=== PATIENT | female | born 1985 | race Caucasian/White ===

== ENCOUNTER 2020-12-23 11:19 | Emergency (ER) | payer SELFPAY ==
--- OUTSIDE RECORDS SUMMARY | 2020-12-23 11:22 | XMS REPORT | Clinical Summary ---
:1985 Author Organization [facility] MD [facility] Address [address] [place] [address] Care Team Providers Name Role Phone MD Mariluz Primary Care Provider MD Mariluz Unavailable BARTOLO Matta Unavailable Patrick Preston PhD Unavailable Allergies No Known Active Allergies Medications Medication Sig Dispensed Refills Start Date End Date Status VIT/IRON Take 1 tablet by 0 Active FUMARATE/FA ( mouth daily. ORAL) Leonid's wort 150 Take 2 capsules by 0 Active mg cap mouth twice daily. UNABLE TO FIND Take 2 capsules by 0 Active mouth twice daily. Med Name:goat weed psyllium seed, with Take 520 mg by 0 Active dextrose, (FIBER mouth daily. ORAL) topiramate (TOPAMAX) Take by mouth 0 Active 25 mg tablet daily. Active Problems Problem Noted Date Numbness of face 07/05/2018 Feeling of lump in throat 07/05/2018 Overview: 01/15 Regulatory Import Vocal cord paralysis 05/13/2015 Hoarse 01/30/2015 Thyroid nodule 12/16/2014 Encounters Date Type Specialty Care Team Description 07/26/2020 Orders Only Infectious Diseases Raciel Okeefe MD S ARS-CoV-2 vaccination after 12/24/2019 Surgical History Surgery Date Site/Laterality Comments THYROID LOBECTOMY Left NC REVISION OF LARYNX, 07/28/2015 Neck/Left Procedure : Thyroplasty; UNSPECIFIED Surgeon: Tong Lisa MD; Location: MAIN O R; Service: [facility] - HEAD & NECK SURGERY Medical devices from this surgery are in t he Implants section. NC LARYNGOSCOPY FLX/RGD 07/28/2015 N/A Procedur e: Flexible TELESCOPIC W/STROBOSCOPY Fiberop tic Laryngoscopy with Stroboscopy; [place] rgeon: Ruddy Norris, PhD; Loc ation: MAIN OR; Service: [facility] - HEAD & NECK ENDOCRINE Medical devices from this surgery are in t he Implants section. Medical History Medical History Date Comments Depression Multinodular goiter Social History Tobacco Use Types Packs/Day Years Used Date Never Smoker Alcohol Use Standard Drinks/Week Comments Yes 1 (1 standard drink = 0.6 oz pure alcoho l) Sex Assigned at Date Recorded Not on file Last Filed Vital Signs Not on file Plan of Treatment Health Maintenance Due Date Last Done Comments COVID-19 Vaccination (1) 1995 Implants Implanted Type Area Pier Hand Device Shelf Model / Identifier Expiration Serial / Date Lot Thyroplasty Implant Female Size 8 ([place]) - [id number] Implant Left: [facility] 12/15/2018 MT-08 / Implanted: Qty: 1 on 07/28/2015 by Tong Lisa MD at [facility] [employer] / [id number] Results Not on fileafter 12/24/2019 Insurance Payer Benefit Plan / Subscriber ID Effective Dates Phone Addre ss Type Group AETNA MANAGED CARE AETNA O [id number] 2007-Present HMO Pham [employer]ver Personal/Family Self 1985 [id number]Home) [facility] [place] [id number] Pham Grover Personal/Family Self 1985 [phone] [id number] (Home) [place] [id number]
--- OUTSIDE RECORDS SUMMARY | 2020-12-23 11:32 | XMS REPORT | Continuity of Care Document ---
:1985 Author Organization [facility] t Address [address] [place] [address] Care Team Providers Name Role Phone NO Primary Care Physician Unavailable HESTLA Attending Clinician Unavailable Felice LOBO, P. Attending Clinician Sary LOBO Attending Clinician REYNOLDS Attending Clinician Unavailable ANA Attending Clinician Unavailable Payers Payer Name Policy Type Policy Number Effective Date Expiration Date S danelle AETNA MANAGED [id number] 2007 MD Yousif CAREAETNA 00:00:00 [id number] Problems Condition Condition Condition Status Onset Resolution Last Treating Co mments Source Name Details Category Date Date Treatment Clinician Date Numbness Numbness Disease Active of face of face 3-21 Anderso 00:00: n 00 Feeling of Feeling of Disease Active Overview : lump in lump in 3-21 Formattin Wes so throat throat 00:00: g of this n 00 note might be different from the original. 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 05-13 Corky rso 00:00: n 00 Hoarse Hoarse Disease Active 2014-04 0-16 Anderso 00:00: n 00 Thyroid Thyroid Disease Active nodule nodule 12-16 Anderso 00:00: n 00 PHYSICAL Condition Active 2014-07-07 M emoria EXAMINATIO 07-02 08:50:00 l N PHYSICAL 00:00: Jorge n EXAMINATIO 00 N Active 07/02/2014 Condition 5 [facility] No known No known Disease Metho di active active st problems problems Hospit a l Allergies, Adverse Reactions, Alerts Allergy Allergy Status Severity Reaction(s) Onset Inactive Treating Comm ents Source Name Type Date Date Clinician Miconazo Propensi Active Hives Method i le ty to 07 st adverse 00:00: Hospita reaction 00 l s to drug No Known DA Active U [facility] No Known DA Active U 2006- [facility] Contrast 0-18 [place] Allergie 00:[facility]: e s 00 [facility] No Known DA Active U 2005-1 [facility] Drug 0-18 [place] All[facility] 00:[facility]: e s 00 [facility] No Known DA Active U 2006-1 [facility] Food 0-18 [place] All[facility]ie 00:[facility]: e s 00 [facility] No Known DA Active U 2006-1 [facility] Other 0-18 [place] All[facility]ie 00:00: e s 00 [facility] Center Family History Family Member Diagnosis Comments Start Date Stop Date Source Natural father No Known Problems Met [facility] Natural mother Fibromyalgia [facility]is t [facility] Natural mother Migraines [facility] Social History Social Habit Start Date Stop Date Quantity Comments Source History SDOH [facility] Alcohol Std Drinks Hospit al History SDAZ [facility] Alcohol Binge Hospital Tobacco use and 2019-08-08 2019-08-08 Never used Taoism exposure 00:00:00 00:00:00 Hospital Alcohol intake 2019-08-08 2019-08-08 Current Taoism 00:00:00 00:00:00 non-drinker of Hospital alcohol (finding) History SDAZ 2018-04-26 2018-04-26 1 [facility] Alcohol Frequency 00:00:00 00:00:00 Hospita l Sex Assigned At [birth year] MD Ortega on 00:00:00 00:00:00 Smoking Status Start Date Stop Date Source Never smoker [facility] al Medications Ordered Filled Start Stop Current Ordering Indication Dosage Frequency Signature Comments Components Source Medication Medication Date Date Medication? Clinician (SIG) Name Name butmarielenabital- Yes 1{tbl} Q6H Take 1 Me thodi acetaminoph 4-[address] en-caff 00:00: mouth Hospita (Esgic) 00 every 6 l 50-325-40 (six) mg per hours as tablet needed for headaches. Ajovy 225 Yes 225mg Inject 225 M ethodi mg/1.5 mL 4-[address] syringe 00:00: directed. Hospi ta 00 l topiramate Yes Take by (TOPAMAX) 3-21 mouth Anderso 25 mg 21:07: daily. n tablet 42 Yes 1{tbl} Take 1 MD VIT/IRON 3-21 tablet by Jordan o FUMARATE/FA 20:08: mouth n ( 37 daily. ORAL) Leonid's Yes 2{capsu Take 2 MD wort 150 mg 3-21 le} capsules Corky rso cap 20:08: by mouth n 37 twice daily. UNABLE TO Yes 2{capsu Take 2 MD FIND 3-21 le} capsules Anderso 20:08: by mouth n 37 twice daily. Med Name:goat weed psyllium Yes 520mg Take 520 MD seed, with 3-21 mg by Anderso dextrose, 20:08: mouth n (FIBER 37 daily. ORAL) Immunizations Ordered Immunization Filled Immunization Date Status Commen ts Source Name Name PFIZER COVID-19 MRNA 2020-08-21 Completed Meth odist VACCINATION 00:00:00 Hospital PFIZER COVID-19 MRNA 2020-07-31 Completed Meth odist VACCINATION 00:00:00 Hospital Vital Signs Vital Name Observation Time Observation Value Comments Source Body Temperature 2019-10-13 00:35:00 98.3 [degF] [facility] Weight 2019-10-12 18:40:00 160 [lb_av] [facility] BMI (Body Mass Index) 2019-10-12 18:40:00 27.5 kg/m2 [facility] Weight 2014-07-02 19:37:53 [facility] Height 2014-07-02 19:37:53 [facility] [place] Respitory Rate 2014-07-02 19:37:53 [facility] [place] Temperature Oral (F) 2014-07-02 19:37:53 98.0 F [facility] Heart Rate 2014-07-02 19:37:53 [facility] [place] Systolic (mm Hg) 2014-07-02 19:37:53 Foreign rial [place] Diastolic (mm Hg) 2014-07-02 19:37:53 Mem orial [place] Procedures Procedure Date / Time Performed Performing Clinician [facility] e Computed tomography of 2019-10-12 00:00:00 JOSE Guo - abdomen and pelvis with Patients Medical contrast Center Plan of Care Planned Activity Planned Date Details Comments Source Future Scheduled Test 1995 COVID-19 Vaccination MD Yousif 00:00:00 (1) [code = COVID-19 Vaccination (1)] Future Scheduled Test Hepatitis C Method [facility] Hospital screening (procedure) [code = 680768772] Future Scheduled Test Screening for [facility] malignant neoplasm of cervix (procedure) [code = 435122063] Future Scheduled Test [facility] [code = INFLUENZA VACCINE] Instructions Abdominal Pain - [facility] - Adult Patients [facility] Instructions Alcohol Abuse [facility] Encounters Start End Encounter Admission Attending Care Care Encounter Source Date/Time Date/Time Type Type Clinicians Facility Department ID 2020-11-25 Outpatient [facility] [id number] [facility] 11:03:38 YVONNE 2020-10-27 2020-10-27 Outpatient SOHAM ROUSSEAU [id number] [facility] 14:30:00 14:30:00 10 l [place] 2020-08-21 2020-08-21 Marcia Fraire 1.2.840.1 [id number] Methodi 08:15:38 08:20:38 Support Moises [address]01.1.[address] PJakob 3.430.2.7 Hospit a .3.174099 l .8 2020-08-21 2020-08-21 Travel 1.2.840.1 1.2.251.695 [id number] Methodi 00:00:00 00:00:[address] 3.430.2.7 0.2.7.3.698 Ho spita .3.304844 084.8 l .8 2020-08-21 2020-08-21 Outpatient FELICE, [facility] [id number] [address] [place] [address] 00:00:00 00:00:00 ANNEMARIESINDY [address] 2020-08-13 2020-08-13 Travel 1.2.840.1 1.2.507.787 [id number] Methodi 00:00:00 00:00:[address] 3.430.2.7 0.2.7.3.698 Ho spita .3.133315 084.8 l .8 2020-07-31 2020-07-31 Clinical 1.2.840.1 [id number] Methodi 08:19:44 08:24:[address] 3.430.2.7 Hospit a .3.879928 l .8 2020-07-31 2020-07-31 Outpatient [facility] [id number] [address] [place] [address] 00:00:00 00:00:[address] 2020-02-20 2020-02-20 Outpatient MHIE MHIE [id number] Memoria 10:30:00 10:30:00 09 liu Toth 2019-12-25 2019-12-25 Outpatient MHIE MHIE [id number] [facility]oria 08:30:00 08:30:00 08 liu Toth 2019-10-14 2019-10-14 Outpatient MHKM MH[facility] [id number] Memoria 06:50:00 06:50:00 liu hatfield 2019-10-12 2019-10-12 Registered [address] [facility] [id number] [facility] [address] 18:46:00 18:46:00 Emergency [place] Patients 83 [facility] - [facility] 2019-08-08 2019-08-08 Outpatient REGINO PEREZ [facility] [id number] [place] 00:00:00 00:00:[address] 2019-03-11 2019-03-11 Outpatient MHIE MHIE [id number] Memoria 12:30:00 12:30:00 07 liu Toth 2018-02-20 2018-02-20 Outpatient MHIE MHIE [id number] Memoria 11:00:00 11:00:00 06 liu Toth 2017-12-15 2017-12-15 Outpatient MHIE MHIE [id number] Memoria 12:30:00 12:30:00 05 liu Toth 2017-11-30 2017-11-30 Outpatient MHIE MHIE [id number] Memoria 11:00:00 11:00:00 04 liu Toth 2017-08-16 2017-08-16 Outpatient MHIE MHIE [id number] Memoria 12:00:00 12:00:00 03 liu Toth 2017-03-13 2017-03-13 Outpatient MHIE MHIE [id number] Memoria 08:00:00 08:00:00 02 liu Toth 2017-01-20 2017-01-20 Outpatient MHIE MHIE [id number] Memoria 08:30:00 08:30:00 01 liu Toth 2016-11-21 2016-11-21 Outpatient MHIE MHIE [id number] Memoria 11:30:00 11:30:00 00 liu Toth 2014-07-07 2014-07-07 Lab Report [facility] [id number] Memoria 00:00:00 00:00:00 harley Toth [id number] liu Medical [facility] Kruse 2014-07-02 2014-07-02 Office [facility] [id number] Memoria 00:00:00 00:00:00 Visit harley Toth [id number] liu Kruse Results Test Description Test Time Test Comments Results Result Sour e Comments CT ABDOMEN/PELVIS 2019-10-12 W 23:44:00 [facility] [address] [place] [address] Patient Name: SHELTON KUMAR MR #: [id number] : 1985 Age/Sex: 34/F Req #: [id number] [facility] Physician: Ordered by: RIKY TAYLOR DO Report #: [id number] Location: ER Room/Bed: Procedure: [id number] CT/CT ABDOMEN/PELVIS W Exam Date: 10/12/19 Exam Time: 2319 REPORT STATUS: Signed EXAMINATION: CT of the abdomen and pelvis with contrast. TECHNIQUE: Spiral CT images of the abdomen and pelvis were performed from the lung bases to the lesser trochanters after the intravenous administration of 100 cc of Isovue 370 and the oral administration of water. Coronal and sagittal reformatted images were obtained. COMPARISON: None. CLINICAL HISTORY:Diffuse abdominal pain. History of alcohol abuse DISCUSSION: ABDOMEN/PELVIS: LOWER THORAX:Mild dependent atelectasis in the left lower lobe. HEPATOBILIARY: Decreased attenuation of the hepatic parenchyma compared to the spleen, consistent with steatosis. The liver is moderately enlarged, measuring approximately 20 cm at the midclavicular line. No focal lesions. No intra or extrahepatic biliary ductal dilation. GALLBLADDER: No radio-opaque stones or sludge. Gallbladder is not fully distended. Mild wall enhancement. No pericholecystic fluid or fat stranding. SPLEEN: No splenomegaly. PANCREAS: No focal masses or ductal dilatation. Normal parenchymal enhancement. No peripancreatic/strandin g/inflammatory changes, free fluid or fluid collections. ADRENALS: No adrenal nodules. KIDNEYS/URETERS: No hydronephrosis, stones, or solid mass lesions. PELVIC ORGANS/BLADDER: Bladder and uterus are unremarkable. Bilateral Essure devices. No adnexal masses. 2.4 cm simple fluid structure in the left ovary, likely representing a dominant follicle. PERITONEUM/RETROPERITON EUM: No free air or fluid. LYMPH NODES: No intra-abdominal, retroperitoneal, pelvic or inguinal lymphadenopathy. VESSELS: The celiac trunk,superior and inferior mesenteric and bilateral renal arteries are patent The portal, superior mesenteric and splenic veins are patent. GI TRACT: No bowel dilation or evidence of obstruction. No pericolonic inflammatory changes. Appendix is well identified and normal in caliber. No wall thickening. Stomach is unremarkable. BONES AND SOFT TISSUE: No aggressive lytic or suspicious sclerotic lesions. Soft tissues are grossly unremarkable. IMPRESSION: 1. No acute abdominopelvic abnormalities. No evidence of pancreatitis. 2. Mild gallbladder wall enhancement, however, the gallbladder is not fully distended. No radiopaque stones, definite wall thickening, pericholecystic fluid or surrounding fat stranding to suggest cholecystitis. 3. Moderate hepatomegaly with diffuse fatty infiltration. Signed by: Dr. Cyrus Boothe M.D. on 10/12/2019 11:50 PM Dictated By: CYRUS BOOTHE MD 49 Transcribed By: ROQUE on 10/12/192349 COPY TO: RIKY TAYLOR DO CHEST SINGLE 2019-10-12 (PORTABLE) 22:16:00 [place] [address] Patient Name: SHELTON KUMAR MR #: [id number] : 1985 Age/Sex: 34/F Req #: [id number] Adm Physician: Ordered by: L[place]ON REYNOLDS DO Report #: [id number] Location: ER Room/Bed: Procedure: [id number] DX/CHEST SINGLE (PORTABLE) Exam Date: 10/12/19 Exam Time: 2144 REPORT STATUS: Signed Examination: Single AP view of the chest. COMPARISON: None. INDICATION: Abdominal pain, history of alcohol abuse IMPRESSION: 1. Lines and Tubes: None 2. Lungs are grossly clear. No consolidation or effusion. 3. Cardiomediastinal silhouette is normal. Pulmonary vasculature is normal. 4. No acute bony abnormalities. Signed by: Dr. Cyrus Boothe M.D. on 10/12/2019 10:16 PM Dictated By: CYRUS BOOTHE MD 15 Transcribed By: ROQUE on 10/12/192215 COPY TO: [place] REYNOLDS DO Serum or plasma protein measurement (mass/volume) 2019-10-12 20:43:00 Test Item Value Reference Range Interpretation Comme nts Total Protein (test code = 2885-2) 7.7 6.5-8.1 [facility] plasma albumin measurement (mass/volume)2019-10-12 20:43:00 Test Item Value Reference Range Interpretation Comments Albumin (test code = 1751-7) 3.9 3.5-5.0 [facility] globulin measurement (mass/volume) 2019-10-12 20:43:00 Test Item Value Reference Range Interpretation Comments Globulin (test code = 38836-2) 3.8 2.3-3.5 [facility] or plasma albumin/globulin mass [id number] 20:43:00 Test Item Value Reference Range Interpretation Comments Albumin/Globulin Ratio (test code = 1.0 0.8-2.0 1759-0) [facility] or plasma alkaline phosphatase measurement (enzymatic activity/volume)2019-10-12 20:43:00 Test Item Value Reference Range Interpretation Comments Alkaline Phosphatase (test code = 130 40-150 6768-6) [facility] or plasma amylase measurement (enzymatic activity/volume)2019-10-12 20:43:00 Test Item Value Reference Range Interpretation Comments Amylase Level (test code = 1798-8) 39 25-125 [facility] plasma lipase measurement (enzymatic activity/volume)2019-10-12 20:43:00 Test Item Value Reference Range Interpretation Comments Lipase (test code = 3040-3) 115 8-78 [facility] plasma ethanol measurement (mass/volume)2019-10-12 20:43:00 Test Item Value Reference Range Interpretation Comments Ethyl Alcohol Level (test code = < 10.0 0.0-10.0 5643-2) [facility] leukocytes automated count (number/volume)2019-10-12 20:43:00 Test Item Value Reference Range Interpretation Comments White Blood Count (test code = 6690-2) 9.08 4.8-10.8 [facility] erythrocytes automated count (number/volume)2019-10-12 20:43:00 Test Item Value Reference Range Interpretation Comments Red Blood Count (test code = 789-8) 3.60 3.6-5.1 [facility] hemoglobin measurement (moles/volume)2019-10-12 20:43:00 Test Item Value Reference Range Interpretation Comments Hemoglobin (test code = 56551-5) 12.2 12.0-16.0 [facility] HospitalAutomated blood hematocrit (volume fraction)2019-10-12 20:43:00 Test Item Value Reference Range Interpretation Comments Hematocrit (test code = 4544-3) 36.7 34.2-44.1 [facility] HospitalAutomated erythrocyte mean corpuscular kkrldu7290-21-11 20:43:00 Test Item Value Reference Range Interpretation Comments Mean Corpuscular Volume (test code = 101.9 81-99 787-2) [facility] HospitalAutom[facility] erythrocyte mean corpuscular hemoglobin (mass per erythrocyte)2019-10-12 20:43:00 Test Item Value Reference Range Interpretation Comments Mean Corpuscular Hemoglobin (test code 33.9 28-32 = 785-6) [facility] HospitalAutom[facility] erythrocyte mean corpuscular hemoglobin concentration measurement (mass/volume)2019-10-12 20:43:00 Test Item Value Reference Range Interpretation Comments Mean Corpuscular Hemoglobin Concent 33.2 31-35 (test code = 786-4) [facility] HospitalRDW LwzGd-Dve7991-83-27 20:43:00 Test Item Value Reference Range Interpretation Comments Red Cell Distribution Width (test code 16.5 11.7-14.4 = 30452-4) [facility] HospitalAutomated blood platelet count (count/volume)2019-10-12 20:43:00 Test Item Value Reference Range Interpretation Comments Platelet Count (test code = 777-3) 269 140-360 [facility] HospitalAutomated blood segmented neutrophil count as percentage of total qfyxipfpcf0366-77-24 20:43:00 Test Item Value Reference Range Interpretation Comments Neutrophils (%) (Auto) (test code = 53.8 38.7-80.0 45665-4) [facility] HospitalAutomated blood lymphocyte count as percentage ot total blsmfjufex5460-62-22 20:43:00 Test Item Value Reference Range Interpretation Comments Lymphocytes (%) (Auto) (test code = 31.4 18.0-39.1 736-9) [facility] HospitalAutomated blood monocyte count as percentage of total ialcvpzlfa6479-95-93 20:43:00 Test Item Value Reference Range Interpretation Comments Monocytes (%) (Auto) (test code = 10.6 4.4-11.3 5905-5) [facility] HospitalAutomated blood eosinophil count as percentage of total athznhspun0563-19-87 20:43:00 Test Item Value Reference Range Interpretation Comments Eosinophils (%) (Auto) (test code = 2.5 0.0-6.0 713-8) [facility] HospitalAutomated blood basophil count as percentage of total pnkktvccvl8295-29-88 20:43:00 Test Item Value Reference Range Interpretation Comments Basophils (%) (Auto) (test code = 1.3 0.0-1.0 706-2) [facility] HospitalFluoroscopic procedure less than one hour [id number] 20:43:00 Test Item Value Reference Range Interpretation Comments IM GRANULOCYTES % (test code = IM 0.4 0.0-1.0 GRANULOCYTES %) [facility] HospitalAutomated blood neutrophil count 2019-10-12 20:43:00 Test Item Value Reference Range Interpretation Comments Neutrophils # (Auto) (test code = 4.9 2.1-6.9 751-8) [facility] HospitalBlood lymphocytes count (number/volume) 2019-10-12 20:43:00 Test Item Value Reference Range Interpretation Comments Lymphocytes # (Auto) (test code = 2.9 1.0-3.2 99567-8) [facility] HospitalBlood monocytes automated count (number/volume)2019-10-12 20:43:00 Test Item Value Reference Range Interpretation Comments Monocytes # (Auto) (test code = 742-7) 1.0 0.2-0.8 [facility] HospitalAutomated blood eosinophil count 2019-10-12 20:43:00 Test Item Value Reference Range Interpretation Comments Eosinophils # (Auto) (test code = 0.2 0.0-0.4 711-2) [facility] HospitalAutomated blood basophil count (count/volume)2019-10-12 20:43:00 Test Item Value Reference Range Interpretation Comments Basophils # (Auto) (test code = 704-7) 0.1 0.0-0.1 [facility] HospitalFluoroscopic procedure less than one hour [id number] 20:43:00 Test Item Value Reference Range Interpretation Comments Absolute Immature Granulocyte (auto 0.04 0-0.1 (test code = Absolute Immature Granulocyte (auto) [facility] HospitalUrine color [id number] 20:43:00 Test Item Value Reference Range Interpretation Comments Urine Color (test code = 5778-6) YELLOW YELLOW [facility] HospitalUrine [id number] 20:43:00 Test Item Value Reference Range Interpretation Comments Urine Clarity (test code = 01620-7) CLEAR CLEAR [facility]land[facility] gravity of Urine by Test strip 2019-10-12 20:43:00 Test Item Value Reference Range Interpretation Comments Urine Specific [place] (test code = 1.025 1.010-1.025 5811-5) [facility] HospitalUrine pH measurement by automated test [id number] 20:43:00 Test Item Value Reference Range Interpretation Comments Urine pH (test code = 98550-9) 6 5-7 [facility] HospitalUrine leukocyte esterase detection by pefkgkcz0809-59-95 20:43:00 Test Item Value Reference Range Interpretation Comments Urine Leukocyte Esterase (test code NEGATIVE NEGATIVE = 5799-2) [facility] HospitalUrine nitrite ebipxktlo6335-82-27 20:43:00 Test Item Value Reference Range Interpretation Comments Urine Nitrite (test code = 45774-8) NEGATIVE NEGATIVE [facility] HospitalUrine protein measurement by test strip (mass/volume)2019-10-12 20:43:00 Test Item Value Reference Range Interpretation Comments Urine Protein (test code = 5804-0) NEGATIVE NEGATIVE [facility] HospitalUrine glucose [id number] 20:43:00 Test Item Value Reference Range Interpretation Comments Urine Glucose (UA) (test code = NEGATIVE NEGATIVE 2349-9) [facility] HospitalUrine ketones detection by automated test [id number] 20:43:00 Test Item Value Reference Range Interpretation Comments Urine Ketones (test code = 34130-8) TRACE NEGATIVE [facility] HospitalUrine opiates screening [id number] 20:43:00 Test Item Value Reference Range Interpretation Comments Urine Opiates Screen (test code = NEGATIVE NEGATIVE 24776-0) ALL TESTS PERFORMED MANUALLY ON Qloo TOX/SEE TEST --- 10/12/192131 ---OPIATES previously reported as: ALL TESTS PERFORMED MANUALLY ON Qloo TOX/SEE TESTSt. Luke[facility] HospitalBarbiturates screen, urine 2019-10-12 20:43:00 Test Item Value Reference Range Interpretation Comments Urine Barbiturates Screen (test code NEGATIVE NEGATIVE = 891978431) [facility] HospitalUrine phencyclidine detection by screening [id number] 20:43:00 Test Item Value Reference Range Interpretation Comments Urine Phencyclidine Screen (test NEGATIVE NEGATIVE code = 81540-5) [facility] HospitalUrine amphetamines detection by screen method > 1000 [id number] 20:43:00 Test Item Value Reference Range Interpretation Comments Urine Amphetamines Screen (test code NEGATIVE NEGATIVE = 13904-1) [facility] HospitalFluoroscopic procedure less than one hour [id number] 20:43:00 Test Item Value Reference Range Interpretation Comments Urine Methamphetamines Screen (test NEGATIVE NEGATIVE code = Urine Methamphetamines Screen) [facility] HospitalUrine benzodiazepines detection by screening [id number] 20:43:00 Test Item Value Reference Range Interpretation Comments Urine Benzodiazepines Screen (test POSITIVE NEGATIVE code = 52701-4) This test provides only a screen. Positive results should be repeated by a confirmatory test.[facility] HospitalUrine cocaine measurement (mass/volume)2019-10-12 20:43:00 Test Item Value Reference Range Interpretation Comments Urine Cocaine Screen (test code = NEGATIVE NEGATIVE 3398-5) [facility] HospitalUrine cannabinoids detection by screening [id number] 20:43:00 Test Item Value Reference Range Interpretation Comments Urine Cannabinoids Screen (test code NEGATIVE NEGATIVE = 09990-9) THESE RESULTS ARE FOR MEDICAL TREATMENT ONLYTHIS REPORT CONTAINS UNCONFIRMED SCREENING RESULTS*POSITIVE RESULTS WILL BE CONFIRMED BY REFERENCE LAB UPON REQUEST CUT-OFFDRUG CLASS CONCENTRATION ng/mLAmphetamines 1000Met hamphetamines 1000Cocaine 300Opiate 300Phencyclidine 25Cannabinoid 50Barbiturates 300Benzodiazepine 300Methadone 300 --- 10/12/193 ---THC previously reported as: THESE RESULTS ARE FOR MEDICAL TREATMENT ONLYTHIS REPORT CONTAINS UNCONFIRMED SCREENING RESULTS*POSITIVE RESULTS WILL BE CONFIRMED BY REFERENCE LAB UPON REQUEST CUT-OFFDRUG CLASS CONCENTRATION ng/mLAmphetamines 1000Methamphetamines 1000Cocaine 300Opiate 300Phencyclidine 25Cannabinoid 50Barbiturates 300Benzodiazepine 300Methadone 300[facility] Center[facility] methadone [id number] 20:43:00 Test Item Value Reference Range Interpretation Comments Urine Methadone Screen (test code = NEGATIVE NEGATIVE 98120-0) THESE RESULTS ARE FOR MEDICAL TREATMENT ONLYTHIS REPORT CONTAINS UNCONFIRMED SCREENING RESULTS*POSITIVE RESULTS WILL BE CONFIRMED BY REFERENCE LAB UPON REQUEST CUT-OFFDRUG CLASS CONCENTRATION ng/mLAmphetamines 1000Met hamphetamines 1000Cocaine Metabolite 300Opiate 300Phencyclidine 25Cannabinoid 50Barbiturates 300Benzodiazepine 300Methadone 300[facility] urobilinogen measurement by test strip (mass/volume)2019-10-12 20:43:00 Test Item Value Reference Range Interpretation Comments Urine Urobilinogen (test code = 0.2 0.2-1 49709-5) [facility] HospitalU[facility] total bilirubin measurement (mass/volume)2019-10-12 20:43:00 Test Item Value Reference Range Interpretation Comments Urine Bilirubin (test code = 1978-6) NEGATIVE NEGATIVE [facility] erythrocytes erxxwhslb3957-57-24 20:43:00 Test Item Value Reference Range Interpretation Comments Urine Blood (test code = 96654-3) NEGATIVE NEGATIVE [facility] HospitalAutomated urine sediment leukocyte count by microscopy (number/high power field)2019-10-12 20:43:00 Test Item Value Reference Range Interpretation Comments Urine WBC (test code = 5821-4) 0-5 0-5 [facility] HospitalErythrocytes detection in urine sediment by light rtxusptuox2909-33-97 20:43:00 Test Item Value Reference Range Interpretation Comments Urine RBC (test code = 73982-8) 0-5 0-5 [facility] HospitalBacteria detection in urine sediment by light nhuduayhgq7853-58-65 20:43:00 Test Item Value Reference Range Interpretation Comments Urine Bacteria (test code = 28495-3) RARE NONE [facility] HospitalEpithelial cells detection in urine sediment by light oghqlcfieq2873-32-89 20:43:00 Test Item Value Reference Range Interpretation Comments Urine Epithelial Cells (test code = FEW NONE 82447-6) [facility] sodium measurement (moles/volume)2019-10-12 20:43:00 Test Item Value Reference Range Interpretation Comments Sodium Level (test code = 2951-2) 135 136-145 [facility] or plasma potassium measurement (moles/volume)2019-10-12 20:43:00 Test Item Value Reference Range Interpretation Comments Potassium Level (test code = 2823-3) 4.1 3.5-5.1 [facility] or plasma chloride measurement (moles/volume)2019-10-12 20:43:00 Test Item Value Reference Range Interpretation Comments Chloride Level (test code = 2075-0) 102 98-107 [facility] or plasma carbon dioxide, total measurement (moles/volume)2019-10-12 20:43:00 Test Item Value Reference Range Interpretation Comments Carbon Dioxide Level (test code = 2027-12) [facility] or plasma anion [id number] 20:43:00 Test Item Value Reference Range Interpretation Comments Anion Gap (test code = 55414-2) 13.1 8-16 [facility] or plasma urea nitrogen measurement (mass/volume)2019-10-12 20:43:00 Test Item Value Reference Range Interpretation Comments Blood Urea Nitrogen (test code = 11-09 3094-0) [facility] plasma creatinine measurement (mass/volume)2019-10-12 20:43:00 Test Item Value Reference Range Interpretation Comments Creatinine (test code = 2160-0) 0.68 0.57-1.11 [facility] or plasma urea nitrogen/creatinine mass [id number] 20:43:00 Test Item Value Reference Range Interpretation Comments BUN/Creatinine Ratio (test code = 10-09 3097-3) [facility] HospitalEstimated glomerular filtration rate (GFR) bcydlfmvlftlp9854-72-08 20:43:00 Test Item Value Reference Range Interpretation Comments Estimat Glomerular Filtration Rate > 60 >60 (test code = 200668563) Ranges were taken from the National Kidney Disease Education Program and the National Kidney Foundation literature.Reference ranges:60 or greater: [place]86- 59 (for 3 consecutive months): Chronic kidneydisease 15 or less: Kidney failure [facility] HospitalGlucose nvqxkaejgdt7552-91-47 20:43:00 Test Item Value Reference Range Interpretation Comments Glucose Level (test code = TPC2581) 97 74-118 [facility] or plasma calcium measurement (mass/volume)2019-10-12 20:43:00 Test Item Value Reference Range Interpretation Comments Calcium Level (test code = 49509-7) 9.8 8.4-10.2 [facility] or plasma total bilirubin measurement (mass/volume)2019-10-12 20:43:00 Test Item Value Reference Range Interpretation Comments Total Bilirubin (test code = 1975-2) 0.6 0.2-1.2 [facility] HospitalFluoroscopic procedure less than one hour yntukjdz4378-54-54 20:43:00 Test Item Value Reference Range Interpretation Comments Aspartate Amino Transf (AST/SGOT) (test 23 5-34 code = Aspartate Amino Transf (AST/SGOT)) [facility] or plasma alanine aminotransferase measurement (enzymatic activity/volume)2019-10-12 20:43:00 Test Item Value Reference Range Interpretation Comments Alanine Aminotransferase (ALT/SGPT) 23 0-55 (test code = 1742-6) [facility] HospitalUrine Nyfxxqa3346-72-96 08:41:36 Test Item Value Reference Range Interpretation Comments ORGANISM (test code = Enterococcus faecium ORGANISM) Ampicillin (test code = S Amp) Ciprofloxacin (test code S = Cipro) Levofloxacin (test code = S Levo) Nitrofurantoin (test code I = Nitro) Benzylpenicillin (test S code = Ruddy) Erythromycin (test code = I Eryth) Gentamicin synergy (test S code = Gent-Syn) Linezolid (test code = S Linez) Streptomycin synergy S (test code = Strep-Syn) Tetracycline (test code = S Tetra) Vancomycin (test code = S Vanc) Final Report (test code = >=100,000 cfu/ml Final Report) Enterococcus faecium C Urine Added by GL_SET_CULT_RFLXDrugs of Abuse Screen Bduzs5697-52-54 16:47:04 Test Item Value Reference Range Interpretation Comments Amphetamine Screen Ur Negative Negative (test code = Amphetamine Screen Ur) Barbiturate Screen Ur Negative Negative (test code = Barbiturate Screen Ur) Benzodiazepines Ur Positive Negative A (test code = Benzodiazepines Ur) Cocaine Screen Ur Negative Negative (test code = Cocaine Screen Ur) Opiate Screen Ur (test Negative Negative code = Opiate Screen Ur) U PCP Scrn (test code Negative N = U PCP Scrn) Cannabinoid Screen Ur Negative Negative This a ssay provides a (test code = preliminary velvet lytical Cannabinoid Screen Ur) test result intended for medical purpose s only. Confirmation wi ll be sent to a Refer ence Lab only upon addit ional physician reque st.The cutoff levels u sed for this assay are as followsAmphetam ine 1000 ng/mlBarbi tuates 300 ng/mlBenzodiaze pine 300 ng.ml Cocaine 300 ng/mlOpia bradley 300 ng/ mlPCP 25 ng/mlTHC 50 ng/ml pH Ur (test code = pH 7.5 5.0-9.0 Ur) Urinalysis Qvajuyidulq3208-18-07 16:41:14 Test Item Value Reference Range Interpretation Comments UA WBC (test code = UA WBC) 11-20 /HPF 0-5 A UA RBC (test code = UA RBC) 0-4 /HPF 0-4 UA Bacteria (test code = UA 1+ /HPF Negative A Bacteria) UA Squam Epithelial (test code = TNTC /LPF N UA Squam Epithelial) UA Mucous (test code = UA Mucous) Moderate None Seen A UA Hyal Cast (test code = UA Hyal REVIEW /LPF N Cast) Urinalysis with Culture, if [id number] 16:41:14 Test Item Value Reference Range Interpretation Comments UA Color (test code = UA Yellow Yellow Color) UA Appear (test code = Cloudy Clear A UA Appear) UA pH (test code = UA 7.5 pH) UA Spec Grav (test code 1.010 SGU 1.005-1.030 = UA Spec Grav) UA Glucose (test code = Negative Negative UA Glucose) UA Bili (test code = UA Negative Negative Bili) UA Ketones (test code = Negative Negative UA Ketones) UA Blood (test code = UA Negative Negative Blood) UA Protein (test code = Trace Negative A UA Protein) UA Urobilinogen (test 1.0 EU/dL >0.2 code = UA Urobilinogen) UA Nitrite (test code = Negative Negative UA Nitrite) UA Leuk Est (test code = Trace Negative A UA Leuk Est) UA Micro Ind? (test code Indicated Not Indicated A Re sult created by = UA Micro Ind?) rule GL_SET_UA_MICRO _IND XR Chest 1 View Kagdule7376-71-13 16:04:41Patient: SHELTON KUMAR Date/Time10/01/2019 15:48 CDTReason for ExamCongestionReportCHEST SINGLE VIEW: 1551 hours.COMPARISON: November 10, 2018.CLINICAL INFORMATION: Congestion.Cardiomediastinal structures are within normal limits. No pleural fluid or pulmonary infiltrates are identified. The bony architecture appears intact, where adequately seen.IMPRESSION:1. No radiographic findings of acute cardiopulmonary disease. No interval change. Final Dictated by: MD Scott Arthur LDictated DT/TM: 10/01/2019 4:04 pmSigned by: MD Scott Arthur LSigned (Electronic Signature): 10/01/2019 4:04 pmBeta HCG Beyqkwkuble6774-80-44 15:40:01 Test Item Value Reference Range Interpretation Comments Beta HCG, Serum Qualitative (test Negative Negative code = Beta HCG, Serum Qualitative) Thyroid Stimulating Ijdnuzh6658-04-51 15:25:09 Test Item Value Reference Range Interpretation Comments TSH (test code = TSH) 5.550 IntlUnit/mL 0.358-3.740 H Alcohol [id number] 15:25:09 Test Item Value Reference Range Interpretation Comments Ethanol Level (test code = Ethanol 189 mg/dL 0-13 H Level) Salicylate [id number] 15:25:09 Test Item Value Reference Range Interpretation Comments Salicylate Level (test code = <1.7 mg/dL 2.8-20.0 L Salicylate Level) Comprehensive Metabolic [id number] 15:25:08 Test Item Value Reference Range Interpretation Comments Sodium Level (test code = 141 mmol/L 136-145 Sodium Level) Potassium Level (test code = 3.4 mmol/L 3.5-5.1 L Potassium Level) Chloride Level (test code = 106 mmol/L 98-107 Chloride Level) CO2 (test code = CO2) 27 mmol/L 21-32 Anion Gap (test code = Anion 8 mmol/L 7-16 Gap) BUN (test code = BUN) 2 mg/dL 7-18 L Creatinine Level (test code = 0.4 mg/dL 0.6-1.0 L Creatinine Level) Glucose Level (test code = 95 mg/dL 74-106 Glucose Level) Calcium Level (test code = 8.3 mg/dL 8.5-10.1 L Calcium Level) Alk Phos (test code = Alk 277 IntlUnit/L 50-136 H Phos) Bilirubin Total (test code = 1.0 mg/dL 0.2-1.0 Bilirubin Total) Albumin Level (test code = 3.1 g/dL 3.4-5.0 L Albumin Level) Protein Total (test code = 7.4 g/dL 6.4-8.2 Protein Total) ALT (test code = ALT) 81 IntlUnit/L 12-78 H AST (test code = AST) 342 IntlUnit/L 15-37 H Creatine [id number] 15:25:08 Test Item Value Reference Range Interpretation Comments CK (test code = CK) 55 IntlUnit/L 26-192 Comprehensive Metabolic Smgpt9052-04-04 15:25:08 Test Item Value Reference Range Interpretation Comments Sodium Level (test code = 141 mmol/L 136-145 Sodium Level) Potassium Level (test code 3.4 mmol/L 3.5-5.1 L = Potassium Level) Chloride Level (test code 106 mmol/L 98-107 = Chloride Level) CO2 (test code = CO2) 27 mmol/L 21-32 Anion Gap (test code = 8 mmol/L 7-16 Anion Gap) BUN (test code = BUN) 2 mg/dL 7-18 L Creatinine Level (test 0.4 mg/dL 0.6-1.0 L code = Creatinine Level) Glucose Level (test code = 95 mg/dL 74-106 Glucose Level) Calcium Level (test code = 8.3 mg/dL 8.5-10.1 L Calcium Level) Alk Phos (test code = Alk 277 IntlUnit/L 50-136 H Phos) Bilirubin Total (test code 1.0 mg/dL 0.2-1.0 = Bilirubin Total) Albumin Level (test code = 3.1 g/dL 3.4-5.0 L Albumin Level) Protein Total (test code = 7.4 g/dL 6.4-8.2 Protein Total) ALT (test code = ALT) 81 IntlUnit/L 12-78 H AST (test code = AST) 342 IntlUnit/L 15-37 H eGFR AA (test code = eGFR >60 mL/min/1.73 m2 N AA) Comprehensive Metabolic [id number] 15:25:08 Test Item Value Reference Range Interpretation Comments Sodium Level (test code = 141 mmol/L 136-145 Sodium Level) Potassium Level (test code 3.4 mmol/L 3.5-5.1 L = Potassium Level) Chloride Level (test code 106 mmol/L 98-107 = Chloride Level) CO2 (test code = CO2) 27 mmol/L 21-32 Anion Gap (test code = 8 mmol/L 7-16 Anion Gap) BUN (test code = BUN) 2 mg/dL 7-18 L Creatinine Level (test 0.4 mg/dL 0.6-1.0 L code = Creatinine Level) Glucose Level (test code = 95 mg/dL 74-106 Glucose Level) Calcium Level (test code = 8.3 mg/dL 8.5-10.1 L Calcium Level) Alk Phos (test code = Alk 277 IntlUnit/L 50-136 H Phos) Bilirubin Total (test code 1.0 mg/dL 0.2-1.0 = Bilirubin Total) Albumin Level (test code = 3.1 g/dL 3.4-5.0 L Albumin Level) Protein Total (test code = 7.4 g/dL 6.4-8.2 Protein Total) ALT (test code = ALT) 81 IntlUnit/L 12-78 H AST (test code = AST) 342 IntlUnit/L 15-37 H eGFR AA (test code = eGFR >60 mL/min/1.73 m2 N AA) eGFR Non-AA (test code = >60 mL/min/1.73 m2 N eGFR Non-AA) Acetaminophen [id number] 15:24:24 Test Item Value Reference Range Interpretation Comments Acetaminophen Level (test code = <3 mcg/mL 10-30 L Acetaminophen Level) Prothrombin Time and [id number] 15:14:52 Test Item Value Reference Range Interpretation Comments Prothrombin Time (test code = 12.0 seconds 9.2-12.0 Prothrombin Time) INR (test code = INR) 1.2 ratio 0.9-1.2 Partial Thromboplastin [id number] 15:14:52 Test Item Value Reference Range Interpretation Comments Partial Thromboplastin 28.5 seconds 24.0-35.0 APTT Heparin Time (test code = Therapeuti c Range: Partial Thromboplastin 47.9- 80.4 seconds Time) Complete Blood Count with [id number] 15:00:51 Test Item Value Reference Range Interpretation Comments WBC (test code = WBC) 3.2 x10 4.8-10.8 L RBC (test code = RBC) 3.36 x10 4.20-5.50 L Hgb (test code = Hgb) 11.2 g/dL 12.0-16.0 L Hct (test code = Hct) 32.9 % 35.0-47.0 L MCV (test code = MCV) 97.9 fL 80.0-95.0 H MCHC (test code = MCHC) 34.0 g/dL 31.0-36.0 RDW (test code = RDW) 21.5 % 11.5-14.5 N MCH (test code = MCH) 33.3 pg 26.0-32.0 H Platelets (test code = 134 x10 140-440 L Platelets) MPV (test code = MPV) 10.7 fL 7.5-11.2 Slide Review (test code Auto N Resu lt created by = Slide Review) GL_SET_SLIDE _REVIEW_A UTO Automated [id number] 15:00:51 Test Item Value Reference Range Interpretation Comments Neutro Auto (test code = Neutro Auto) 55.5 % N Lymph Auto (test code = Lymph Auto) 33.8 % N Merrick Auto (test code = Merrick Auto) 8.0 % N Eos, Auto (test code = Eos, Auto) 0.6 % N Basophil Auto (test code = Basophil 1.8 % N Auto) Neutro Absolute (test code = Neutro 1.8 x10 2.7-7.3 L Absolute) Lymph Absolute (test code = Lymph 1.1 x10 0.8-3.5 Absolute) Merrick Absolute (test code = Merrick 0.3 x10 0.3-0.9 Absolute) Eos Absolute (test code = Eos 0.0 x10 0.0-0.3 Absolute) Baso Absolute (test code = Baso 0.1 x10 0.0-0.1 Absolute) IG [id number] 15:00:51 Test Item Value Reference Range Interpretation Comments IG (test code = IG) 0 % 0-5 IG Abs (test code = IG Abs) 0 x10 N Potassium [id number] 16:52:11 Test Item Value Reference Range Interpretation Comments Potassium Level (test code = 3.4 mmol/L 3.5-5.1 L Potassium Level) Magnesium [id number] 12:45:08 Test Item Value Reference Range Interpretation Comments Magnesium Level (test code = 1.4 mg/dL 1.6-2.6 L Magnesium Level) Phosphorus [id number] 12:45:08 Test Item Value Reference Range Interpretation Comments Phosphorus Level (test code = 2.6 mg/dL 2.5-4.9 Phosphorus Level) [id number] 11:58:07 Test Item Value Reference Range Interpretation Comments RBC Morph (test code = RBC As Indicated Normal A Morph) Anisocyte (test code = 1+ A Anisocyte) Poik (test code = Poik) 1+ A Plt Estimation (test code = Plt Decreased Normal A Estimation) Comprehensive Metabolic [id number] 11:53:15 Test Item Value Reference Range Interpretation Comments Sodium Level (test code = 138 mmol/L 136-145 Sodium Level) Potassium Level (test code = 3.1 mmol/L 3.5-5.1 L Potassium Level) Chloride Level (test code = 100 mmol/L 98-107 Chloride Level) CO2 (test code = CO2) 29 mmol/L 21-32 Anion Gap (test code = Anion 9 mmol/L 7-16 Gap) BUN (test code = BUN) 6 mg/dL 7-18 L Creatinine Level (test code = 0.5 mg/dL 0.6-1.0 L Creatinine Level) Glucose Level (test code = 89 mg/dL 74-106 Glucose Level) Calcium Level (test code = 7.3 mg/dL 8.5-10.1 L Calcium Level) Alk Phos (test code = Alk 154 IntlUnit/L 50-136 H Phos) Bilirubin Total (test code = 3.7 mg/dL 0.2-1.0 H Bilirubin Total) Albumin Level (test code = 3.0 g/dL 3.4-5.0 L Albumin Level) Protein Total (test code = 6.4 g/dL 6.4-8.2 Protein Total) ALT (test code = ALT) 55 IntlUnit/L 12-78 AST (test code = AST) 259 IntlUnit/L 15-37 H Comprehensive Metabolic [id number] 11:53:15 Test Item Value Reference Range Interpretation Comments Sodium Level (test code = 138 mmol/L 136-145 Sodium Level) Potassium Level (test code 3.1 mmol/L 3.5-5.1 L = Potassium Level) Chloride Level (test code 100 mmol/L 98-107 = Chloride Level) CO2 (test code = CO2) 29 mmol/L 21-32 Anion Gap (test code = 9 mmol/L 7-16 Anion Gap) BUN (test code = BUN) 6 mg/dL 7-18 L Creatinine Level (test 0.5 mg/dL 0.6-1.0 L code = Creatinine Level) Glucose Level (test code = 89 mg/dL 74-106 Glucose Level) Calcium Level (test code = 7.3 mg/dL 8.5-10.1 L Calcium Level) Alk Phos (test code = Alk 154 IntlUnit/L 50-136 H Phos) Bilirubin Total (test code 3.7 mg/dL 0.2-1.0 H = Bilirubin Total) Albumin Level (test code = 3.0 g/dL 3.4-5.0 L Albumin Level) Protein Total (test code = 6.4 g/dL 6.4-8.2 Protein Total) ALT (test code = ALT) 55 IntlUnit/L 12-78 AST (test code = AST) 259 IntlUnit/L 15-37 H eGFR AA (test code = eGFR >60 mL/min/1.73 m2 N AA) Comprehensive Metabolic [id number] 11:53:15 Test Item Value Reference Range Interpretation Comments Sodium Level (test code = 138 mmol/L 136-145 Sodium Level) Potassium Level (test code 3.1 mmol/L 3.5-5.1 L = Potassium Level) Chloride Level (test code 100 mmol/L 98-107 = Chloride Level) CO2 (test code = CO2) 29 mmol/L 21-32 Anion Gap (test code = 9 mmol/L 7-16 Anion Gap) BUN (test code = BUN) 6 mg/dL 7-18 L Creatinine Level (test 0.5 mg/dL 0.6-1.0 L code = Creatinine Level) Glucose Level (test code = 89 mg/dL 74-106 Glucose Level) Calcium Level (test code = 7.3 mg/dL 8.5-10.1 L Calcium Level) Alk Phos (test code = Alk 154 IntlUnit/L 50-136 H Phos) Bilirubin Total (test code 3.7 mg/dL 0.2-1.0 H = Bilirubin Total) Albumin Level (test code = 3.0 g/dL 3.4-5.0 L Albumin Level) Protein Total (test code = 6.4 g/dL 6.4-8.2 Protein Total) ALT (test code = ALT) 55 IntlUnit/L 12-78 AST (test code = AST) 259 IntlUnit/L 15-37 H eGFR AA (test code = eGFR >60 mL/min/1.73 m2 N AA) eGFR Non-AA (test code = >60 mL/min/1.73 m2 N eGFR Non-AA) Complete Blood Count with [id number] 11:35:44 Test Item Value Reference Range Interpretation Comments WBC (test code = WBC) 2.7 x10 4.8-10.8 L RBC (test code = RBC) 3.32 x10 4.20-5.50 L Hgb (test code = Hgb) 10.8 g/dL 12.0-16.0 L MCV (test code = MCV) 94.3 fL 80.0-95.0 Hct (test code = Hct) 31.3 % 35.0-47.0 L RDW (test code = RDW) 16.9 % 11.5-14.5 N MCHC (test code = MCHC) 34.5 g/dL 31.0-36.0 MCH (test code = MCH) 32.5 pg 26.0-32.0 H Platelets (test code = 44 x10 140-440 L Platelets) MPV (test code = MPV) 12.0 fL 7.5-11.2 H Slide Review (test code Smear N Resu lt created by = Slide Review) GL_SET_SLIDE _REVIEW_A UTO GL_JVH_XN_R FLX GL_JVH_XN_RFLX Pos Count XN (test code A N = Pos Count XN) Automated [id number] 11:35:44 Test Item Value Reference Range Interpretation Comments Neutro Auto (test code = Neutro Auto) 47.3 % N Lymph Auto (test code = Lymph Auto) 42.1 % N Merrick Auto (test code = Merrick Auto) 8.3 % N Eos, Auto (test code = Eos, Auto) 1.1 % N Basophil Auto (test code = Basophil 0.8 % N Auto) Neutro Absolute (test code = Neutro 1.3 x10 2.7-7.3 L Absolute) Lymph Absolute (test code = Lymph 1.1 x10 0.8-3.5 Absolute) Merrick Absolute (test code = Merrick 0.2 x10 0.3-0.9 L Absolute) Eos Absolute (test code = Eos 0.0 x10 0.0-0.3 Absolute) Baso Absolute (test code = Baso 0.0 x10 0.0-0.1 Absolute) IG [id number] 11:35:44 Test Item Value Reference Range Interpretation Comments IG (test code = IG) 0 % 0-5 IG Abs (test code = IG Abs) 0 x10 N XR Abdomen Series + Chest 1 [id number] 06:20:05Patient: SHELTON KUMAR Date/Time09/18/201919:59 CDTReason for ExamNausea and vomitingReportHISTORY: Nausea and vomiting, abdominal painX-RAY ABDOMEN 2 VIEWS:COMPARISON: NoneSupine and upright views were obtained.The bowel gas pattern is normal. No free air or mass effect is seen.Phleboliths are seen in the pelvis. Essure contraceptive linear opacities are noted in the mid pelvis.The bones are grossly unremarkable.IMPRESSION:No significant abnormality is demonstrated.CHEST SINGLE VIEW:COMPARISON: 11/10/2018Cardiomediastinal structures are within normal limits.No pleural fluid or pulmonary infiltrates are identified.The bony architecture appears intact, where adequately seen.IMPRESSION:No active cardiopulmonary process is identified. Final Dictated by: MD Tolbert Ramon JulioDictated DT/TM: 09/19/2019 6:15 amSigned by: MD Tolbert Ramon JulioSigned (Electronic Signature): 09/19/2019 6:20 amCT Abdomen and Pelvis w/ [id number] 01:07:16Patient: SHELTON KUMAR Date/Time09/19/201900:45 CDTReason for ExamAbdominal painReportOrdering physician: Armando Rayo StithIndication: Nausea and vomiting, left upper quadrant painCOMPARISON: NoneTECHNIQUE: Axial images of the abdomen and pelvis are performed following administration of intravenous contrast material. Images were reformatted in the coronal and sagittal plane. CT scan was performed according to ALARA (as low as reasonably achievable) policy.FINDINGS: The lung bases are clear. There is diffuse fatty infiltration of the liver. The gallbladder, spleen, adrenal glands and pancreas are within normal limits. The kidneys are normal in appearance bilaterally without hydronephrosis. No abdominal aortic aneurysm or dissection is appreciated.There is no free fluid in the pelvis. The CT appearance of the uterus and ovaries is within normal limits. There is no bowel obstruction, widespread diverticulosis or acute diverticulitis. The appendix is identified and within normal limits. Bone windows through the abdomen and pelvis demonstrate no osseous destructive lesion.IMPRESSION:No acute process identified in the abdomen or pelvis.Diffuse fatty infiltration of the liver.RL: [id number]: [id number] signed by Ciera Butler MD, PhD at 09/19/2019 1:12 AM Final Dictated by: Contributor_system, PSCRIBE_CTZDictated DT/TM: 09/19/2019 1:14 amSigned by: MD Loyd, Ciera GSigned (Electronic Signature): 09/19/2019 1:07 amLipase [id number] 23:07:11 Test Item Value Reference Range Interpretation Comments Lipase Level (test code = 132 IntlUnit/L 73-393 Lipase Level) CT Brain/Head w/o [id number] 20:55:04Patient: SHELTON KUMAR Date/Time09/18/201920:24 CDTReason for ExamConfusionReportOrdering Physician: Buck MckeonORY: Headache.COMPARISON: NoneTECHNIQUE: CT of the brain without IV contrast. This study was performed according to ALARA principle for radiation dose reduction.FINDINGS:There is no acute intracranial hemorrhage. There is no shift of normally midline structures. There is no hydrocephalus. Duque-white matter differentiation is preserved. The visualized paranasal sinuses and mastoid air cells are clear Soft tissues are normal. Osseous structures are normal. Paranasal sinuses and mastoid air cells remain well aerated.IMPRESSION:No CT evidence of acute intracranial abnormalities.Please note that MRI is more sensitive in the setting of hyperacute ischemia.RL: 135 Final Dictated by: Contributor_system, PSCRIBE_CTZDictated DT/TM: 09/18/2019 8:58pmSigned by: MD Renato, Joe MihaiSigned (Electronic Signature): 09/18/2019 8:55 pm Magnesium [id number] 20:28:11 Test Item Value Reference Range Interpretation Comments Magnesium Level (test code = 1.0 mg/dL 1.6-2.6 L Magnesium Level) Partial Thromboplastin [id number] 19:39:25 Test Item Value Reference Range Interpretation Comments Partial Thromboplastin 27.3 seconds 24.0-35.0 APTT Heparin Time (test code = Therapeuti c Range: Partial Thromboplastin 47.9- 80.4 seconds Time) Comprehensive Metabolic [id number] 19:38:05 Test Item Value Reference Range Interpretation Comments Sodium Level (test 140 mmol/L 136-145 code = Sodium Level) Potassium Level (test 2.9 mmol/L 3.5-5.1 CTRB/C RUBIN code = Potassium DUNAHOE Level) RN/09/18/2019 19:38:01 CDT/ST Chloride Level (test 93 mmol/L 98-107 L code = Chloride Level) CO2 (test code = CO2) 34 mmol/L 21-32 H Anion Gap (test code 13 mmol/L 7-16 = Anion Gap) BUN (test code = BUN) 8 mg/dL 7-18 Creatinine Level 0.5 mg/dL 0.6-1.0 L (test code = Creatinine Level) Glucose Level (test 91 mg/dL 74-106 code = Glucose Level) Calcium Level (test 8.2 mg/dL 8.5-10.1 L code = Calcium Level) Alk Phos (test code = 176 IntlUnit/L 50-136 H Alk Phos) Bilirubin Total (test 3.1 mg/dL 0.2-1.0 H code = Bilirubin Total) Albumin Level (test 3.7 g/dL 3.4-5.0 code = Albumin Level) Protein Total (test 7.8 g/dL 6.4-8.2 code = Protein Total) ALT (test code = ALT) 66 IntlUnit/L 12-78 AST (test code = AST) 249 IntlUnit/L 15-37 H Comprehensive Metabolic [id number] 19:38:05 Test Item Value Reference Range Interpretation Comments Sodium Level (test 140 mmol/L 136-145 code = Sodium Level) Potassium Level (test 2.9 mmol/L 3.5-5.1 CTRB/C RUBIN code = Potassium DUNAHOE Level) 09/18/2019 19:38:01 CDT/ST Chloride Level (test 93 mmol/L 98-107 L code = Chloride Level) CO2 (test code = CO2) 34 mmol/L 21-32 H Anion Gap (test code 13 mmol/L 7-16 = Anion Gap) BUN (test code = BUN) 8 mg/dL 7-18 Creatinine Level 0.5 mg/dL 0.6-1.0 L (test code = Creatinine Level) Glucose Level (test 91 mg/dL 74-106 code = Glucose Level) Calcium Level (test 8.2 mg/dL 8.5-10.1 L code = Calcium Level) Alk Phos (test code = 176 IntlUnit/L 50-136 H Alk Phos) Bilirubin Total (test 3.1 mg/dL 0.2-1.0 H code = Bilirubin Total) Albumin Level (test 3.7 g/dL 3.4-5.0 code = Albumin Level) Protein Total (test 7.8 g/dL 6.4-8.2 code = Protein Total) ALT (test code = ALT) 66 IntlUnit/L 12-78 AST (test code = AST) 249 IntlUnit/L 15-37 H eGFR AA (test code = >60 mL/min/1.73 N eGFR AA) m2 Comprehensive Metabolic [id number] 19:38:05 Test Item Value Reference Range Interpretation Comments Sodium Level (test 140 mmol/L 136-145 code = Sodium Level) Potassium Level (test 2.9 mmol/L 3.5-5.1 CTRB/C RUBIN code = Potassium DUNAHOE Level) 09/18/2019 19:38:01 CDT/ST Chloride Level (test 93 mmol/L 98-107 L code = Chloride Level) CO2 (test code = CO2) 34 mmol/L 21-32 H Anion Gap (test code 13 mmol/L 7-16 = Anion Gap) BUN (test code = BUN) 8 mg/dL 7-18 Creatinine Level 0.5 mg/dL 0.6-1.0 L (test code = Creatinine Level) Glucose Level (test 91 mg/dL 74-106 code = Glucose Level) Calcium Level (test 8.2 mg/dL 8.5-10.1 L code = Calcium Level) Alk Phos (test code = 176 IntlUnit/L 50-136 H Alk Phos) Bilirubin Total (test 3.1 mg/dL 0.2-1.0 H code = Bilirubin Total) Albumin Level (test 3.7 g/dL 3.4-5.0 code = Albumin Level) Protein Total (test 7.8 g/dL 6.4-8.2 code = Protein Total) ALT (test code = ALT) 66 IntlUnit/L 12-78 AST (test code = AST) 249 IntlUnit/L 15-37 H eGFR AA (test code = >60 mL/min/1.73 N eGFR AA) m2 eGFR Non-AA (test >60 mL/min/1.73 N code = eGFR Non-AA) m2 Creatine [id number] 19:37:15 Test Item Value Reference Range Interpretation Comments CK (test code = CK) 77 IntlUnit/L 26-192 Alcohol [id number] 19:37:15 Test Item Value Reference Range Interpretation Comments Ethanol Level (test code = Ethanol 11 mg/dL 0-13 Level) Acetaminophen [id number] 19:36:25 Test Item Value Reference Range Interpretation Comments Acetaminophen Level (test code = <3 mcg/mL 10-30 L Acetaminophen Level) Salicylate [id number] 19:36:25 Test Item Value Reference Range Interpretation Comments Salicylate Level (test code = <1.7 mg/dL 2.8-20.0 L Salicylate Level) Prothrombin Time and [id number] 19:31:25 Test Item Value Reference Range Interpretation Comments Prothrombin Time (test code = 13.5 seconds 9.2-12.0 H Prothrombin Time) INR (test code = INR) 1.3 ratio 0.9-1.2 H Complete Blood Count with [id number] 19:29:29 Test Item Value Reference Range Interpretation Comments WBC (test code = WBC) 3.5 x10 4.8-10.8 L RBC (test code = RBC) 3.85 x10 4.20-5.50 L Hgb (test code = Hgb) 12.6 g/dL 12.0-16.0 MCV (test code = MCV) 93.2 fL 80.0-95.0 Hct (test code = Hct) 35.9 % 35.0-47.0 MCHC (test code = MCHC) 35.1 g/dL 31.0-36.0 RDW (test code = RDW) 16.9 % 11.5-14.5 N MCH (test code = MCH) 32.7 pg 26.0-32.0 H Platelets (test code = 49 x10 140-440 L Platelets) MPV (test code = MPV) 11.5 fL 7.5-11.2 H Slide Review (test code Auto N Resu lt created by = Slide Review) GL_SET_SLIDE _REVIEW_A UTO GL_JVH_XN_R FLX GL_JVH_XN_RFLX Pos Count XN (test code A N = Pos Count XN) Automated [id number] 19:29:29 Test Item Value Reference Range Interpretation Comments Neutro Auto (test code = Neutro Auto) 56.3 % N Lymph Auto (test code = Lymph Auto) 33.0 % N Merrick Auto (test code = Merrick Auto) 8.9 % N Eos, Auto (test code = Eos, Auto) 0.3 % N Basophil Auto (test code = Basophil 0.9 % N Auto) Neutro Absolute (test code = Neutro 2.0 x10 2.7-7.3 L Absolute) Lymph Absolute (test code = Lymph 1.2 x10 0.8-3.5 Absolute) Merrick Absolute (test code = Merrick 0.3 x10 0.3-0.9 Absolute) Eos Absolute (test code = Eos 0.0 x10 0.0-0.3 Absolute) Baso Absolute (test code = Baso 0.0 x10 0.0-0.1 Absolute) IG [id number] 19:29:29 Test Item Value Reference Range Interpretation Comments IG (test code = IG) 1 % 0-5 IG Abs (test code = IG Abs) 0 x10 N Urinalysis [id number] 19:24:52 Test Item Value Reference Range Interpretation Comments UA WBC (test code = UA WBC) 11-20 /HPF 0-5 A UA RBC (test code = UA RBC) 5-10 /HPF 0-4 A UA Bacteria (test code = UA 4+ /HPF Negative A Bacteria) UA Squam Epithelial (test code = 74-200 /LPF 0-20 A UA Squam Epithelial) UA Hyal Cast (test code = UA Hyal 7-10 /LPF 1-6 A Cast) Urinalysis with Microscopic if [id number] 19:24:52 Test Item Value Reference Range Interpretation Comments UA Color (test code = UA Graham Yellow A Color) UA Appear (test code = Turbid Clear A UA Appear) UA pH (test code = UA 5.5 pH) UA Spec Grav (test code 1.020 SGU 1.005-1.030 = UA Spec Grav) UA Glucose (test code = Negative Negative UA Glucose) UA Ketones (test code = Negative Negative UA Ketones) UA Blood (test code = UA 2+ Negative A Blood) UA Protein (test code = 2+ Negative A UA Protein) UA Bili (test code = UA 2+ Negative A Bili) UA Urobilinogen (test 4.0 EU/dL >0.2 A code = UA Urobilinogen) UA Nitrite (test code = Positive Negative A UA Nitrite) UA Leuk Est (test code = 1+ Negative A UA Leuk Est) UA Micro Ind? (test code Indicated Not Indicated A Re sult created by = UA Micro Ind?) rule GL_SET_UA_MICRO _IND Beta HCG [id number] 19:22:18 Test Item Value Reference Range Interpretation Comments Beta HCG, Serum Qualitative (test Negative Negative code = Beta HCG, Serum Qualitative) Drugs of Abuse Screen [id number] 19:10:48 Test Item Value Reference Range Interpretation Comments Amphetamine Screen Ur Negative Negative (test code = Amphetamine Screen Ur) Barbiturate Screen Ur Negative Negative (test code = Barbiturate Screen Ur) Benzodiazepines Ur Positive Negative A (test code = Benzodiazepines Ur) Cocaine Screen Ur Negative Negative (test code = Cocaine Screen Ur) Opiate Screen Ur (test Negative Negative code = Opiate Screen Ur) U PCP Scrn (test code Negative N = U PCP Scrn) Cannabinoid Screen Ur Negative Negative This a ssay provides a (test code = preliminary velvet lytical Cannabinoid Screen Ur) test result intended for medical purpose s only. Confirmation wi ll be sent to a Refer ence Lab only upon addit ional physician reque st.The cutoff levels u sed for this assay are as followsAmphetam ine 1000 ng/mlBarbi tuates 300 ng/mlBenzodiaze pine 300 ng.ml Cocaine 300 ng/mlOpia bradley 300 ng/ mlPCP 25 ng/mlTHC 50 ng/ml pH Ur (test code = pH 5.5 5.0-9.0 Ur) Blood [id number] 18:02:16No growth at 5 days.Urine [id number] 08:17:26 Test Item Value Reference Range Interpretation Comments ORGANISM (test code = Escherichia coli ORGANISM) Amikacin (test code = S Amik) Ampicillin (test code = S Amp) Ampicillin/Sulbactam S (test code = Amp/Sul) Cefazolin (test code = S Cefaz) Cefepime (test code = S Cefep) Cefoxitin (test code = S Cefox) Ceftazidime (test code = S Ceftaz) Ceftriaxone (test code = S Ceftri) Ciprofloxacin (test code S = Cipro) ESBL Confirmation Test (test code = ESBL) Gentamicin (test code = S Gent) Levofloxacin (test code S = Levo) Meropenem (test code = S Miriam) Nitrofurantoin (test S code = Nitro) Piperacillin/Tazobactam S (test code = Pip/Aaron) Tobramycin (test code = S Tobra) Trimethoprim/Sulfa (test S code = SXT) Final Report (test code >=100,000 cfu/ml = Final Report) Escherichia coli C Urine Added by GL_SET_CULT_RFLXCT Abdomen and Pelvis w/ [id number] 18:26:16Patient: SHELTON KUMAR Date/Time08/05/2019 18:08 CDTReason for ExamAbdominal painReportCT abdomen and pelvis with contrastHISTORY: Right-sidedabdominal pain, nausea and vomitingCOMPARISON: Gallbladder sonogram dated 06/10/2019, CT abdomen and pelvis dated 05/09/2019TECHNIQUE: Helical tomographic imaging obtained through the abdomen and pelvis post intravenous infusion of 100 mL Omnipaque 300. Dose reduction technique performed per ALARA.FINDINGS: Included lung bases are clear. Mild hepatomegaly identified with underlying steatosis. No focal mass. Gallbladder moderately distended with bilobed architecture, unchanged. No significant wall thickening or radiopaque stone. No ductal dilatation. Pancreas, spleen, adrenal glands, and kidneys appear unremarkable. Small hiatal hernia present. No bowel obstruction. Normal-appearing appendix. Submucosal fat deposition redemonstrated in the colon. No significant pericolonic inflammation. Urinary bladder nondistended. Tubal sterilization noted. No adnexal mass. No free air or fluid. No aneurysm or adenopathy. Body wall and osseous structures reveal no acute pathology.IMPRESSION:1. Hepatomegaly/steatosis.2. Moderately distended gallbladder with chronic appearing bilobed architecture. No radiopaque stone or ductal dilatation.3. Chronic appearing colonic submucosal fat deposition. Although nonspecific, finding has been described in cases of underlying chronic inflammatory bowel disease. Final Dictated by: MD Angelito, Caterinactated DT/TM: 08/05/2019 6:18 pmSigned by: MD Angelito, Donavan (Electronic Signature): 08/05/2019 6:26 pmUrinalysis with Culture, if [id number] 17:30:11 Test Item Value Reference Range Interpretation Comments UA Color (test code = UA Graham Yellow A Color) UA Appear (test code = Turbid Clear A UA Appear) UA pH (test code = UA 8.5 A pH) UA Spec Grav (test code 1.021 SGU 1.005-1.030 = UA Spec Grav) UA Glucose (test code = Negative Negative UA Glucose) UA Bili (test code = UA 2+ Negative A Bili) UA Ketones (test code = Trace Negative A UA Ketones) UA Blood (test code = UA Negative Negative Blood) UA Protein (test code = 2+ Negative A UA Protein) UA Urobilinogen (test 2.0 EU/dL >0.2 A code = UA Urobilinogen) UA Nitrite (test code = Positive Negative A UA Nitrite) UA Leuk Est (test code = 3+ Negative A UA Leuk Est) UA Micro Ind? (test code Indicated Not Indicated A Re sult created by = UA Micro Ind?) rule GL_SET_UA_MICRO _IND Urinalysis [id number] 17:30:11 Test Item Value Reference Range Interpretation Comments UA WBC (test code = UA WBC) >100 /HPF 0-5 A UA RBC (test code = UA RBC) 11-20 /HPF 0-4 A UA Bacteria (test code = UA 4+ /HPF Negative A Bacteria) UA Squam Epithelial (test code = TNTC /LPF N UA Squam Epithelial) UA Mucous (test code = UA Mucous) Moderate None Seen A UA Hyal Cast (test code = UA Hyal 1-6 /LPF 1-6 Cast) Drugs of Abuse Screen [id number] 17:30:11 Test Item Value Reference Range Interpretation Comments Amphetamine Screen Ur Negative Negative (test code = Amphetamine Screen Ur) Barbiturate Screen Ur Negative Negative (test code = Barbiturate Screen Ur) Benzodiazepines Ur Negative Negative (test code = Benzodiazepines Ur) Cocaine Screen Ur Negative Negative (test code = Cocaine Screen Ur) Opiate Screen Ur (test Negative Negative code = Opiate Screen Ur) U PCP Scrn (test code Negative N = U PCP Scrn) Cannabinoid Screen Ur Negative Negative This a ssay provides a (test code = preliminary velvet lytical Cannabinoid Screen Ur) test result intended for medical purpose s only. Confirmation wi ll be sent to a Refer ence Lab only upon addit ional physician reque st.The cutoff levels u sed for this assay are as followsAmphetam ine 1000 ng/mlBarbi tuates 300 ng/mlBenzodiaze pine 300 ng.ml Cocaine 300 ng/mlOpia bradley 300 ng/ mlPCP 25 ng/mlTHC 50 ng/ml Comprehensive Metabolic [id number] 17:29:46 Test Item Value Reference Range Interpretation Comments Sodium Level (test 138 mmol/L 136-145 code = Sodium Level) Potassium Level (test 2.9 mmol/L 3.5-5.1 Result s called to code = Potassium and read ba ck by: Level) Momo,RN 08/05/2019 17:29 :38 CDT/mm Chloride Level (test 96 mmol/L 98-107 L code = Chloride Level) CO2 (test code = CO2) 32 mmol/L 21-32 Anion Gap (test code 10 mmol/L 7-16 = Anion Gap) BUN (test code = BUN) 6 mg/dL 7-18 L Creatinine Level 0.5 mg/dL 0.6-1.0 L (test code = Creatinine Level) Glucose Level (test 113 mg/dL 74-106 H code = Glucose Level) Calcium Level (test 8.5 mg/dL 8.5-10.1 code = Calcium Level) Alk Phos (test code = 197 IntlUnit/L 50-136 H Alk Phos) Bilirubin Total (test 3.4 mg/dL 0.2-1.0 H code = Bilirubin Total) Albumin Level (test 3.4 g/dL 3.4-5.0 code = Albumin Level) Protein Total (test 7.3 g/dL 6.4-8.2 code = Protein Total) ALT (test code = ALT) 181 IntlUnit/L 12-78 H AST (test code = AST) 403 IntlUnit/L 15-37 H Comprehensive Metabolic [id number] 17:29:46 Test Item Value Reference Range Interpretation Comments Sodium Level (test 138 mmol/L 136-145 code = Sodium Level) Potassium Level (test 2.9 mmol/L 3.5-5.1 Result s called to code = Potassium and read ba ck by: Level) AVE Barr 08/05/2019 17:29 :38 CDT/mm Chloride Level (test 96 mmol/L 98-107 L code = Chloride Level) CO2 (test code = CO2) 32 mmol/L 21-32 Anion Gap (test code 10 mmol/L 7-16 = Anion Gap) BUN (test code = BUN) 6 mg/dL 7-18 L Creatinine Level 0.5 mg/dL 0.6-1.0 L (test code = Creatinine Level) Glucose Level (test 113 mg/dL 74-106 H code = Glucose Level) Calcium Level (test 8.5 mg/dL 8.5-10.1 code = Calcium Level) Alk Phos (test code = 197 IntlUnit/L 50-136 H Alk Phos) Bilirubin Total (test 3.4 mg/dL 0.2-1.0 H code = Bilirubin Total) Albumin Level (test 3.4 g/dL 3.4-5.0 code = Albumin Level) Protein Total (test 7.3 g/dL 6.4-8.2 code = Protein Total) ALT (test code = ALT) 181 IntlUnit/L 12-78 H AST (test code = AST) 403 IntlUnit/L 15-37 H eGFR AA (test code = >60 mL/min/1.73 N eGFR AA) m2 Comprehensive Metabolic [id number] 17:29:46 Test Item Value Reference Range Interpretation Comments Sodium Level (test 138 mmol/L 136-145 code = Sodium Level) Potassium Level (test 2.9 mmol/L 3.5-5.1 Result s called to code = Potassium and read ba ck by: Level) AVE Barr 08/05/2019 17:29 :38 CDT/mm Chloride Level (test 96 mmol/L 98-107 L code = Chloride Level) CO2 (test code = CO2) 32 mmol/L 21-32 Anion Gap (test code 10 mmol/L 7-16 = Anion Gap) BUN (test code = BUN) 6 mg/dL 7-18 L Creatinine Level 0.5 mg/dL 0.6-1.0 L (test code = Creatinine Level) Glucose Level (test 113 mg/dL 74-106 H code = Glucose Level) Calcium Level (test 8.5 mg/dL 8.5-10.1 code = Calcium Level) Alk Phos (test code = 197 IntlUnit/L 50-136 H Alk Phos) Bilirubin Total (test 3.4 mg/dL 0.2-1.0 H code = Bilirubin Total) Albumin Level (test 3.4 g/dL 3.4-5.0 code = Albumin Level) Protein Total (test 7.3 g/dL 6.4-8.2 code = Protein Total) ALT (test code = ALT) 181 IntlUnit/L 12-78 H AST (test code = AST) 403 IntlUnit/L 15-37 H eGFR AA (test code = >60 mL/min/1.73 N eGFR AA) m2 eGFR Non-AA (test >60 mL/min/1.73 N code = eGFR Non-AA) m2 [id number] 17:17:13 Test Item Value Reference Range Interpretation Comments Amylase Level (test code = 13 IntlUnit/L 25-115 L Amylase Level) Lipase [id number] 17:17:13 Test Item Value Reference Range Interpretation Comments Lipase Level (test code = 139 IntlUnit/L 73-393 Lipase Level) HCG Qualitative [id number] 16:59:08 Test Item Value Reference Range Interpretation Comments hCG Ur (test code = Negative Negative Test res ults should be hCG Ur) confirmed using a serum sample prior to the perfromance of any critical medica l procedure. Lactic Acid, Plasma (Venous)2019-08-05 16:43:11 Test Item Value Reference Range Interpretation Comments Lactic Acid, Plasma (Venous) (test 1.4 mmol/L 0.4-2.0 code = Lactic Acid, Plasma (Venous)) Prothrombin Time and [id number] 16:36:25 Test Item Value Reference Range Interpretation Comments Prothrombin Time (test code = 13.6 seconds 9.2-12.0 H Prothrombin Time) INR (test code = INR) 1.3 ratio 0.9-1.2 H Partial Thromboplastin [id number] 16:36:25 Test Item Value Reference Range Interpretation Comments Partial Thromboplastin 28.5 seconds 24.0-35.0 APTT Heparin Time (test code = Therapeuti c Range: Partial Thromboplastin 47.9- 80.4 seconds Time) Automated [id number] 15:54:08 Test Item Value Reference Range Interpretation Comments Neutro Auto (test code = Neutro Auto) 71.2 % N Lymph Auto (test code = Lymph Auto) 22.0 % N Merrick Auto (test code = Merrick Auto) 6.2 % N Eos, Auto (test code = Eos, Auto) 0.1 % N Basophil Auto (test code = Basophil 0.5 % N Auto) Neutro Absolute (test code = Neutro 3.7 x10 2.7-7.3 Absolute) Lymph Absolute (test code = Lymph 1.1 x10 0.8-3.5 Absolute) Merrick Absolute (test code = Merrick 0.3 x10 0.3-0.9 Absolute) Eos Absolute (test code = Eos 0.0 x10 0.0-0.3 Absolute) Baso Absolute (test code = Baso 0.0 x10 0.0-0.1 Absolute) Complete Blood Count with [id number] 15:54:07 Test Item Value Reference Range Interpretation Comments WBC (test code = WBC) 5.2 x10 4.8-10.8 RBC (test code = RBC) 4.13 x10 4.20-5.50 L Hgb (test code = Hgb) 13.7 g/dL 12.0-16.0 MCV (test code = MCV) 96.6 fL 80.0-95.0 H Hct (test code = Hct) 39.9 % 35.0-47.0 MCHC (test code = MCHC) 34.4 g/dL 31.0-36.0 RDW (test code = RDW) 16.2 % 11.5-14.5 H MCH (test code = MCH) 33.2 pg 26.0-32.0 H Platelets (test code = 121 x10 140-440 L Platelets) MPV (test code = MPV) 9.6 fL 7.5-11.2 Slide Review (test code Auto N Resu lt created by = Slide Review) GL_SET_SLIDE _REVIEW_A NVO ACUTE HEPATITIS [id number] 14:14:00 Test Item Value Reference Range Interpretation Comments AB HEPATITIS A IGM Negative NEGATIVE Specimen was too hemolyzed (test code = for analysis.No tified HAVMAB) Bj Rose at /29/20 20 AG HEPAT B SURF Negative NEGATIVE Test not per formed (test code = HBSAG) HEPATITIS B CORE Negative NEGATIVE Test not pe rformed ANTIBODY,IGM (test code = HBCMAB) AB HEPATITIS C <0.1 NEGATIVE Test not perf ormedPerformed (test code = At: [id number]) [place], [place] [id number] Kyle L MD Ph:[phone] RESEND PER LASHELLECOMPREHENSIVE METABOLIC [id number] 05:09:00 Test Item Value Reference Range Interpretation Comments SODIUM (test code = 139 mmol/L 136-145 N NA) POTASSIUM (test code = 3.7 mmol/L 3.5-5.1 N K) CHLORIDE (test code = 107.0 mmol/L 98-107 N CL) CARBON DIOXIDE (test 25.0 mmol/L 21-32 N code = CO2) ANION GAP (test code = 10.7 10-20 N GAP) GLUCOSE (test code = 113 mg/dL 74-106 H GLU) BLOOD UREA NITROGEN 7 mg/dL 7-18 N (test code = BUN) GLOMERULAR FILTRATION > 60 mL/min >=60 Estima brando GFR by RATE (test code = GFR) using Modified MDRD formula.Chronic kidney disease is defined as ei er kidney damageor GFR <60 mL/min/1.73 m2 for >3 months. CREATININE (test code 0.40 mg/dL 0.55-1.02 L Note change in = CREAT) reference range due to change in reagent. BUN/CREATININE RATIO 17.5 10-20 N (test code = BUN/CREA) TOTAL PROTEIN (test 6.4 gram/dL 6.4-8.2 N code = PROT) ALBUMIN (test code = 2.2 g/dL 3.4-5.0 L ALB) GLOBULIN (test code = 4.2 gram/dL 2.7-4.2 N GLOB) ALBUMIN/GLOBULIN RATIO 0.5 0.75-1.50 L (test code = A/G) CALCIUM (test code = 8.5 mg/dL 8.5-10.1 N CA) BILIRUBIN TOTAL (test 5.40 mg/dL 0.0-1.0 H code = BILT) SGOT/AST (test code = 136 IUnit/L 15-37 H AST) SGPT/ALT (test code = 52 IUnit/L 12-78 N ALT) ALKALINE PHOSPHATASE 144 IUnit/L 45-117 H Note change in TOTAL (test code = reference range due ALKP) to change in reagent. COMPREHENSIVE METABOLIC [id number] 04:52:00 Test Item Value Reference Range Interpretation Comments SODIUM (test code = NA) 139 mmol/L 136-145 N POTASSIUM (test code = K) 3.7 mmol/L 3.5-5.1 N CHLORIDE (test code = CL) 107.0 mmol/L 98-107 N CARBON DIOXIDE (test code = CO2) mmol/L 21-32 ANION GAP (test code = GAP) 10-20 GLUCOSE (test code = GLU) mg/dL 74-106 BLOOD UREA NITROGEN (test code = mg/dL 7-18 BUN) GLOMERULAR FILTRATION RATE (test mL/min >=60 code = GFR) CREATININE (test code = CREAT) mg/dL 0.55-1.02 BUN/CREATININE RATIO (test code 10-20 = BUN/CREA) TOTAL PROTEIN (test code = PROT) gram/dL 6.4-8.2 ALBUMIN (test code = ALB) g/dL 3.4-5.0 GLOBULIN (test code = GLOB) gram/dL 2.7-4.2 ALBUMIN/GLOBULIN RATIO (test 0.75-1.50 code = A/G) CALCIUM (test code = CA) mg/dL 8.5-10.1 BILIRUBIN TOTAL (test code = mg/dL 0.0-1.0 BILT) SGOT/AST (test code = AST) IUnit/L 15-37 SGPT/ALT (test code = ALT) IUnit/L 12-78 ALKALINE PHOSPHATASE TOTAL (test IUnit/L 45-117 code = ALKP) HEPATIC FUNCTION [id number] 11:14:00 Test Item Value Reference Range Interpretation Comments TOTAL PROTEIN (test 6.2 gram/dL 6.4-8.2 L code = PROT) ALBUMIN (test code = 2.1 g/dL 3.4-5.0 L ALB) GLOBULIN (test code = 4.1 gram/dL 2.7-4.2 N GLOB) ALBUMIN/GLOBULIN RATIO 0.5 0.75-1.50 L (test code = A/G) BILIRUBIN TOTAL (test 6.00 mg/dL 0.0-1.0 H code = BILT) BILIRUBIN DIRECT (test 4.90 mg/dL 0.0-0.20 H code = BILD) SGOT/AST (test code = 133 IUnit/L 15-37 H AST) SGPT/ALT (test code = 46 IUnit/L 12-78 N ALT) ALKALINE PHOSPHATASE 149 IUnit/L 45-117 H Note change in TOTAL (test code = reference range due ALKP) to change in reagent. PROTHROMBIN [id number] 10:58:00 Test Item Value Reference Range Interpretation Comments PROTHROMBIN TIME 16.9 seconds 9.0-14.0 H PATIENT (test code = PTP) INTERNATIONAL NORMAL 1.4 0.8-1.2 H The the rapeutic range RATIO (test code = for oral INR) anticoagulant t herapy formost indicat ions is an internati onal normalized rati o (INR)of between 2.0 and 3.0. The recommended therapeutic INR range for various cli nical situations is l isted below: Clinical Situat ion INR range Pulmonary embol ism treatment (2.0-3.0)Venou s thrombosis treatmentVenous thrombosis prophylaxis (hi gh risk surgery)Prevent ion of systemic emboli sm from: A cute myocardial infa rction Valvula r heart disease Atrial fibrilla tion Mechanical pros thetic heart valves (2.5-3.5) IS PATIENT ON ANTICOAGULANTS? NCOMPREHENSIVE METABOLIC [id number] 07:12:00 Test Item Value Reference Range Interpretation Comments SODIUM (test code = 139 mmol/L 136-145 N NA) POTASSIUM (test code = 3.8 mmol/L 3.5-5.1 N K) CHLORIDE (test code = 108.0 mmol/L 98-107 H CL) CARBON DIOXIDE (test 24.0 mmol/L 21-32 N code = CO2) ANION GAP (test code = 10.8 10-20 N GAP) GLUCOSE (test code = 99 mg/dL 74-106 N GLU) BLOOD UREA NITROGEN 5 mg/dL 7-18 L (test code = BUN) GLOMERULAR FILTRATION > 60 mL/min >=60 Estima brando GFR by RATE (test code = GFR) using Modified MDRD formula.Chronic kidney disease is defined as ei er kidney damageor GFR <60 mL/min/1.73 m2 for >3 months. CREATININE (test code 0.30 mg/dL 0.55-1.02 L Note change in = CREAT) reference range due to change in reagent. BUN/CREATININE RATIO 16.7 10-20 N (test code = BUN/CREA) TOTAL PROTEIN (test 6.2 gram/dL 6.4-8.2 L code = PROT) ALBUMIN (test code = 2.1 g/dL 3.4-5.0 L ALB) GLOBULIN (test code = 4.1 gram/dL 2.7-4.2 N GLOB) ALBUMIN/GLOBULIN RATIO 0.5 0.75-1.50 L (test code = A/G) CALCIUM (test code = 8.2 mg/dL 8.5-10.1 L CA) BILIRUBIN TOTAL (test 7.00 mg/dL 0.0-1.0 H code = BILT) SGOT/AST (test code = 137 IUnit/L 15-37 H AST) SGPT/ALT (test code = 41 IUnit/L 12-78 N ALT) ALKALINE PHOSPHATASE 165 IUnit/L 45-117 H Note change in TOTAL (test code = reference range due ALKP) to change in reagent. 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 [facility] COMPREHENSIVE METABOLIC [id number] 05:57:00 Test Item Value Reference Range Interpretation Comments SODIUM (test code = 139 mmol/L 136-145 N NA) POTASSIUM (test code = 3.7 mmol/L 3.5-5.1 N K) CHLORIDE (test code = 106.0 mmol/L 98-107 N CL) CARBON DIOXIDE (test 25.0 mmol/L 21-32 N code = CO2) ANION GAP (test code = 11.7 10-20 N GAP) GLUCOSE (test code = 101 mg/dL 74-106 N GLU) BLOOD UREA NITROGEN 5 mg/dL 7-18 L (test code = BUN) GLOMERULAR FILTRATION > 60 mL/min >=60 Estima brando GFR by RATE (test code = GFR) using Modified MDRD formula.Chronic kidney disease is defined as eith er kidney damageor GFR <60 mL/min/1.73 m2 for >3 months. CREATININE (test code 0.40 mg/dL 0.55-1.02 L Note change in = CREAT) reference range due to change in reagent. BUN/CREATININE RATIO 12.5 10-20 N (test code = BUN/CREA) TOTAL PROTEIN (test 6.1 gram/dL 6.4-8.2 L code = PROT) ALBUMIN (test code = 2.1 g/dL 3.4-5.0 L ALB) GLOBULIN (test code = 4.0 gram/dL 2.7-4.2 N GLOB) ALBUMIN/GLOBULIN RATIO 0.5 0.75-1.50 L (test code = A/G) CALCIUM (test code = 8.0 mg/dL 8.5-10.1 L CA) BILIRUBIN TOTAL (test 8.20 mg/dL 0.0-1.0 H code = BILT) SGOT/AST (test code = 142 IUnit/L 15-37 H AST) SGPT/ALT (test code = 39 IUnit/L 12-78 N ALT) ALKALINE PHOSPHATASE 166 IUnit/L 45-117 H Note change in TOTAL (test code = reference range due ALKP) to change in reagent. 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 [facility] COMPREHENSIVE METABOLIC [id number] 05:48:00 Test Item Value Reference Range Interpretation Comments SODIUM (test code = NA) 139 mmol/L 136-145 N POTASSIUM (test code = K) 3.7 mmol/L 3.5-5.1 N CHLORIDE (test code = CL) 106.0 mmol/L 98-107 N CARBON DIOXIDE (test code = CO2) mmol/L 21-32 ANION GAP (test code = GAP) 10-20 GLUCOSE (test code = GLU) mg/dL 74-106 BLOOD UREA NITROGEN (test code = mg/dL 7-18 BUN) GLOMERULAR FILTRATION RATE (test mL/min >=60 code = GFR) CREATININE (test code = CREAT) mg/dL 0.55-1.02 BUN/CREATININE RATIO (test code 10-20 = BUN/CREA) TOTAL PROTEIN (test code = PROT) gram/dL 6.4-8.2 ALBUMIN (test code = ALB) g/dL 3.4-5.0 GLOBULIN (test code = GLOB) gram/dL 2.7-4.2 ALBUMIN/GLOBULIN RATIO (test 0.75-1.50 code = A/G) CALCIUM (test code = CA) mg/dL 8.5-10.1 BILIRUBIN TOTAL (test code = mg/dL 0.0-1.0 BILT) SGOT/AST (test code = AST) IUnit/L 15-37 SGPT/ALT (test code = ALT) IUnit/L 12-78 ALKALINE PHOSPHATASE TOTAL (test IUnit/L 45-117 code = ALKP) [id number] 20:57:00 Test Item Value Reference Range Interpretation Comments GLUBED (test code = 123 mg/dL 74-106 H Performe d by certified GLUBED) 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 [facility] [id number] 17:31:00 Test Item Value Reference Range Interpretation Comments GLUBED (test code = 104 mg/dL 74-106 N Performe d by certified GLUBED) 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 [facility] [id number] 11:37:00 Test Item Value Reference Range Interpretation Comments GLUBED (test code = 96 mg/dL 74-106 N Performe d by certified GLUBED) 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 [facility] COMPREHENSIVE METABOLIC [id number] 08:23:00 Test Item Value Reference Range Interpretation Comments SODIUM (test code = 139 mmol/L 136-145 N NA) POTASSIUM (test code = 4.1 mmol/L 3.5-5.1 N K) CHLORIDE (test code = 106.0 mmol/L 98-107 N CL) CARBON DIOXIDE (test 23.0 mmol/L 21-32 N code = CO2) ANION GAP (test code = 14.1 10-20 N GAP) GLUCOSE (test code = 93 mg/dL 74-106 N GLU) BLOOD UREA NITROGEN 4 mg/dL 7-18 L (test code = BUN) GLOMERULAR FILTRATION > 60 mL/min >=60 Estima brando GFR by RATE (test code = GFR) using Modified MDRD formula.Chronic kidney disease is defined as eith er kidney damageor GFR <60 mL/min/1.73 m2 for >3 months. CREATININE (test code 0.40 mg/dL 0.55-1.02 L Note change in = CREAT) reference range due to change in reagent. BUN/CREATININE RATIO 10.0 10-20 N (test code = BUN/CREA) TOTAL PROTEIN (test 5.8 gram/dL 6.4-8.2 L code = PROT) ALBUMIN (test code = 2.2 g/dL 3.4-5.0 L ALB) GLOBULIN (test code = 3.6 gram/dL 2.7-4.2 N GLOB) ALBUMIN/GLOBULIN RATIO 0.6 0.75-1.50 L (test code = A/G) CALCIUM (test code = 7.9 mg/dL 8.5-10.1 L CA) BILIRUBIN TOTAL (test 9.70 mg/dL 0.0-1.0 H code = BILT) SGOT/AST (test code = 145 IUnit/L 15-37 H AST) SGPT/ALT (test code = 38 IUnit/L 12-78 N ALT) ALKALINE PHOSPHATASE 166 IUnit/L 45-117 H Note change in TOTAL (test code = reference range due ALKP) to change in reagent. COMPREHENSIVE METABOLIC [id number] 08:08:00 Test Item Value Reference Range Interpretation Comments SODIUM (test code = NA) 139 mmol/L 136-145 N POTASSIUM (test code = K) 4.1 mmol/L 3.5-5.1 N CHLORIDE (test code = CL) 106.0 mmol/L 98-107 N CARBON DIOXIDE (test code = CO2) mmol/L 21-32 ANION GAP (test code = GAP) 10-20 GLUCOSE (test code = GLU) mg/dL 74-106 BLOOD UREA NITROGEN (test code = mg/dL 7-18 BUN) GLOMERULAR FILTRATION RATE (test mL/min >=60 code = GFR) CREATININE (test code = CREAT) mg/dL 0.55-1.02 BUN/CREATININE RATIO (test code 10-20 = BUN/CREA) TOTAL PROTEIN (test code = PROT) gram/dL 6.4-8.2 ALBUMIN (test code = ALB) g/dL 3.4-5.0 GLOBULIN (test code = GLOB) gram/dL 2.7-4.2 ALBUMIN/GLOBULIN RATIO (test 0.75-1.50 code = A/G) CALCIUM (test code = CA) mg/dL 8.5-10.1 BILIRUBIN TOTAL (test code = mg/dL 0.0-1.0 BILT) SGOT/AST (test code = AST) IUnit/L 15-37 SGPT/ALT (test code = ALT) IUnit/L 12-78 ALKALINE PHOSPHATASE TOTAL (test IUnit/L 45-117 code = ALKP) [id number] 06:25:00 Test Item Value Reference Range Interpretation Comments GLUBED (test code = 100 mg/dL 74-106 N Performe d by certified GLUBED) 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 [facility] [id number] 20:37:00 Test Item Value Reference Range Interpretation Comments GLUBED (test code = 143 mg/dL 74-106 H Performe d by certified GLUBED) 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 [facility] [id number] 16:36:00 Test Item Value Reference Range Interpretation Comments GLUBED (test code = 101 mg/dL 74-106 N Performe d by certified GLUBED) 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 [facility] [id number] 11:46:00 Test Item Value Reference Range Interpretation Comments GLUBED (test code = 96 mg/dL 74-106 N Performe d by certified GLUBED) 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 [facility] [id number] 06:07:00 Test Item Value Reference Range Interpretation Comments GLUBED (test code = 82 mg/dL 74-106 N Performe d by certified GLUBED) 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 [facility] BASIC METABOLIC [id number] 03:58:00 Test Item Value Reference Range Interpretation Comments SODIUM (test code = 139 mmol/L 136-145 N NA) POTASSIUM (test code 3.3 mmol/L 3.5-5.1 L = K) CHLORIDE (test code = 105.0 mmol/L 98-107 N CL) CARBON DIOXIDE (test 27.0 mmol/L 21-32 N code = CO2) ANION GAP (test code 10.3 10-20 N = GAP) GLUCOSE (test code = 91 mg/dL 74-106 N GLU) BLOOD UREA NITROGEN 6 mg/dL 7-18 L (test code = BUN) GLOMERULAR FILTRATION > 60 mL/min >=60 Estima brando GFR by RATE (test code = using Jin fied MDRD GFR) formula.Chronic kidney disease is defined as eith er kidney damageor GFR <60 mL/min/1.73 m2 for >3 months. CREATININE (test code 0.50 mg/dL 0.55-1.02 L Note change in = CREAT) reference range due to change in reagent. BUN/CREATININE RATIO 12.0 10-20 N (test code = BUN/CREA) CALCIUM (test code = 8.0 mg/dL 8.5-10.1 L CA) HEPATIC FUNCTION [id number] 03:58:00 Test Item Value Reference Range Interpretation Comments TOTAL PROTEIN (test 5.7 gram/dL 6.4-8.2 L code = PROT) ALBUMIN (test code = 2.1 g/dL 3.4-5.0 L ALB) GLOBULIN (test code = 3.6 gram/dL 2.7-4.2 N GLOB) ALBUMIN/GLOBULIN RATIO 0.6 0.75-1.50 L (test code = A/G) BILIRUBIN TOTAL (test 9.80 mg/dL 0.0-1.0 H code = BILT) BILIRUBIN DIRECT (test 7.91 mg/dL 0.0-0.20 H code = BILD) SGOT/AST (test code = 116 IUnit/L 15-37 H AST) SGPT/ALT (test code = 32 IUnit/L 12-78 N ALT) ALKALINE PHOSPHATASE 176 IUnit/L 45-117 H Note change in TOTAL (test code = reference range due ALKP) to change in reagent. [id number] 03:58:00 Test Item Value Reference Range Interpretation Comments PHOSPHORUS (test code = PHOS) 1.5 mg/dL 2.5-4.9 L [id number] 03:58:00 Test Item Value Reference Range Interpretation Comments MAGNESIUM (test code = MAG) 1.6 mg/dL 1.8-2.4 L BASIC METABOLIC [id number] 03:43:00 Test Item Value Reference Range Interpretation Comments SODIUM (test code = NA) 139 mmol/L 136-145 N POTASSIUM (test code = K) 3.3 mmol/L 3.5-5.1 L CHLORIDE (test code = CL) 105.0 mmol/L 98-107 N CARBON DIOXIDE (test code = CO2) mmol/L 21-32 ANION GAP (test code = GAP) 10-20 GLUCOSE (test code = GLU) mg/dL 74-106 BLOOD UREA NITROGEN (test code = mg/dL 7-18 BUN) GLOMERULAR FILTRATION RATE (test mL/min >=60 code = GFR) CREATININE (test code = CREAT) mg/dL 0.55-1.02 BUN/CREATININE RATIO (test code 20 = BUN/CREA) CALCIUM (test code = CA) mg/dL 8.5-10.1 HEPATIC FUNCTION [id number] 03:43:00 Test Item Value Reference Range Interpretation Comments TOTAL PROTEIN (test code = PROT) gram/dL 6.4-8.2 ALBUMIN (test code = ALB) g/dL 3.4-5.0 GLOBULIN (test code = GLOB) gram/dL 2.7-4.2 ALBUMIN/GLOBULIN RATIO (test code = 0.75-1.50 A/G) BILIRUBIN TOTAL (test code = BILT) mg/dL 0.0-1.0 BILIRUBIN DIRECT (test code = BILD) mg/dL 0.0-0.20 SGOT/AST (test code = AST) IUnit/L 15-37 SGPT/ALT (test code = ALT) IUnit/L 12-78 ALKALINE PHOSPHATASE TOTAL (test IUnit/L 45-117 code = ALKP) [id number] 03:43:00 Test Item Value Reference Range Interpretation Comments PHOSPHORUS (test code = PHOS) mg/dL 2.5-4.9 [id number] 03:43:00 Test Item Value Reference Range Interpretation Comments MAGNESIUM (test code = MAG) mg/dL 1.8-2.4 BASIC METABOLIC [id number] 03:43:00 Test Item Value Reference Range Interpretation Comments SODIUM (test code = NA) 139 mmol/L 136-145 N POTASSIUM (test code = K) 3.3 mmol/L 3.5-5.1 L CHLORIDE (test code = CL) 105.0 mmol/L 98-107 N CARBON DIOXIDE (test code = CO2) mmol/L 21-32 ANION GAP (test code = GAP) 10-20 GLUCOSE (test code = GLU) mg/dL 74-106 BLOOD UREA NITROGEN (test code = mg/dL 7-18 BUN) GLOMERULAR FILTRATION RATE (test mL/min >=60 code = GFR) CREATININE (test code = CREAT) mg/dL 0.55-1.02 BUN/CREATININE RATIO (test code 1020 = BUN/CREA) CALCIUM (test code = CA) mg/dL 8.5-10.1 HEPATIC FUNCTION [id number] 03:43:00 Test Item Value Reference Range Interpretation Comments TOTAL PROTEIN (test code = PROT) gram/dL 6.4-8.2 ALBUMIN (test code = ALB) g/dL 3.4-5.0 GLOBULIN (test code = GLOB) gram/dL 2.7-4.2 ALBUMIN/GLOBULIN RATIO (test code = 0.75-1.50 A/G) BILIRUBIN TOTAL (test code = BILT) mg/dL 0.0-1.0 BILIRUBIN DIRECT (test code = BILD) mg/dL 0.0-0.20 SGOT/AST (test code = AST) IUnit/L 15-37 SGPT/ALT (test code = ALT) IUnit/L 12-78 ALKALINE PHOSPHATASE TOTAL (test IUnit/L 45-117 code = ALKP) [id number] 03:43:00 Test Item Value Reference Range Interpretation Comments PHOSPHORUS (test code = PHOS) mg/dL 2.5-4.9 [id number] 03:43:00 Test Item Value Reference Range Interpretation Comments MAGNESIUM (test code = MAG) mg/dL 1.8-2.4 [id number] 21:03:00 Test Item Value Reference Range Interpretation Comments GLUBED (test code = 99 mg/dL 74-106 N Performe d by certified GLUBED) 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 [facility] [id number] 16:07:00 Test Item Value Reference Range Interpretation Comments GLUBED (test code = 108 mg/dL 74-106 H Performe d by certified GLUBED) 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 [facility] [id number] 12:45:00 Test Item Value Reference Range Interpretation Comments GLUBED (test code = 97 mg/dL 74-106 N Performe d by certified GLUBED) 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 [facility] [id number] 05:25:00 Test Item Value Reference Range Interpretation Comments GLUBED (test code = 96 mg/dL 74-106 N Performe d by certified GLUBED) 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 [facility] BASIC METABOLIC [id number] 02:06:00 Test Item Value Reference Range Interpretation Comments SODIUM (test code = 139 mmol/L 136-145 N NA) POTASSIUM (test code 3.8 mmol/L 3.5-5.1 N = K) CHLORIDE (test code = 105.0 mmol/L 98-107 N CL) CARBON DIOXIDE (test 27.0 mmol/L 21-32 N code = CO2) ANION GAP (test code 10.8 10-20 N = GAP) GLUCOSE (test code = 117 mg/dL 74-106 H GLU) BLOOD UREA NITROGEN 5 mg/dL 7-18 L (test code = BUN) GLOMERULAR FILTRATION > 60 mL/min >=60 Estima brando GFR by RATE (test code = using Jin fied MDRD GFR) formula.Chronic kidney disease is defined as [facility] er kidney damageor GFR <60 mL/min/1.73 m2 for >3 months. CREATININE (test code 0.50 mg/dL 0.55-1.02 L Note change in = CREAT) reference range due to change in reagent. BUN/CREATININE RATIO 10.0 10-20 N (test code = BUN/CREA) CALCIUM (test code = 7.8 mg/dL 8.5-10.1 L CA) HEPATIC FUNCTION [id number] 02:06:00 Test Item Value Reference Range Interpretation Comments TOTAL PROTEIN (test 5.9 gram/dL 6.4-8.2 L code = PROT) ALBUMIN (test code = 2.1 g/dL 3.4-5.0 L ALB) GLOBULIN (test code = 3.8 gram/dL 2.7-4.2 N GLOB) ALBUMIN/GLOBULIN RATIO 0.6 0.75-1.50 L (test code = A/G) BILIRUBIN TOTAL (test 10.70 mg/dL 0.0-1.0 H code = BILT) BILIRUBIN DIRECT (test 8.62 mg/dL 0.0-0.20 H code = BILD) SGOT/AST (test code = 107 IUnit/L 15-37 H AST) SGPT/ALT (test code = 32 IUnit/L 12-78 N ALT) ALKALINE PHOSPHATASE 173 IUnit/L 45-117 H Note change in TOTAL (test code = reference range due ALKP) to change in reagent. CBC W/AUTO [id number] 02:04:00 Test Item Value Reference Range Interpretation Comments WHITE BLOOD CELL (test code = 5.4 K/mm3 4.5-12.5 N WBC) RED BLOOD CELL (test code = 2.82 mill/mm3 3.7-5.2 L RBC) HEMOGLOBIN (test code = HGB) 10.2 gram/dL 11.5-15.5 L HEMATOCRIT (test code = HCT) 31.1 % 36.0-46.0 L MEAN CELL VOLUME (test code = 110.3 fL 80-98 H MCV) MEAN CELL HGB (test code = MCH) 36.2 picogram 27.0-33.0 H MEAN CELL HGB CONCETRATION 32.8 gram/dL 33.0-36.0 L (test code = MCHC) RED CELL DISTRIBUTION WIDTH 19.5 % 11.6-16.2 H (test code = RDW) RED CELL DISTRIBUTION WIDTH SD 79.1 fL 37.0-51.0 H (test code = RDW-SD) PLATELET COUNT (test code = 225 K/mm3 150-450 N PLT) MEAN PLATELET VOLUME (test code 11.2 fL 6.7-11.0 H = MPV) NEUTROPHIL % (test code = NT%) 68.1 % 39.0-69.0 N IMMATURE GRANULOCYTE % (test 1.3 % 0.0-5.0 N code = IG%) LYMPHOCYTE % (test code = LY%) 20.4 % 25.0-55.0 L MONOCYTE % (test code = MO%) 9.6 % 0.0-10.0 N EOSINOPHIL % (test code = EO%) 0.4 % 0.0-5.0 N BASOPHIL % (test code = BA%) 0.2 % 0.0-1.0 N NUCLEATED RBC % (test code = 0.6 % 0-0 H NRBC%) NEUTROPHIL # (test code = NT#) 3.71 K/mm3 1.8-7.7 N IMMATURE GRANULOCYTE # (test 0.07 x10 3/uL 0-0.03 H code = IG#) LYMPHOCYTE # (test code = LY#) 1.11 K/mm3 1.0-5.0 N MONOCYTE # (test code = MO#) 0.52 K/mm3 0-0.8 N EOSINOPHIL # (test code = EO#) 0.02 K/mm3 0.0-0.5 N BASOPHIL # (test code = BA#) 0.01 K/mm3 0.0-0.2 N NUCLEATED RBC # (test code = 0.03 K/mm3 0.0-0.1 N NRBC#) BASIC METABOLIC [id number] 01:55:00 Test Item Value Reference Range Interpretation Comments SODIUM (test code = NA) 139 mmol/L 136-145 N POTASSIUM (test code = K) 3.8 mmol/L 3.5-5.1 N CHLORIDE (test code = CL) 105.0 mmol/L 98-107 N CARBON DIOXIDE (test code = CO2) mmol/L 21-32 ANION GAP (test code = GAP) 10-20 GLUCOSE (test code = GLU) mg/dL 74-106 BLOOD UREA NITROGEN (test code = mg/dL 7-18 BUN) GLOMERULAR FILTRATION RATE (test mL/min >=60 code = GFR) CREATININE (test code = CREAT) mg/dL 0.55-1.02 BUN/CREATININE RATIO (test code 10-20 = BUN/CREA) CALCIUM (test code = CA) mg/dL 8.5-10.1 HEPATIC FUNCTION [id number] 01:55:00 Test Item Value Reference Range Interpretation Comments TOTAL PROTEIN (test code = PROT) gram/dL 6.4-8.2 ALBUMIN (test code = ALB) g/dL 3.4-5.0 GLOBULIN (test code = GLOB) gram/dL 2.7-4.2 ALBUMIN/GLOBULIN RATIO (test code = 0.75-1.50 A/G) BILIRUBIN TOTAL (test code = BILT) mg/dL 0.0-1.0 BILIRUBIN DIRECT (test code = BILD) mg/dL 0.0-0.20 SGOT/AST (test code = AST) IUnit/L 15-37 SGPT/ALT (test code = ALT) IUnit/L 12-78 ALKALINE PHOSPHATASE TOTAL (test IUnit/L 45-117 code = ALKP) [id number] 20:58:00 Test Item Value Reference Range Interpretation Comments GLUBED (test code = 111 mg/dL 74-106 H Performe d by certified GLUBED) 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 [facility] [id number] 18:08:00 Test Item Value Reference Range Interpretation Comments GLUBED (test code = 96 mg/dL 74-106 N Performe d by certified GLUBED) 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 [facility] [id number] 18:08:00 Test Item Value Reference Range Interpretation Comments GLUBED (test code = 81 mg/dL 74-106 N Performe d by certified GLUBED) 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 [facility] SMEAR PERIPHERAL [id number] 08:05:00 Test Item Value Reference Range Interpretation Comments SMEAR PERIPHERAL BLOOD PATH REV PATH REVIEW Revie wed by (test code = BLDSM) Vanessa Darian 06/17/2019Macro cytic anemia with inc reased anisocytosis, t arget cells,rare nucl eated red blood cells . Mild throbocytopenia . [id number] 06:23:00 Test Item Value Reference Range Interpretation Comments GLUBED (test code = 92 mg/dL 74-106 N Performe d by certified GLUBED) 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 [facility] HEPATIC FUNCTION [id number] 03:03:00 Test Item Value Reference Range Interpretation Comments TOTAL PROTEIN (test 6.0 gram/dL 6.4-8.2 L code = PROT) ALBUMIN (test code = 2.3 g/dL 3.4-5.0 L ALB) GLOBULIN (test code = 3.7 gram/dL 2.7-4.2 N GLOB) ALBUMIN/GLOBULIN RATIO 0.6 0.75-1.50 L (test code = A/G) BILIRUBIN TOTAL (test 10.50 mg/dL 0.0-1.0 H code = BILT) BILIRUBIN DIRECT (test 8.42 mg/dL 0.0-0.20 H code = BILD) SGOT/AST (test code = 99 IUnit/L 15-37 H AST) SGPT/ALT (test code = 32 IUnit/L 12-78 N ALT) ALKALINE PHOSPHATASE 160 IUnit/L 45-117 H Note change in TOTAL (test code = reference range due ALKP) to change in reagent. [id number] 03:03:00 Test Item Value Reference Range Interpretation Comments PHOSPHORUS (test code = PHOS) 1.7 mg/dL 2.5-4.9 L [id number] 17:41:00 Test Item Value Reference Range Interpretation Comments GLUBED (test code = 89 mg/dL 74-106 N Performe d by certified GLUBED) 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 [facility] [id number] 17:40:00 Test Item Value Reference Range Interpretation Comments GLUBED (test code = 80 mg/dL 74-106 N Performe d by certified GLUBED) 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 [facility] [id number] 15:09:00 Test Item Value Reference Range Interpretation Comments HAPTOGLOBIN (test code = 53 mg/dL 33-278 Per formed At: HAPT) [facility] [address] [id number] ra Óscar LOBO Ph:[phone] ANTINUCLEAR ANTIBODIES [id number] 14:08:00 Test Item Value Reference Range Interpretation Comments VELVET SCREEN (test code Negative Negative Perfor med At: [facility] = ANASCR) [address] [id number] Kyle L MD Ph:[phone] AB [id number] 14:08:00 Test Item Value Reference Range Interpretation Comments AB MITOCHONDRIAL (test <20.0 Units 0.0-20.0 code = MITOCHAB) Negative 0.0 - 20.0 Equivocal 20.1 - 24.9 Positive >24.9Mitochondr ial (M2) Antibodies are found in 90-96% ofpatients with primary biliary cirrhosis.Perfo rmed At: [facility] [address] [id number] Cantrell MD Ph:[phone] [id number] 06:14:00 Test Item Value Reference Range Interpretation Comments GLUBED (test code = 91 mg/dL 74-106 N Performe d by certified GLUBED) 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 [facility] BASIC METABOLIC [id number] 02:31:00 Test Item Value Reference Range Interpretation Comments SODIUM (test code = 139 mmol/L 136-145 N NA) POTASSIUM (test code 3.8 mmol/L 3.5-5.1 N = K) CHLORIDE (test code = 104.0 mmol/L 98-107 N CL) CARBON DIOXIDE (test 27.0 mmol/L 21-32 N code = CO2) ANION GAP (test code 11.8 10-20 N = GAP) GLUCOSE (test code = 132 mg/dL 74-106 H GLU) BLOOD UREA NITROGEN 2 mg/dL 7-18 L (test code = BUN) GLOMERULAR FILTRATION > 60 mL/min >=60 Estima brando GFR by RATE (test code = using Jin fied MDRD GFR) formula.Chronic kidney disease is defined as eith er kidney damageor GFR <60 mL/min/1.73 m2 for >3 months. CREATININE (test code 0.50 mg/dL 0.55-1.02 L Note change in = CREAT) reference range due to change in reagent. BUN/CREATININE RATIO 4.1 10-20 L (test code = BUN/CREA) CALCIUM (test code = 8.4 mg/dL 8.5-10.1 L CA) HEPATIC FUNCTION [id number] 02:31:00 Test Item Value Reference Range Interpretation Comments TOTAL PROTEIN (test 6.1 gram/dL 6.4-8.2 L code = PROT) ALBUMIN (test code = 2.5 g/dL 3.4-5.0 L ALB) GLOBULIN (test code = 3.6 gram/dL 2.7-4.2 N GLOB) ALBUMIN/GLOBULIN RATIO 0.7 0.75-1.50 L (test code = A/G) BILIRUBIN TOTAL (test 11.80 mg/dL 0.0-1.0 H code = BILT) BILIRUBIN DIRECT (test 9.25 mg/dL 0.0-0.20 H code = BILD) SGOT/AST (test code = 100 IUnit/L 15-37 H AST) SGPT/ALT (test code = 36 IUnit/L 12-78 N ALT) ALKALINE PHOSPHATASE 169 IUnit/L 45-117 H Note change in TOTAL (test code = reference range due ALKP) to change in reagent. [id number] 02:31:00 Test Item Value Reference Range Interpretation Comments PHOSPHORUS (test code = PHOS) 1.5 mg/dL 2.5-4.9 L BASIC METABOLIC [id number] 02:20:00 Test Item Value Reference Range Interpretation Comments SODIUM (test code = NA) 139 mmol/L 136-145 N POTASSIUM (test code = K) 3.8 mmol/L 3.5-5.1 N CHLORIDE (test code = CL) 104.0 mmol/L 98-107 N CARBON DIOXIDE (test code = CO2) mmol/L 21-32 ANION GAP (test code = GAP) 10-20 GLUCOSE (test code = GLU) mg/dL 74-106 BLOOD UREA NITROGEN (test code = mg/dL 7-18 BUN) GLOMERULAR FILTRATION RATE (test mL/min >=60 code = GFR) CREATININE (test code = CREAT) mg/dL 0.55-1.02 BUN/CREATININE RATIO (test code 10-20 = BUN/CREA) CALCIUM (test code = CA) mg/dL 8.5-10.1 HEPATIC FUNCTION [id number] 02:20:00 Test Item Value Reference Range Interpretation Comments TOTAL PROTEIN (test code = PROT) gram/dL 6.4-8.2 ALBUMIN (test code = ALB) g/dL 3.4-5.0 GLOBULIN (test code = GLOB) gram/dL 2.7-4.2 ALBUMIN/GLOBULIN RATIO (test code = 0.75-1.50 A/G) BILIRUBIN TOTAL (test code = BILT) mg/dL 0.0-1.0 BILIRUBIN DIRECT (test code = BILD) mg/dL 0.0-0.20 SGOT/AST (test code = AST) IUnit/L 15-37 SGPT/ALT (test code = ALT) IUnit/L 12-78 ALKALINE PHOSPHATASE TOTAL (test IUnit/L 45-117 code = ALKP) [id number] 02:20:00 Test Item Value Reference Range Interpretation Comments PHOSPHORUS (test code = PHOS) mg/dL 2.5-4.9 CBC W/AUTO [id number] 02:11:00 Test Item Value Reference Range Interpretation Comments WHITE BLOOD CELL (test code = 3.5 K/mm3 4.5-12.5 L WBC) RED BLOOD CELL (test code = 2.88 mill/mm3 3.7-5.2 L RBC) HEMOGLOBIN (test code = HGB) 10.2 gram/dL 11.5-15.5 L HEMATOCRIT (test code = HCT) 31.8 % 36.0-46.0 L MEAN CELL VOLUME (test code = 110.4 fL 80-98 H MCV) MEAN CELL HGB (test code = MCH) 35.4 picogram 27.0-33.0 H MEAN CELL HGB CONCETRATION 32.1 gram/dL 33.0-36.0 L (test code = MCHC) RED CELL DISTRIBUTION WIDTH 19.8 % 11.6-16.2 H (test code = RDW) RED CELL DISTRIBUTION WIDTH SD 79.2 fL 37.0-51.0 H (test code = RDW-SD) PLATELET COUNT (test code = 166 K/mm3 150-450 N PLT) MEAN PLATELET VOLUME (test code 11.0 fL 6.7-11.0 N = MPV) NEUTROPHIL % (test code = NT%) 64.7 % 39.0-69.0 N IMMATURE GRANULOCYTE % (test 1.4 % 0.0-5.0 N code = IG%) LYMPHOCYTE % (test code = LY%) 21.5 % 25.0-55.0 L MONOCYTE % (test code = MO%) 12.1 % 0.0-10.0 H EOSINOPHIL % (test code = EO%) 0.0 % 0.0-5.0 N BASOPHIL % (test code = BA%) 0.3 % 0.0-1.0 N NUCLEATED RBC % (test code = 0.8 % 0-0 H NRBC%) NEUTROPHIL # (test code = NT#) 2.29 K/mm3 1.8-7.7 N IMMATURE GRANULOCYTE # (test 0.05 x10 3/uL 0-0.03 H code = IG#) LYMPHOCYTE # (test code = LY#) 0.76 K/mm3 1.0-5.0 L MONOCYTE # (test code = MO#) 0.43 K/mm3 0-0.8 N EOSINOPHIL # (test code = EO#) 0.00 K/mm3 0.0-0.5 N BASOPHIL # (test code = BA#) 0.01 K/mm3 0.0-0.2 N NUCLEATED RBC # (test code = 0.03 K/mm3 0.0-0.1 N NRBC#) MANUAL DIFF REQUIRED (test code NO = MDIFF) [id number] 21:40:00 Test Item Value Reference Range Interpretation Comments GLUBED (test code = 118 mg/dL 74-106 H Performe d by certified GLUBED) 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7-5.2 L = RBC) HEMOGLOBIN (test code = 8.8 gram/dL 11.5-15.5 L HGB) HEMATOCRIT (test code = 28.0 % 36.0-46.0 L HCT) MEAN CELL VOLUME (test 111.6 fL 80-98 H code = MCV) MEAN CELL HGB (test code 35.1 picogram 27.0-33.0 H = MCH) MEAN CELL HGB 31.4 gram/dL 33.0-36.0 L CONCETRATION (test code = MCHC) RED CELL DISTRIBUTION 20.8 % 11.6-16.2 H WIDTH (test code = RDW) RED CELL DISTRIBUTION 84.1 fL 37.0-51.0 H WIDTH SD (test code = RDW-SD) PLATELET COUNT (test code 146 K/mm3 150-450 L = PLT) MEAN PLATELET VOLUME 11.1 fL 6.7-11.0 H (test code = MPV) NEUTROPHIL % (test code = 60.8 % 39.0-69.0 N NT%) IMMATURE GRANULOCYTE % 1.1 % 0.0-5.0 N (test code = IG%) LYMPHOCYTE % (test code = 21.2 % 25.0-55.0 L LY%) MONOCYTE % (test code = 16.4 % 0.0-10.0 H MO%) EOSINOPHIL % (test code = 0.0 % 0.0-5.0 N EO%) BASOPHIL % (test code = 0.5 % 0.0-1.0 N BA%) NUCLEATED RBC % (test 0.0 % 0-0 N code = NRBC%) NEUTROPHIL # (test code = 2.66 K/mm3 1.8-7.7 N NT#) IMMATURE GRANULOCYTE # 0.05 x10 3/uL 0-0.03 H (test code = IG#) LYMPHOCYTE # (test code = 0.93 K/mm3 1.0-5.0 L LY#) MONOCYTE # (test code = 0.72 K/mm3 0-0.8 N MO#) EOSINOPHIL # (test code = 0.00 K/mm3 0.0-0.5 N EO#) BASOPHIL # (test code = 0.02 K/mm3 0.0-0.2 N BA#) NUCLEATED RBC # (test 0.00 K/mm3 0.0-0.1 N code = NRBC#) MANUAL DIFF REQUIRED NO, ONLY SCAN NEEDED (test code = MDIFF) DIFFERENTIAL [id number] 06:32:00 Test Item Value Reference Range Interpretation Comments STAIN ACCEPTABILITY (test STAIN ACCEPTABLE code = STN ACCEPTABLE) POLYCHROMASIA (test code = 2+ POLC) HYPOCHROMIA (test code = 1+ HYPO) POIKILOCYTOSIS (test code 2+ = POIK) ANISOCYTOSIS (test code = 3+ ANISO) MACROCYTOSIS (test code = 2+ MACR) TARGET CELLS (test code = 1+ TGT) TEAR DROP CELLS (test code 1+ = TEAR) MORPHOLOGY COMMENT (test TEST NOT PERFORMED code = MOC) PLATELET ESTIMATE (test SLIGHTLY DECREASED code = PLTEST) PLATELET MORPHOLOGY (test NORMAL code = PLTMORPH) HEPATIC FUNCTION [id number] 06:21:00 Test Item Value Reference Range Interpretation Comments TOTAL PROTEIN (test 5.5 gram/dL 6.4-8.2 L code = PROT) ALBUMIN (test code = 2.4 g/dL 3.4-5.0 L ALB) GLOBULIN (test code = 3.1 gram/dL 2.7-4.2 N GLOB) ALBUMIN/GLOBULIN RATIO 0.8 0.75-1.50 N (test code = A/G) BILIRUBIN TOTAL (test 11.90 mg/dL 0.0-1.0 H code = BILT) BILIRUBIN DIRECT (test 9.47 mg/dL 0.0-0.20 H code = BILD) SGOT/AST (test code = 100 IUnit/L 15-37 H AST) SGPT/ALT (test code = 39 IUnit/L 12-78 N ALT) ALKALINE PHOSPHATASE 167 IUnit/L 45-117 H Note change in TOTAL (test code = reference range due ALKP) to change in reagent. [id number] 06:20:00 Test Item Value Reference Range Interpretation Comments PHOSPHORUS (test code = PHOS) 1.6 mg/dL 2.5-4.9 L BASIC METABOLIC [id number] 06:10:00 Test Item Value Reference Range Interpretation Comments SODIUM (test code = 137 mmol/L 136-145 N NA) POTASSIUM (test code 3.7 mmol/L 3.5-5.1 N = K) CHLORIDE (test code = 105.0 mmol/L 98-107 N CL) CARBON DIOXIDE (test 26.0 mmol/L 21-32 N code = CO2) ANION GAP (test code 9.7 10-20 L = GAP) GLUCOSE (test code = 91 mg/dL 74-106 N GLU) BLOOD UREA NITROGEN 2 mg/dL 7-18 L (test code = BUN) GLOMERULAR FILTRATION > 60 mL/min >=60 Estima brando GFR by RATE (test code = using Jin fied MDRD GFR) formula.Chronic kidney disease is defined as [facility] kidney damageor GFR <60 mL/min/1.73 m2 for >3 months. CREATININE (test code 0.40 mg/dL 0.55-1.02 L Note change in = CREAT) reference range due to change in reagent. BUN/CREATININE RATIO 4.7 10-20 L (test code = BUN/CREA) CALCIUM (test code = 7.9 mg/dL 8.5-10.1 L CA) [id number] 06:04:00 Test Item Value Reference Range Interpretation Comments GLUBED (test code = 79 mg/dL 74-106 N Performe d by certified GLUBED) 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 [facility] CBC W/AUTO [id number] 05:42:00 Test Item Value Reference Range Interpretation Comments WHITE BLOOD CELL (test 4.4 K/mm3 4.5-12.5 L code = WBC) RED BLOOD CELL (test code 2.51 mill/mm3 3.7-5.2 L = RBC) HEMOGLOBIN (test code = 8.8 gram/dL 11.5-15.5 L HGB) HEMATOCRIT (test code = 28.0 % 36.0-46.0 L HCT) MEAN CELL VOLUME (test 111.6 fL 80-98 H code = MCV) MEAN CELL HGB (test code 35.1 picogram 27.0-33.0 H = MCH) MEAN CELL HGB 31.4 gram/dL 33.0-36.0 L CONCETRATION (test code = MCHC) RED CELL DISTRIBUTION 20.8 % 11.6-16.2 H WIDTH (test code = RDW) RED CELL DISTRIBUTION 84.1 fL 37.0-51.0 H WIDTH SD (test code = RDW-SD) PLATELET COUNT (test code 146 K/mm3 150-450 L = PLT) MEAN PLATELET VOLUME 11.1 fL 6.7-11.0 H (test code = MPV) NEUTROPHIL % (test code = 60.8 % 39.0-69.0 N NT%) IMMATURE GRANULOCYTE % 1.1 % 0.0-5.0 N (test code = IG%) LYMPHOCYTE % (test code = 21.2 % 25.0-55.0 L LY%) MONOCYTE % (test code = 16.4 % 0.0-10.0 H MO%) EOSINOPHIL % (test code = 0.0 % 0.0-5.0 N EO%) BASOPHIL % (test code = 0.5 % 0.0-1.0 N BA%) NUCLEATED RBC % (test 0.0 % 0-0 N code = NRBC%) NEUTROPHIL # (test code = 2.66 K/mm3 1.8-7.7 N NT#) IMMATURE GRANULOCYTE # 0.05 x10 3/uL 0-0.03 H (test code = IG#) LYMPHOCYTE # (test code = 0.93 K/mm3 1.0-5.0 L LY#) MONOCYTE # (test code = 0.72 K/mm3 0-0.8 N MO#) EOSINOPHIL # (test code = 0.00 K/mm3 0.0-0.5 N EO#) BASOPHIL # (test code = 0.02 K/mm3 0.0-0.2 N BA#) NUCLEATED RBC # (test 0.00 K/mm3 0.0-0.1 N code = NRBC#) MANUAL DIFF REQUIRED NO, ONLY SCAN NEEDED (test code = MDIFF) DIFFERENTIAL [id number] 05:42:00 Test Item Value Reference Range Interpretation Comments STAIN ACCEPTABILITY (test code = STN ACCEPTABLE) CABOT RINGS (test code = CAB) MORPHOLOGY COMMENT (test code = MOC) PLATELET ESTIMATE (test code = PLTEST) PLATELET MORPHOLOGY (test code = PLTMORPH) CBC W/AUTO [id number] 05:42:00 Test Item Value Reference Range Interpretation Comments WHITE BLOOD CELL (test 4.4 K/mm3 4.5-12.5 L code = WBC) RED BLOOD CELL (test code 2.51 mill/mm3 3.7-5.2 L = RBC) HEMOGLOBIN (test code = 8.8 gram/dL 11.5-15.5 L HGB) HEMATOCRIT (test code = 28.0 % 36.0-46.0 L HCT) MEAN CELL VOLUME (test 111.6 fL 80-98 H code = MCV) MEAN CELL HGB (test code 35.1 picogram 27.0-33.0 H = MCH) MEAN CELL HGB 31.4 gram/dL 33.0-36.0 L CONCETRATION (test code = MCHC) RED CELL DISTRIBUTION 20.8 % 11.6-16.2 H WIDTH (test code = RDW) RED CELL DISTRIBUTION 84.1 fL 37.0-51.0 H WIDTH SD (test code = RDW-SD) PLATELET COUNT (test code 146 K/mm3 150-450 L = PLT) MEAN PLATELET VOLUME 11.1 fL 6.7-11.0 H (test code = MPV) NEUTROPHIL % (test code = 60.8 % 39.0-69.0 N NT%) IMMATURE GRANULOCYTE % 1.1 % 0.0-5.0 N (test code = IG%) LYMPHOCYTE % (test code = 21.2 % 25.0-55.0 L LY%) MONOCYTE % (test code = 16.4 % 0.0-10.0 H MO%) EOSINOPHIL % (test code = 0.0 % 0.0-5.0 N EO%) BASOPHIL % (test code = 0.5 % 0.0-1.0 N BA%) NUCLEATED RBC % (test 0.0 % 0-0 N code = NRBC%) NEUTROPHIL # (test code = 2.66 K/mm3 1.8-7.7 N NT#) IMMATURE GRANULOCYTE # 0.05 x10 3/uL 0-0.03 H (test code = IG#) LYMPHOCYTE # (test code = 0.93 K/mm3 1.0-5.0 L LY#) MONOCYTE # (test code = 0.72 K/mm3 0-0.8 N MO#) EOSINOPHIL # (test code = 0.00 K/mm3 0.0-0.5 N EO#) BASOPHIL # (test code = 0.02 K/mm3 0.0-0.2 N BA#) NUCLEATED RBC # (test 0.00 K/mm3 0.0-0.1 N code = NRBC#) MANUAL DIFF REQUIRED NO, ONLY SCAN NEEDED (test code = MDIFF) DIFFERENTIAL [id number] 05:42:00 Test Item Value Reference Range Interpretation Comments STAIN ACCEPTABILITY (test code = STN ACCEPTABLE) MORPHOLOGY COMMENT (test code = MOC) PLATELET ESTIMATE (test code = PLTEST) PLATELET MORPHOLOGY (test code = PLTMORPH) CBC W/AUTO [id number] 05:41:00 Test Item Value Reference Range Interpretation Comments WHITE BLOOD CELL (test 4.4 K/mm3 4.5-12.5 L code = WBC) RED BLOOD CELL (test code 2.51 mill/mm3 3.7-5.2 L = RBC) HEMOGLOBIN (test code = 8.8 gram/dL 11.5-15.5 L HGB) HEMATOCRIT (test code = 28.0 % 36.0-46.0 L HCT) MEAN CELL VOLUME (test 111.6 fL 80-98 H code = MCV) MEAN CELL HGB (test code 35.1 picogram 27.0-33.0 H = MCH) MEAN CELL HGB 31.4 gram/dL 33.0-36.0 L CONCETRATION (test code = MCHC) RED CELL DISTRIBUTION 20.8 % 11.6-16.2 H WIDTH (test code = RDW) RED CELL DISTRIBUTION 84.1 fL 37.0-51.0 H WIDTH SD (test code = RDW-SD) PLATELET COUNT (test code 146 K/mm3 150-450 L = PLT) MEAN PLATELET VOLUME 11.1 fL 6.7-11.0 H (test code = MPV) NEUTROPHIL % (test code = 60.8 % 39.0-69.0 N NT%) IMMATURE GRANULOCYTE % 1.1 % 0.0-5.0 N (test code = IG%) LYMPHOCYTE % (test code = 21.2 % 25.0-55.0 L LY%) MONOCYTE % (test code = 16.4 % 0.0-10.0 H MO%) EOSINOPHIL % (test code = 0.0 % 0.0-5.0 N EO%) BASOPHIL % (test code = 0.5 % 0.0-1.0 N BA%) NUCLEATED RBC % (test 0.0 % 0-0 N code = NRBC%) NEUTROPHIL # (test code = 2.66 K/mm3 1.8-7.7 N NT#) IMMATURE GRANULOCYTE # 0.05 x10 3/uL 0-0.03 H (test code = IG#) LYMPHOCYTE # (test code = 0.93 K/mm3 1.0-5.0 L LY#) MONOCYTE # (test code = 0.72 K/mm3 0-0.8 N MO#) EOSINOPHIL # (test code = 0.00 K/mm3 0.0-0.5 N EO#) BASOPHIL # (test code = 0.02 K/mm3 0.0-0.2 N BA#) NUCLEATED RBC # (test 0.00 K/mm3 0.0-0.1 N code = NRBC#) MANUAL DIFF REQUIRED NO, ONLY SCAN NEEDED (test code = MDIFF) DIFFERENTIAL [id number] 05:41:00 Test Item Value Reference Range Interpretation Comments STAIN ACCEPTABILITY (test code = STN ACCEPTABLE) CABOT RINGS (test code = CAB) MORPHOLOGY COMMENT (test code = MOC) PLATELET ESTIMATE (test code = PLTEST) PLATELET MORPHOLOGY (test code = PLTMORPH) CBC W/AUTO [id number] 05:41:00 Test Item Value Reference Range Interpretation Comments WHITE BLOOD CELL (test 4.4 K/mm3 4.5-12.5 L code = WBC) RED BLOOD CELL (test code 2.51 mill/mm3 3.7-5.2 L = RBC) HEMOGLOBIN (test code = 8.8 gram/dL 11.5-15.5 L HGB) HEMATOCRIT (test code = 28.0 % 36.0-46.0 L HCT) MEAN CELL VOLUME (test 111.6 fL 80-98 H code = MCV) MEAN CELL HGB (test code 35.1 picogram 27.0-33.0 H = MCH) MEAN CELL HGB 31.4 gram/dL 33.0-36.0 L CONCETRATION (test code = MCHC) RED CELL DISTRIBUTION 20.8 % 11.6-16.2 H WIDTH (test code = RDW) RED CELL DISTRIBUTION 84.1 fL 37.0-51.0 H WIDTH SD (test code = RDW-SD) PLATELET COUNT (test code 146 K/mm3 150-450 L = PLT) MEAN PLATELET VOLUME 11.1 fL 6.7-11.0 H (test code = MPV) NEUTROPHIL % (test code = 60.8 % 39.0-69.0 N NT%) IMMATURE GRANULOCYTE % 1.1 % 0.0-5.0 N (test code = IG%) LYMPHOCYTE % (test code = 21.2 % 25.0-55.0 L LY%) MONOCYTE % (test code = 16.4 % 0.0-10.0 H MO%) EOSINOPHIL % (test code = 0.0 % 0.0-5.0 N EO%) BASOPHIL % (test code = 0.5 % 0.0-1.0 N BA%) NUCLEATED RBC % (test 0.0 % 0-0 N code = NRBC%) NEUTROPHIL # (test code = 2.66 K/mm3 1.8-7.7 N NT#) IMMATURE GRANULOCYTE # 0.05 x10 3/uL 0-0.03 H (test code = IG#) LYMPHOCYTE # (test code = 0.93 K/mm3 1.0-5.0 L LY#) MONOCYTE # (test code = 0.72 K/mm3 0-0.8 N MO#) EOSINOPHIL # (test code = 0.00 K/mm3 0.0-0.5 N EO#) BASOPHIL # (test code = 0.02 K/mm3 0.0-0.2 N BA#) NUCLEATED RBC # (test 0.00 K/mm3 0.0-0.1 N code = NRBC#) MANUAL DIFF REQUIRED NO, ONLY SCAN NEEDED (test code = MDIFF) DIFFERENTIAL [id number] 05:41:00 Test Item Value Reference Range Interpretation Comments STAIN ACCEPTABILITY (test code = STN ACCEPTABLE) CABOT RINGS (test code = CAB) MORPHOLOGY COMMENT (test code = MOC) PLATELET ESTIMATE (test code = PLTEST) PLATELET MORPHOLOGY (test code = PLTMORPH) - US ABDOMEN [id number] 22:52:00 [facility] 1985 Age/S: 33 / F Abner Rosas Unit #: [id number] Loc: [place] [address] Phys: Ginger Aguila MD Acct: [id number] Dis Date: Status: ADM IN PHONE #: [phone] Exam Date: 06/15/20192227 FAX #: [phone] Reason: abdominal pain, distension EXAMS: CPT CODE: [id number] US ABDOMEN LTD [address] CLINICAL HISTORY: abdominal pain, distension TECHNIQUE: Static grayscale images from limited sonographic survey of the abdomen for detection of ascites. COMPARISON: None IMPRESSION: No sonographic evidence of intraperitoneal free fluid. LOCATION: [facility] at 2252 Reported and signed by: Jasmine Lama D.O. CC: Ginger Aguila MD Technologist: ELI LEVI Trnscb Date/Time: 06/15/2019 (457) [email or web address] Orig Print D/T: S: 06/15/2019 (4626) Probe: PAGE 1 Signed [id number] 21:02:00 Test Item Value Reference Range Interpretation Comments GLUBED (test code = 100 mg/dL 74-106 N Performe d by certified GLUBED) 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 [facility] PROTHROMBIN [id number] 18:07:00 Test Item Value Reference Range Interpretation Comments PROTHROMBIN TIME 27.9 seconds 9.0-14.0 H PATIENT (test code = PTP) INTERNATIONAL NORMAL 2.4 0.8-1.2 H The the rapeutic range RATIO (test code = for oral INR) anticoagulant t herapy formost indicat ions is an internati onal normalized rati o (INR)of between 2.0 and 3.0. The recommended therapeutic INR range for various cli nical situations is l isted below: Clinical Situat ion INR range Pulmonary embol ism treatment (2.0-3.0)Venou s thrombosis treatmentVenous thrombosis prophylaxis (hi gh risk surgery)Prevent ion of systemic emboli sm from: A cute myocardial infa rction Valvula r heart disease Atrial fibrilla tion Mechanical pros thetic heart valves (2.5-3.5) THROMBOPLASTIN TIME [id number] 18:07:00 Test Item Value Reference Range Interpretation Comments THROMBOPLASTIN TIME PARTIAL 41.1 seconds 25.0-36.5 H (test code = PTT) [id number] 18:07:00 Test Item Value Reference Range Interpretation Comments FIBRINOGEN (test code = FIB) 160 mg/dL 200-400 L FIBRIN SPLIT [id number] 18:07:00 Test Item Value Reference Range Interpretation Comments FIBRIN SPLIT PRODUCT <5 ug/mL <5 Perfor med At: BN (test code = FSP) [facility] [address] [place], [place] [id number] kiki Cantrell MD Ph:[phone] [id number] 18:07:00 Test Item Value Reference Range Interpretation Comments D-DIMER (test 1469.00 0-500 HH Results called to [id number] code = DDIMER) ng/mLFEU by V.LAB.LT 0 06/12/19 1752Critical re sults verified and re ad back by Nurse? [facility] Cut-off value for D-Dim er is 500 ng/mL FEU. Comm ent: The [employer] D-Dim er assay is intended for use asan aid in the diag nosis of venous thromboe mbolism (VTE)[deep vein thrombosis (DVT ) or pulmonary embol ism (PE)].The measu rement of D-Dimer should not be used as an aid inthe diagnosis of VT E, in patient with: -Therapeutic do se anticoagulant t herapy for >24 hours -Fib rinolytic therapy within previous 7 days -Trauma o r surgery within previous 4 weeks -Disseminated malignancies - Aortic aneurysm -Seps is, severe infections, pne umonia, severe skin i nfections -Liver cirrhosi s - ANTITHROMBIN III (ATIII)2019-06-15 18:07:00 Test Item Value Reference Range Interpretation Comments ANTITHROMBIN III (ATIII) 35 % 75-135 L V erified by repeat (test code = AT3) analysis Performed At: [facility] [id number] ra Óscar LOBO Ph:[phone] Blood [id number] 18:01:37No growth at 5 days.Blood [id number] 18:01:37No growth at 5 days.[id number] 17:52:00 Test Item Value Reference Range Interpretation Comments GLUBED (test code = 87 mg/dL 74-106 N Performe d by certified GLUBED) 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 [facility] [id number] 12:50:00 Test Item Value Reference Range Interpretation Comments GLUBED (test code = 76 mg/dL 74-106 N Performe d by certified GLUBED) 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 [facility] ANTINUCLEAR ANTIBODIES [id number] 10:09:00 Test Item Value Reference Range Interpretation Comments VELVET SCREEN (test code Negative Negative Perfor med At: [facility] = ANASCR) [address] [place], [place] [id number] Vitor Hatfield MD Ph:[phone] AB [id number] 10:09:00 Test Item Value Reference Range Interpretation Comments AB MITOCHONDRIAL (test code = MITOCHAB) EIA <1.0 PROTHROMBIN [id number] 08:10:00 Test Item Value Reference Range Interpretation Comments PROTHROMBIN TIME 27.9 seconds 9.0-14.0 H PATIENT (test code = PTP) INTERNATIONAL NORMAL 2.4 0.8-1.2 H The the rapeutic range RATIO (test code = for oral INR) anticoagulant t herapy formost indicat ions is an internati onal normalized rati o (INR)of between 2.0 and 3.0. The recommended therapeutic INR range for various cli nical situations is l isted below: Clinical Situat ion INR range Pulmonary embol ism treatment (2.0-3.0)Venou s thrombosis treatmentVenous thrombosis prophylaxis (hi gh risk surgery)Prevent ion of systemic emboli sm from: A cute myocardial infa rction Valvula r heart disease Atrial fibrilla tion Mechanical pros thetic heart valves (2.5-3.5) THROMBOPLASTIN TIME [id number] 08:10:00 Test Item Value Reference Range Interpretation Comments THROMBOPLASTIN TIME PARTIAL 41.1 seconds 25.0-36.5 H (test code = PTT) [id number] 08:10:00 Test Item Value Reference Range Interpretation Comments FIBRINOGEN (test code = FIB) 160 mg/dL 200-400 L FIBRIN SPLIT [id number] 08:10:00 Test Item Value Reference Range Interpretation Comments FIBRIN SPLIT PRODUCT (test code = mcg/mL <5 FSP) [id number] 08:10:00 Test Item Value Reference Range Interpretation Comments D-DIMER (test 1469.00 0-500 HH Results called to [id number] code = DDIMER) ng/mLFEU by V.LAB.LT 0 06/12/19 1752Critical re sults verified and re ad back by Nurse? [facility] Cut-off value for D-Dim er is 500 ng/mL FEU. Comm ent: The [employer] D-Dim er assay is intended for use asan aid in the diag nosis of venous thromboe mbolism (VTE)[deep vein thrombosis (DVT ) or pulmonary embol ism (PE)].The measu rement of D-Dimer should not be used as an aid inthe diagnosis of VT E, in patient with: -Therapeutic do se anticoagulant t herapy for >24 hours -Fib rinolytic therapy within previous 7 days -Trauma o r surgery within previous 4 weeks -Disseminated malignancies - Aortic aneurysm -Seps is, severe infections, pne umonia, severe skin i nfections -Liver cirrhosi s - ANTITHROMBIN III (ATIII)2019-06-15 08:10:00 Test Item Value Reference Range Interpretation Comments ANTITHROMBIN III (ATIII) 35 % 75-135 L V erified by repeat (test code = AT3) analysis Performed At: [facility] [id number] ra Óscar LOBO Ph:[phone] [id number] 06:03:00 Test Item Value Reference Range Interpretation Comments GLUBED (test code = 78 mg/dL 74-106 N Performe d by certified GLUBED) 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 [facility] CBC W/AUTO [id number] 03:38:00 Test Item Value Reference Range Interpretation Comments WHITE BLOOD CELL (test 6.4 K/mm3 4.5-12.5 N code = WBC) RED BLOOD CELL (test code 2.50 mill/mm3 3.7-5.2 L = RBC) HEMOGLOBIN (test code = 8.9 gram/dL 11.5-15.5 L HGB) HEMATOCRIT (test code = 27.2 % 36.0-46.0 L HCT) MEAN CELL VOLUME (test 108.8 fL 80-98 H code = MCV) MEAN CELL HGB (test code 35.6 picogram 27.0-33.0 H = MCH) MEAN CELL HGB 32.7 gram/dL 33.0-36.0 L CONCETRATION (test code = MCHC) RED CELL DISTRIBUTION 20.9 % 11.6-16.2 H WIDTH (test code = RDW) RED CELL DISTRIBUTION 78.3 fL 37.0-51.0 H WIDTH SD (test code = RDW-SD) PLATELET COUNT (test code 147 K/mm3 150-450 L = PLT) MEAN PLATELET VOLUME 10.7 fL 6.7-11.0 N (test code = MPV) NEUTROPHIL % (test code = 59.4 % 39.0-69.0 N NT%) IMMATURE GRANULOCYTE % 0.9 % 0.0-5.0 N (test code = IG%) LYMPHOCYTE % (test code = 25.4 % 25.0-55.0 N LY%) MONOCYTE % (test code = 12.9 % 0.0-10.0 H MO%) EOSINOPHIL % (test code = 1.1 % 0.0-5.0 N EO%) BASOPHIL % (test code = 0.3 % 0.0-1.0 N BA%) NUCLEATED RBC % (test 1.1 % 0-0 H code = NRBC%) NEUTROPHIL # (test code = 3.81 K/mm3 1.8-7.7 N NT#) IMMATURE GRANULOCYTE # 0.06 x10 3/uL 0-0.03 H (test code = IG#) LYMPHOCYTE # (test code = 1.63 K/mm3 1.0-5.0 N LY#) MONOCYTE # (test code = 0.83 K/mm3 0-0.8 H MO#) EOSINOPHIL # (test code = 0.07 K/mm3 0.0-0.5 N EO#) BASOPHIL # (test code = 0.02 K/mm3 0.0-0.2 N BA#) NUCLEATED RBC # (test 0.07 K/mm3 0.0-0.1 N code = NRBC#) MANUAL DIFF REQUIRED NO, ONLY SCAN NEEDED (test code = MDIFF) DIFFERENTIAL [id number] 03:38:00 Test Item Value Reference Range Interpretation Comments STAIN ACCEPTABILITY (test STAIN ACCEPTABLE code = STN ACCEPTABLE) POLYCHROMASIA (test code = 2+ POLC) ANISOCYTOSIS (test code = 3+ ANISO) MACROCYTOSIS (test code = 3+ MACR) TARGET CELLS (test code = 2+ TGT) PLATELET ESTIMATE (test code ADEQUATE = PLTEST) PLATELET MORPHOLOGY (test NORMAL code = PLTMORPH) BASIC METABOLIC [id number] 03:36:00 Test Item Value Reference Range Interpretation Comments SODIUM (test code = 141 mmol/L 136-145 N NA) POTASSIUM (test code 3.8 mmol/L 3.5-5.1 N = K) CHLORIDE (test code = 108.0 mmol/L 98-107 H CL) CARBON DIOXIDE (test 27.0 mmol/L 21-32 N code = CO2) ANION GAP (test code 9.8 10-20 L = GAP) GLUCOSE (test code = 87 mg/dL 74-106 N GLU) BLOOD UREA NITROGEN 2 mg/dL 7-18 L (test code = BUN) GLOMERULAR FILTRATION > 60 mL/min >=60 Estima brando GFR by RATE (test code = using Ijn fied MDRD GFR) formula.Chronic kidney disease is defined as eith er kidney damageor GFR <60 mL/min/1.73 m2 for >3 months. CREATININE (test code 0.60 mg/dL 0.55-1.02 N Note change in = CREAT) reference range due to change in reagent. BUN/CREATININE RATIO 3.6 10-20 L (test code = BUN/CREA) CALCIUM (test code = 7.4 mg/dL 8.5-10.1 L CA) HEPATIC FUNCTION [id number] 03:36:00 Test Item Value Reference Range Interpretation Comments TOTAL PROTEIN (test 5.3 gram/dL 6.4-8.2 L code = PROT) ALBUMIN (test code = 1.7 g/dL 3.4-5.0 L ALB) GLOBULIN (test code = 3.6 gram/dL 2.7-4.2 N GLOB) ALBUMIN/GLOBULIN RATIO 0.5 0.75-1.50 L (test code = A/G) BILIRUBIN TOTAL (test 11.40 mg/dL 0.0-1.0 H code = BILT) BILIRUBIN DIRECT (test 8.89 mg/dL 0.0-0.20 H code = BILD) SGOT/AST (test code = 114 IUnit/L 15-37 H AST) SGPT/ALT (test code = 48 IUnit/L 12-78 N ALT) ALKALINE PHOSPHATASE 176 IUnit/L 45-117 H Note change in TOTAL (test code = reference range due ALKP) to change in reagent. [id number] 03:36:00 Test Item Value Reference Range Interpretation Comments PHOSPHORUS (test code = PHOS) 1.0 mg/dL 2.5-4.9 L [id number] 03:36:00 Test Item Value Reference Range Interpretation Comments MAGNESIUM (test code = MAG) 2.0 mg/dL 1.8-2.4 N BASIC METABOLIC [id number] 03:25:00 Test Item Value Reference Range Interpretation Comments SODIUM (test code = NA) 141 mmol/L 136-145 N POTASSIUM (test code = K) 3.8 mmol/L 3.5-5.1 N CHLORIDE (test code = CL) 108.0 mmol/L 98-107 H CARBON DIOXIDE (test code = CO2) mmol/L 21-32 ANION GAP (test code = GAP) 10-20 GLUCOSE (test code = GLU) mg/dL 74-106 BLOOD UREA NITROGEN (test code = mg/dL 7-18 BUN) GLOMERULAR FILTRATION RATE (test mL/min >=60 code = GFR) CREATININE (test code = CREAT) mg/dL 0.55-1.02 BUN/CREATININE RATIO (test code 10-20 = BUN/CREA) CALCIUM (test code = CA) mg/dL 8.5-10.1 HEPATIC FUNCTION [id number] 03:25:00 Test Item Value Reference Range Interpretation Comments TOTAL PROTEIN (test code = PROT) gram/dL 6.4-8.2 ALBUMIN (test code = ALB) g/dL 3.4-5.0 GLOBULIN (test code = GLOB) gram/dL 2.7-4.2 ALBUMIN/GLOBULIN RATIO (test code = 0.75-1.50 A/G) BILIRUBIN TOTAL (test code = BILT) mg/dL 0.0-1.0 BILIRUBIN DIRECT (test code = BILD) mg/dL 0.0-0.20 SGOT/AST (test code = AST) IUnit/L 15-37 SGPT/ALT (test code = ALT) IUnit/L 12-78 ALKALINE PHOSPHATASE TOTAL (test IUnit/L 45-117 code = ALKP) [id number] 03:25:00 Test Item Value Reference Range Interpretation Comments PHOSPHORUS (test code = PHOS) mg/dL 2.5-4.9 [id number] 03:25:00 Test Item Value Reference Range Interpretation Comments MAGNESIUM (test code = MAG) mg/dL 1.8-2.4 CBC W/AUTO [id number] 02:57:00 Test Item Value Reference Range Interpretation Comments WHITE BLOOD CELL (test 6.4 K/mm3 4.5-12.5 N code = WBC) RED BLOOD CELL (test code 2.50 mill/mm3 3.7-5.2 L = RBC) HEMOGLOBIN (test code = 8.9 gram/dL 11.5-15.5 L HGB) HEMATOCRIT (test code = 27.2 % 36.0-46.0 L HCT) MEAN CELL VOLUME (test 108.8 fL 80-98 H code = MCV) MEAN CELL HGB (test code 35.6 picogram 27.0-33.0 H = MCH) MEAN CELL HGB 32.7 gram/dL 33.0-36.0 L CONCETRATION (test code = MCHC) RED CELL DISTRIBUTION 20.9 % 11.6-16.2 H WIDTH (test code = RDW) RED CELL DISTRIBUTION 78.3 fL 37.0-51.0 H WIDTH SD (test code = RDW-SD) PLATELET COUNT (test code 147 K/mm3 150-450 L = PLT) MEAN PLATELET VOLUME 10.7 fL 6.7-11.0 N (test code = MPV) NEUTROPHIL % (test code = 59.4 % 39.0-69.0 N NT%) IMMATURE GRANULOCYTE % 0.9 % 0.0-5.0 N (test code = IG%) LYMPHOCYTE % (test code = 25.4 % 25.0-55.0 N LY%) MONOCYTE % (test code = 12.9 % 0.0-10.0 H MO%) EOSINOPHIL % (test code = 1.1 % 0.0-5.0 N EO%) BASOPHIL % (test code = 0.3 % 0.0-1.0 N BA%) NUCLEATED RBC % (test 1.1 % 0-0 H code = NRBC%) NEUTROPHIL # (test code = 3.81 K/mm3 1.8-7.7 N NT#) IMMATURE GRANULOCYTE # 0.06 x10 3/uL 0-0.03 H (test code = IG#) LYMPHOCYTE # (test code = 1.63 K/mm3 1.0-5.0 N LY#) MONOCYTE # (test code = 0.83 K/mm3 0-0.8 H MO#) EOSINOPHIL # (test code = 0.07 K/mm3 0.0-0.5 N EO#) BASOPHIL # (test code = 0.02 K/mm3 0.0-0.2 N BA#) NUCLEATED RBC # (test 0.07 K/mm3 0.0-0.1 N code = NRBC#) MANUAL DIFF REQUIRED NO, ONLY SCAN NEEDED (test code = MDIFF) DIFFERENTIAL [id number] 02:57:00 Test Item Value Reference Range Interpretation Comments STAIN ACCEPTABILITY (test code = STN ACCEPTABLE) CABOT RINGS (test code = CAB) MORPHOLOGY COMMENT (test code = MOC) PLATELET ESTIMATE (test code = PLTEST) PLATELET MORPHOLOGY (test code = PLTMORPH) CBC W/AUTO [id number] 02:57:00 Test Item Value Reference Range Interpretation Comments WHITE BLOOD CELL (test 6.4 K/mm3 4.5-12.5 N code = WBC) RED BLOOD CELL (test code 2.50 mill/mm3 3.7-5.2 L = RBC) HEMOGLOBIN (test code = 8.9 gram/dL 11.5-15.5 L HGB) HEMATOCRIT (test code = 27.2 % 36.0-46.0 L HCT) MEAN CELL VOLUME (test 108.8 fL 80-98 H code = MCV) MEAN CELL HGB (test code 35.6 picogram 27.0-33.0 H = MCH) MEAN CELL HGB 32.7 gram/dL 33.0-36.0 L CONCETRATION (test code = MCHC) RED CELL DISTRIBUTION 20.9 % 11.6-16.2 H WIDTH (test code = RDW) RED CELL DISTRIBUTION 78.3 fL 37.0-51.0 H WIDTH SD (test code = RDW-SD) PLATELET COUNT (test code 147 K/mm3 150-450 L = PLT) MEAN PLATELET VOLUME 10.7 fL 6.7-11.0 N (test code = MPV) NEUTROPHIL % (test code = 59.4 % 39.0-69.0 N NT%) IMMATURE GRANULOCYTE % 0.9 % 0.0-5.0 N (test code = IG%) LYMPHOCYTE % (test code = 25.4 % 25.0-55.0 N LY%) MONOCYTE % (test code = 12.9 % 0.0-10.0 H MO%) EOSINOPHIL % (test code = 1.1 % 0.0-5.0 N EO%) BASOPHIL % (test code = 0.3 % 0.0-1.0 N BA%) NUCLEATED RBC % (test 1.1 % 0-0 H code = NRBC%) NEUTROPHIL # (test code = 3.81 K/mm3 1.8-7.7 N NT#) IMMATURE GRANULOCYTE # 0.06 x10 3/uL 0-0.03 H (test code = IG#) LYMPHOCYTE # (test code = 1.63 K/mm3 1.0-5.0 N LY#) MONOCYTE # (test code = 0.83 K/mm3 0-0.8 H MO#) EOSINOPHIL # (test code = 0.07 K/mm3 0.0-0.5 N EO#) BASOPHIL # (test code = 0.02 K/mm3 0.0-0.2 N BA#) NUCLEATED RBC # (test 0.07 K/mm3 0.0-0.1 N code = NRBC#) MANUAL DIFF REQUIRED NO, ONLY SCAN NEEDED (test code = MDIFF) DIFFERENTIAL [id number] 02:57:00 Test Item Value Reference Range Interpretation Comments STAIN ACCEPTABILITY (test code = STN ACCEPTABLE) CABOT RINGS (test code = CAB) MORPHOLOGY COMMENT (test code = MOC) PLATELET ESTIMATE (test code = PLTEST) PLATELET MORPHOLOGY (test code = PLTMORPH) CBC W/AUTO [id number] 02:57:00 Test Item Value Reference Range Interpretation Comments WHITE BLOOD CELL (test 6.4 K/mm3 4.5-12.5 N code = WBC) RED BLOOD CELL (test code 2.50 mill/mm3 3.7-5.2 L = RBC) HEMOGLOBIN (test code = 8.9 gram/dL 11.5-15.5 L HGB) HEMATOCRIT (test code = 27.2 % 36.0-46.0 L HCT) MEAN CELL VOLUME (test 108.8 fL 80-98 H code = MCV) MEAN CELL HGB (test code 35.6 picogram 27.0-33.0 H = MCH) MEAN CELL HGB 32.7 gram/dL 33.0-36.0 L CONCETRATION (test code = MCHC) RED CELL DISTRIBUTION 20.9 % 11.6-16.2 H WIDTH (test code = RDW) RED CELL DISTRIBUTION 78.3 fL 37.0-51.0 H WIDTH SD (test code = RDW-SD) PLATELET COUNT (test code 147 K/mm3 150-450 L = PLT) MEAN PLATELET VOLUME 10.7 fL 6.7-11.0 N (test code = MPV) NEUTROPHIL % (test code = 59.4 % 39.0-69.0 N NT%) IMMATURE GRANULOCYTE % 0.9 % 0.0-5.0 N (test code = IG%) LYMPHOCYTE % (test code = 25.4 % 25.0-55.0 N LY%) MONOCYTE % (test code = 12.9 % 0.0-10.0 H MO%) EOSINOPHIL % (test code = 1.1 % 0.0-5.0 N EO%) BASOPHIL % (test code = 0.3 % 0.0-1.0 N BA%) NUCLEATED RBC % (test 1.1 % 0-0 H code = NRBC%) NEUTROPHIL # (test code = 3.81 K/mm3 1.8-7.7 N NT#) IMMATURE GRANULOCYTE # 0.06 x10 3/uL 0-0.03 H (test code = IG#) LYMPHOCYTE # (test code = 1.63 K/mm3 1.0-5.0 N LY#) MONOCYTE # (test code = 0.83 K/mm3 0-0.8 H MO#) EOSINOPHIL # (test code = 0.07 K/mm3 0.0-0.5 N EO#) BASOPHIL # (test code = 0.02 K/mm3 0.0-0.2 N BA#) NUCLEATED RBC # (test 0.07 K/mm3 0.0-0.1 N code = NRBC#) MANUAL DIFF REQUIRED NO, ONLY SCAN NEEDED (test code = MDIFF) DIFFERENTIAL [id number] 02:57:00 Test Item Value Reference Range Interpretation Comments STAIN ACCEPTABILITY (test code = STN ACCEPTABLE) MORPHOLOGY COMMENT (test code = MOC) PLATELET ESTIMATE (test code = PLTEST) PLATELET MORPHOLOGY (test code = PLTMORPH) CBC W/AUTO [id number] 02:57:00 Test Item Value Reference Range Interpretation Comments WHITE BLOOD CELL (test 6.4 K/mm3 4.5-12.5 N code = WBC) RED BLOOD CELL (test code 2.50 mill/mm3 3.7-5.2 L = RBC) HEMOGLOBIN (test code = 8.9 gram/dL 11.5-15.5 L HGB) HEMATOCRIT (test code = 27.2 % 36.0-46.0 L HCT) MEAN CELL VOLUME (test 108.8 fL 80-98 H code = MCV) MEAN CELL HGB (test code 35.6 picogram 27.0-33.0 H = MCH) MEAN CELL HGB 32.7 gram/dL 33.0-36.0 L CONCETRATION (test code = MCHC) RED CELL DISTRIBUTION 20.9 % 11.6-16.2 H WIDTH (test code = RDW) RED CELL DISTRIBUTION 78.3 fL 37.0-51.0 H WIDTH SD (test code = RDW-SD) PLATELET COUNT (test code 147 K/mm3 150-450 L = PLT) MEAN PLATELET VOLUME 10.7 fL 6.7-11.0 N (test code = MPV) NEUTROPHIL % (test code = 59.4 % 39.0-69.0 N NT%) IMMATURE GRANULOCYTE % 0.9 % 0.0-5.0 N (test code = IG%) LYMPHOCYTE % (test code = 25.4 % 25.0-55.0 N LY%) MONOCYTE % (test code = 12.9 % 0.0-10.0 H MO%) EOSINOPHIL % (test code = 1.1 % 0.0-5.0 N EO%) BASOPHIL % (test code = 0.3 % 0.0-1.0 N BA%) NUCLEATED RBC % (test 1.1 % 0-0 H code = NRBC%) NEUTROPHIL # (test code = 3.81 K/mm3 1.8-7.7 N NT#) IMMATURE GRANULOCYTE # 0.06 x10 3/uL 0-0.03 H (test code = IG#) LYMPHOCYTE # (test code = 1.63 K/mm3 1.0-5.0 N LY#) MONOCYTE # (test code = 0.83 K/mm3 0-0.8 H MO#) EOSINOPHIL # (test code = 0.07 K/mm3 0.0-0.5 N EO#) BASOPHIL # (test code = 0.02 K/mm3 0.0-0.2 N BA#) NUCLEATED RBC # (test 0.07 K/mm3 0.0-0.1 N code = NRBC#) MANUAL DIFF REQUIRED NO, ONLY SCAN NEEDED (test code = MDIFF) DIFFERENTIAL [id number] 02:57:00 Test Item Value Reference Range Interpretation Comments STAIN ACCEPTABILITY (test code = STN ACCEPTABLE) CABOT RINGS (test code = CAB) MORPHOLOGY COMMENT (test code = MOC) PLATELET ESTIMATE (test code = PLTEST) PLATELET MORPHOLOGY (test code = PLTMORPH) [id number] 21:33:00 Test Item Value Reference Range Interpretation Comments GLUBED (test code = 104 mg/dL 74-106 N Performe d by certified GLUBED) 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 [facility] [id number] 17:16:00 Test Item Value Reference Range Interpretation Comments GLUBED (test code = 124 mg/dL 74-106 H Performe d by certified GLUBED) 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 [facility] [id number] 11:55:00 Test Item Value Reference Range Interpretation Comments GLUBED (test code = 95 mg/dL 74-106 N Performe d by certified GLUBED) 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 [facility] LACTIC [id number] 10:56:00 Test Item Value Reference Range Interpretation Comments LACTIC ACID (test 2.2 mmol/L 0.4-1.9 HH Results ca lled to code = LACT) SHELTON [id number] 1by V.LAB.OA 1056Critical re sults verified and re ad back by Nurse? Y LACTIC [id number] 06:48:00 Test Item Value Reference Range Interpretation Comments LACTIC ACID (test 2.7 mmol/L 0.4-1.9 HH Results ca lled to code = LACT) [id number] by NATANAEL BEJARANO 06/14/19 0648Cr itical results verifie d and read back by Rachel rse? Y [id number] 06:30:00 Test Item Value Reference Range Interpretation Comments GLUBED (test code = 107 mg/dL 74-106 H Performe d by certified GLUBED) 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 [facility] [id number] 05:13:00 Test Item Value Reference Range Interpretation Comments PHOSPHORUS (test code = PHOS) 1.0 mg/dL 2.5-4.9 L [id number] 05:13:00 Test Item Value Reference Range Interpretation Comments MAGNESIUM (test code = MAG) 1.5 mg/dL 1.8-2.4 L [id number] 05:07:00 Test Item Value Reference Range Interpretation Comments PHOSPHORUS (test code = PHOS) mg/dL 2.5-4.9 [id number] 05:07:00 Test Item Value Reference Range Interpretation Comments MAGNESIUM (test code = MAG) 1.5 mg/dL 1.8-2.4 L LACTIC [id number] 04:32:00 Test Item Value Reference Range Interpretation Comments LACTIC ACID (test 3.5 mmol/L 0.4-1.9 HH Results ca lled to code = LACT) [id number] by NATANAEL MacarioKN2 06/14/19 0432Cr itical results verifie d and read back by Nu rse? Y BASIC METABOLIC [id number] 03:36:00 Test Item Value Reference Range Interpretation Comments SODIUM (test code = 140 mmol/L 136-145 N NA) POTASSIUM (test code 3.0 mmol/L 3.5-5.1 L = K) CHLORIDE (test code = 106.0 mmol/L 98-107 N CL) CARBON DIOXIDE (test 23.0 mmol/L 21-32 N code = CO2) ANION GAP (test code 14.0 10-20 N = GAP) GLUCOSE (test code = 88 mg/dL 74-106 N GLU) BLOOD UREA NITROGEN < 1 mg/dL 7-18 L (test code = BUN) GLOMERULAR FILTRATION > 60 mL/min >=60 Estima brando GFR by RATE (test code = using Jin fied MDRD GFR) formula.Chronic kidney disease is defined as eith er kidney damageor GFR <60 mL/min/1.73 m2 for >3 months. CREATININE (test code 0.50 mg/dL 0.55-1.02 L Note change in = CREAT) reference range due to change in reagent. BUN/CREATININE RATIO 2.0 10-20 L (test code = BUN/CREA) CALCIUM (test code = 6.8 mg/dL 8.5-10.1 L CA) HEPATIC FUNCTION [id number] 03:36:00 Test Item Value Reference Range Interpretation Comments TOTAL PROTEIN (test 5.2 gram/dL 6.4-8.2 L code = PROT) ALBUMIN (test code = 1.9 g/dL 3.4-5.0 L ALB) GLOBULIN (test code = 3.3 gram/dL 2.7-4.2 N GLOB) ALBUMIN/GLOBULIN RATIO 0.6 0.75-1.50 L (test code = A/G) BILIRUBIN TOTAL (test 13.00 mg/dL 0.0-1.0 H code = BILT) BILIRUBIN DIRECT (test 10.34 mg/dL 0.0-0.20 H code = BILD) SGOT/AST (test code = 129 IUnit/L 15-37 H AST) SGPT/ALT (test code = 57 IUnit/L 12-78 N ALT) ALKALINE PHOSPHATASE 181 IUnit/L 45-117 H Note change in TOTAL (test code = reference range due ALKP) to change in reagent. [id number] 03:36:00 Test Item Value Reference Range Interpretation Comments MAGNESIUM (test code = MAG) 1.4 mg/dL 1.8-2.4 L CALCIUM [id number] 03:36:00 Test Item Value Reference Range Interpretation Comments CALCIUM IONIZED (test code = IZZY) 1.00 mmol/L 1.12-1.32 L LACTIC [id number] 03:22:00 Test Item Value Reference Range Interpretation Comments LACTIC ACID (test 4.3 mmol/L 0.4-1.9 HH Results ca lled to code = LACT) [id number] by NATANAEL MacarioJP1 06/14/19 0322Cr itical results verifie d and read back by Rachel schaefer? YES BASIC METABOLIC [id number] 02:58:00 Test Item Value Reference Range Interpretation Comments SODIUM (test code = 140 mmol/L 136-145 N NA) POTASSIUM (test code 3.0 mmol/L 3.5-5.1 L = K) CHLORIDE (test code = 106.0 mmol/L 98-107 N CL) CARBON DIOXIDE (test 23.0 mmol/L 21-32 N code = CO2) ANION GAP (test code 14.0 10-20 N = GAP) GLUCOSE (test code = 88 mg/dL 74-106 N GLU) BLOOD UREA NITROGEN < 1 mg/dL 7-18 L (test code = BUN) GLOMERULAR FILTRATION > 60 mL/min >=60 Estima brando GFR by RATE (test code = using Jin fied MDRD GFR) formula.Chronic kidney disease is defined as eith er kidney damageor GFR <60 mL/min/1.73 m2 for >3 months. CREATININE (test code 0.50 mg/dL 0.55-1.02 L Note change in = CREAT) reference range due to change in reagent. BUN/CREATININE RATIO 2.0 10-20 L (test code = BUN/CREA) CALCIUM (test code = 6.8 mg/dL 8.5-10.1 L CA) HEPATIC FUNCTION [id number] 02:58:00 Test Item Value Reference Range Interpretation Comments TOTAL PROTEIN (test 5.2 gram/dL 6.4-8.2 L code = PROT) ALBUMIN (test code = 1.9 g/dL 3.4-5.0 L ALB) GLOBULIN (test code = 3.3 gram/dL 2.7-4.2 N GLOB) ALBUMIN/GLOBULIN RATIO 0.6 0.75-1.50 L (test code = A/G) BILIRUBIN TOTAL (test 13.00 mg/dL 0.0-1.0 H code = BILT) BILIRUBIN DIRECT (test 10.34 mg/dL 0.0-0.20 H code = BILD) SGOT/AST (test code = 129 IUnit/L 15-37 H AST) SGPT/ALT (test code = 57 IUnit/L 12-78 N ALT) ALKALINE PHOSPHATASE 181 IUnit/L 45-117 H Note change in TOTAL (test code = reference range due ALKP) to change in reagent. [id number] 02:58:00 Test Item Value Reference Range Interpretation Comments MAGNESIUM (test code = MAG) 1.4 mg/dL 1.8-2.4 L CALCIUM [id number] 02:58:00 Test Item Value Reference Range Interpretation Comments CALCIUM IONIZED (test code = IZZY) mmol/L 1.12-1.32 CBC W/AUTO [id number] 02:07:00 Test Item Value Reference Range Interpretation Comments WHITE BLOOD CELL (test code = 4.3 K/mm3 4.5-12.5 L WBC) RED BLOOD CELL (test code = 2.46 mill/mm3 3.7-5.2 L RBC) HEMOGLOBIN (test code = HGB) 8.7 gram/dL 11.5-15.5 L HEMATOCRIT (test code = HCT) 26.4 % 36.0-46.0 L MEAN CELL VOLUME (test code = 107.3 fL 80-98 H MCV) MEAN CELL HGB (test code = MCH) 35.4 picogram 27.0-33.0 H MEAN CELL HGB CONCETRATION 33.0 gram/dL 33.0-36.0 N (test code = MCHC) RED CELL DISTRIBUTION WIDTH 19.6 % 11.6-16.2 H (test code = RDW) RED CELL DISTRIBUTION WIDTH SD 72.5 fL 37.0-51.0 H (test code = RDW-SD) PLATELET COUNT (test code = 122 K/mm3 150-450 L PLT) MEAN PLATELET VOLUME (test code 10.7 fL 6.7-11.0 N = MPV) NEUTROPHIL % (test code = NT%) 55.6 % 39.0-69.0 N IMMATURE GRANULOCYTE % (test 1.4 % 0.0-5.0 N code = IG%) LYMPHOCYTE % (test code = LY%) 21.3 % 25.0-55.0 L MONOCYTE % (test code = MO%) 17.8 % 0.0-10.0 H EOSINOPHIL % (test code = EO%) 2.3 % 0.0-5.0 N BASOPHIL % (test code = BA%) 1.6 % 0.0-1.0 H NUCLEATED RBC % (test code = 1.9 % 0-0 H NRBC%) NEUTROPHIL # (test code = NT#) 2.37 K/mm3 1.8-7.7 N IMMATURE GRANULOCYTE # (test 0.06 x10 3/uL 0-0.03 H code = IG#) LYMPHOCYTE # (test code = LY#) 0.91 K/mm3 1.0-5.0 L MONOCYTE # (test code = MO#) 0.76 K/mm3 0-0.8 N EOSINOPHIL # (test code = EO#) 0.10 K/mm3 0.0-0.5 N BASOPHIL # (test code = BA#) 0.07 K/mm3 0.0-0.2 N NUCLEATED RBC # (test code = 0.08 K/mm3 0.0-0.1 N NRBC#) COMPREHENSIVE METABOLIC [id number] 01:09:00 Test Item Value Reference Range Interpretation Comments SODIUM (test code = 140 mmol/L 136-145 N NA) POTASSIUM (test code = 3.1 mmol/L 3.5-5.1 L K) CHLORIDE (test code = 105.0 mmol/L 98-107 N CL) CARBON DIOXIDE (test 23.0 mmol/L 21-32 N code = CO2) ANION GAP (test code = 15.1 10-20 N GAP) GLUCOSE (test code = 89 mg/dL 74-106 N GLU) BLOOD UREA NITROGEN 2 mg/dL 7-18 L (test code = BUN) GLOMERULAR FILTRATION > 60 mL/min >=60 Estima brando GFR by RATE (test code = GFR) using Modified MDRD formula.Chronic kidney disease is defined as [facility] er kidney damageor GFR <60 mL/min/1.73 m2 for >3 months. CREATININE (test code 0.60 mg/dL 0.55-1.02 N Note change in = CREAT) reference range due to change in reagent. BUN/CREATININE RATIO 3.3 10-20 L (test code = BUN/CREA) TOTAL PROTEIN (test 5.8 gram/dL 6.4-8.2 L code = PROT) ALBUMIN (test code = 2.2 g/dL 3.4-5.0 L ALB) GLOBULIN (test code = 3.6 gram/dL 2.7-4.2 N GLOB) ALBUMIN/GLOBULIN RATIO 0.6 0.75-1.50 L (test code = A/G) CALCIUM (test code = 7.1 mg/dL 8.5-10.1 L CA) BILIRUBIN TOTAL (test 15.00 mg/dL 0.0-1.0 H code = BILT) SGOT/AST (test code = 149 IUnit/L 15-37 H AST) SGPT/ALT (test code = 64 IUnit/L 12-78 N ALT) ALKALINE PHOSPHATASE 206 IUnit/L 45-117 H Note change in TOTAL (test code = reference range due ALKP) to change in reagent. COMPREHENSIVE METABOLIC [id number] 01:03:00 Test Item Value Reference Range Interpretation Comments SODIUM (test code = NA) 140 mmol/L 136-145 N POTASSIUM (test code = K) 3.1 mmol/L 3.5-5.1 L CHLORIDE (test code = CL) 105.0 mmol/L 98-107 N CARBON DIOXIDE (test code = CO2) mmol/L 21-32 ANION GAP (test code = GAP) 10-20 GLUCOSE (test code = GLU) mg/dL 74-106 BLOOD UREA NITROGEN (test code = mg/dL 7-18 BUN) GLOMERULAR FILTRATION RATE (test mL/min >=60 code = GFR) CREATININE (test code = CREAT) mg/dL 0.55-1.02 BUN/CREATININE RATIO (test code 10-20 = BUN/CREA) TOTAL PROTEIN (test code = PROT) gram/dL 6.4-8.2 ALBUMIN (test code = ALB) g/dL 3.4-5.0 GLOBULIN (test code = GLOB) gram/dL 2.7-4.2 ALBUMIN/GLOBULIN RATIO (test 0.75-1.50 code = A/G) CALCIUM (test code = CA) mg/dL 8.5-10.1 BILIRUBIN TOTAL (test code = mg/dL 0.0-1.0 BILT) SGOT/AST (test code = AST) IUnit/L 15-37 SGPT/ALT (test code = ALT) IUnit/L 12-78 ALKALINE PHOSPHATASE TOTAL (test IUnit/L 45-117 code = ALKP) ARTERIAL BLOOD [id number] 22:46:00 Test Item Value Reference Range Interpretation Comments ARTERIAL BLOOD GAS PH 7.51 7.35-7.45 H (test code = PHA) ARTERIAL BLOOD GAS PCO2 28.7 mm Hg 35-45 L (test code = PCO2A) ARTERIAL BLOOD GAS PO2 92.8 mmHg 80-100 N (test code = PO2A) BICARBONATE TOTAL HCO3 22.5 mmol/L 23.0-27.0 L (test code = HCO3) BASE EXCESS (test code = 0.2 mmol/L -3.0-5.0 N BASSAM) ABG O2 SATURATION (test 96.8 % 90.0-98.0 N code = SATA) ABG TYPE (test code = Arterial TYPEA) FIO2 (test code = FIO2A) 32.0 ABG SITE (test code = Rt RADIAL SITEA) ARTERY MODIFIED ALLENS (test Yes CHECK PERFORMED code = MODALL) SODIUM (test code = 135.6 mEq/L 135-148 N NA/ABG) POTASSIUM (test code = 3.1 mEq/L 3.5-4.5 L K/ABG) CHLORIDE (test code = 104 mEq/L 98-106 N CL/ABG) GLUCOSE (test code = 99 mg/dL 74-99 N GLU/ABG) HEMATOCRIT (test code = 30 % 35-47 L HCT/ABG) IONIZED CALCIUM (test 0.95 mmol/L 1.1-1.37 L code = CAIABG) TOTAL HGB (test code = 10.2 gram/dL 11.5-15.5 L THB) HGB O2 SAT (test code = 95.8 % 94.00-98.00 N HBOSAT) CARBOXYHEMOGLOBIN (test 0.3 %totalHg 0.5-1.5 LL Resu lts called code = HOHGBT) to and read back by Ethan 22:45 - 06/13/2019; by GENARO METHEMOGLOBIN (test code 0.7 % 0.0-1.50 N = METHGB) O2 CONTENT (test code = 13.9 % vol 18.0-22.0 L O2CT) LACTIC [id number] 22:17:00 Test Item Value Reference Range Interpretation Comments LACTIC ACID (test 5.1 mmol/L 0.4-1.9 HH Results ca lled to code = LACT) [id number] by NATANAEL MacarioQD 06/13/19 2215Cr itical results verifie d and read back by Rachel schaefer? YES PROTHROMBIN [id number] 21:56:00 Test Item Value Reference Range Interpretation Comments PROTHROMBIN TIME 30.7 seconds 9.0-14.0 H PATIENT (test code = PTP) INTERNATIONAL NORMAL 2.6 0.8-1.2 H The the rapeutic range RATIO (test code = for oral INR) anticoagulant t herapy formost indicat ions is an internati onal normalized rati o (INR)of between 2.0 and 3.0. The recommended therapeutic INR range for various cli nical situations is l isted below: Clinical Situat ion INR range Pulmonary embol ism treatment (2.0-3.0)Venou s thrombosis treatmentVenous thrombosis prophylaxis (hi gh risk surgery)Prevent ion of systemic emboli sm from: A cute myocardial infa rction Valvula r heart disease Atrial fibrilla tion Mechanical pros thetic heart valves (2.5-3.5) IS PATIENT ON ANTICOAGULANTS? NTHROMBOPLASTIN TIME [id number] 21:56:00 Test Item Value Reference Range Interpretation Comments THROMBOPLASTIN TIME PARTIAL 40.9 seconds 25.0-36.5 H (test code = PTT) IS PATIENT ON ANTICOAGULANTS? [id number] 21:56:00 Test Item Value Reference Range Interpretation Comments FIBRINOGEN (test code = FIB) 170 mg/dL 200-400 L IS PATIENT ON ANTICOAGULANTS? [id number] 20:24:00 Test Item Value Reference Range Interpretation Comments GLUBED (test code = 84 mg/dL 74-106 N Performe d by certified GLUBED) 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 [facility] LACTIC [id number] 19:42:00 Test Item Value Reference Range Interpretation Comments LACTIC ACID (test 4.3 mmol/L 0.4-1.9 HH Results ca lled to code = LACT) [id number] by NATANAEL MacarioLT 06/13/19 1942Cr itical results verifie d and read back by Nu rse? Y [id number] 19:28:00 Test Item Value Reference Range Interpretation Comments LIPASE (test code = LIP) 285 U/L 73.0-393.0 N [id number] 19:28:00 Test Item Value Reference Range Interpretation Comments AMMONIA (test code = AMM) 30 umol/L 11-32 N [id number] 18:30:00 Test Item Value Reference Range Interpretation Comments GLUBED (test code = 91 mg/dL 74-106 N Performe d by certified GLUBED) 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 [facility] - CT HEAD/BRAIN W/O [id number] 18:04:00 Name: SHELTON KUMAR [facility] : 1985 Age/S: 33 / F [address] [facility] Unit #: [id number] Loc: [place] [address] Phys: Ginger Aguila MD Acct: [id number] Dis Date: Status: ADM IN PHONE #: [phone] Exam Date: 06/13/2019 175 FAX #: [phone] Reason: AMS EXAMS: CPTCODE: [id number] CT HEAD/BRAIN W/O CONT 57734 HISTORY: AMS TECHNIQUE: Noncontrast 2.[address] of the head. Examination acquired within 24 hours of arrival. Automated exposure control for dose reduction. COMPARISON: None FINDINGS: No lacerations or contusions of the scalp or facial soft tissues. Calvarium and skull base are intact. No acute hemorrhage. No intracranial mass, mass effect, or midline shift. No effacement of the sulci or tafoya-white matter interface. No cortical atrophy. No signs of white matter small-vessel disease.No hydrocephalus.. No extra-axial fluid collection. Visualized paranasal sinuses are clear. Mastoid air cells and middle ear cavities are clear. Orbital contents are unremarkable. IMPRESSION: Negative CT head. Location: [facility] at 1804 Reported and signed by: Jamal Epstein MD CC: Ginger Aguila MD Technologist:Graham Angelo RT(R) CTDI: DLP: Trnscb Date/Time: 06/13/2019 (1803) [id number] Orig Print D/T: S: 06/13/2019 (180) PAGE 1 Signed ReportLACTIC [id number] 15:51:00 Test Item Value Reference Range Interpretation Comments LACTIC ACID (test 4.7 mmol/L 0.4-1.9 HH Results ca lled to code = LACT) [id number] by NATANAEL MacarioQD 06/13/19 1551Cr itical results verifie d and read back by Rachel rse? YES CBC W/AUTO [id number] 10:52:00 Test Item Value Reference Range Interpretation Comments WHITE BLOOD CELL (test 5.3 K/mm3 4.5-12.5 N code = WBC) RED BLOOD CELL (test 2.54 mill/mm3 3.7-5.2 L code = RBC) HEMOGLOBIN (test code 9.2 gram/dL 11.5-15.5 L = HGB) HEMATOCRIT (test code 26.9 % 36.0-46.0 L = HCT) MEAN CELL VOLUME (test 105.9 fL 80-98 H code = MCV) MEAN CELL HGB (test 36.2 picogram 27.0-33.0 H code = MCH) MEAN CELL HGB 34.2 gram/dL 33.0-36.0 N CONCETRATION (test code = MCHC) RED CELL DISTRIBUTION 18.8 % 11.6-16.2 H WIDTH (test code = RDW) RED CELL DISTRIBUTION 70.8 fL 37.0-51.0 H WIDTH SD (test code = RDW-SD) PLATELET COUNT (test 119 K/mm3 150-450 L RESULT VERIFIED BY code = PLT) REPEAT ANALYSIS MEAN PLATELET VOLUME 11.4 fL 6.7-11.0 H (test code = MPV) NEUTROPHIL % (test 57.3 % 39.0-69.0 N code = NT%) IMMATURE GRANULOCYTE % 1.5 % 0.0-5.0 N (test code = IG%) LYMPHOCYTE % (test 27.3 % 25.0-55.0 N code = LY%) MONOCYTE % (test code 10.5 % 0.0-10.0 H = MO%) EOSINOPHIL % (test 2.3 % 0.0-5.0 N code = EO%) BASOPHIL % (test code 1.1 % 0.0-1.0 H = BA%) NUCLEATED RBC % (test 2.8 % 0-0 H RESULT VERIFIED BY code = NRBC%) REPEAT ANALYSI S NEUTROPHIL # (test 3.04 K/mm3 1.8-7.7 N code = NT#) IMMATURE GRANULOCYTE # 0.08 x10 3/uL 0-0.03 H (test code = IG#) LYMPHOCYTE # (test 1.45 K/mm3 1.0-5.0 N code = LY#) MONOCYTE # (test code 0.56 K/mm3 0-0.8 N = MO#) EOSINOPHIL # (test 0.12 K/mm3 0.0-0.5 N code = EO#) BASOPHIL # (test code 0.06 K/mm3 0.0-0.2 N = BA#) NUCLEATED RBC # (test 0.15 K/mm3 0.0-0.1 H code = NRBC#) BASIC METABOLIC [id number] 09:23:00 Test Item Value Reference Range Interpretation Comments SODIUM (test code = 137 mmol/L 136-145 N NA) POTASSIUM (test code 3.9 mmol/L 3.5-5.1 N = K) CHLORIDE (test code = 103.0 mmol/L 98-107 N CL) CARBON DIOXIDE (test 20.0 mmol/L 21-32 L code = CO2) ANION GAP (test code 17.9 10-20 N = GAP) GLUCOSE (test code = 76 mg/dL 74-106 N GLU) BLOOD UREA NITROGEN 3 mg/dL 7-18 L (test code = BUN) GLOMERULAR FILTRATION > 60 mL/min >=60 Estima brando GFR by RATE (test code = using Jin fied MDRD GFR) formula.Chronic kidney disease is defined as eith er kidney damageor GFR <60 mL/min/1.73 m2 for >3 months. CREATININE (test code 0.60 mg/dL 0.55-1.02 N Note change in = CREAT) reference range due to change in reagent. BUN/CREATININE RATIO 5.0 10-20 L (test code = BUN/CREA) CALCIUM (test code = 7.1 mg/dL 8.5-10.1 L CA) BASIC METABOLIC [id number] 09:14:00 Test Item Value Reference Range Interpretation Comments SODIUM (test code = NA) 137 mmol/L 136-145 N POTASSIUM (test code = K) 3.9 mmol/L 3.5-5.1 N CHLORIDE (test code = CL) 103.0 mmol/L 98-107 N CARBON DIOXIDE (test code = CO2) mmol/L 21-32 ANION GAP (test code = GAP) 10-20 GLUCOSE (test code = GLU) mg/dL 74-106 BLOOD UREA NITROGEN (test code = mg/dL 7-18 BUN) GLOMERULAR FILTRATION RATE (test mL/min >=60 code = GFR) CREATININE (test code = CREAT) mg/dL 0.55-1.02 BUN/CREATININE RATIO (test code 10-20 = BUN/CREA) CALCIUM (test code = CA) mg/dL 8.5-10.1 [id number] 07:30:00 Test Item Value Reference Range Interpretation Comments PHOSPHORUS (test code = PHOS) 0.6 mg/dL 2.5-4.9 L [id number] 07:30:00 Test Item Value Reference Range Interpretation Comments MAGNESIUM (test code = MAG) 1.9 mg/dL 1.8-2.4 N HEPATIC FUNCTION [id number] 04:37:00 Test Item Value Reference Range Interpretation Comments TOTAL PROTEIN (test 5.9 gram/dL 6.4-8.2 L code = PROT) ALBUMIN (test code = 1.5 g/dL 3.4-5.0 L ALB) GLOBULIN (test code = 4.4 gram/dL 2.7-4.2 H GLOB) ALBUMIN/GLOBULIN RATIO 0.3 0.75-1.50 L (test code = A/G) BILIRUBIN TOTAL (test 13.90 mg/dL 0.0-1.0 H code = BILT) BILIRUBIN DIRECT (test 10.56 mg/dL 0.0-0.20 H code = BILD) SGOT/AST (test code = 225 IUnit/L 15-37 H AST) SGPT/ALT (test code = 82 IUnit/L 12-78 H ALT) ALKALINE PHOSPHATASE 260 IUnit/L 45-117 H Note change in TOTAL (test code = reference range due ALKP) to change in reagent. CALCIUM [id number] 04:37:00 Test Item Value Reference Range Interpretation Comments CALCIUM IONIZED (test code = IZZY) 0.98 mmol/L 1.12-1.32 L HEPATIC FUNCTION [id number] 03:26:00 Test Item Value Reference Range Interpretation Comments TOTAL PROTEIN (test 5.9 gram/dL 6.4-8.2 L code = PROT) ALBUMIN (test code = 1.5 g/dL 3.4-5.0 L ALB) GLOBULIN (test code = 4.4 gram/dL 2.7-4.2 H GLOB) ALBUMIN/GLOBULIN RATIO 0.3 0.75-1.50 L (test code = A/G) BILIRUBIN TOTAL (test 13.90 mg/dL 0.0-1.0 H code = BILT) BILIRUBIN DIRECT (test 10.56 mg/dL 0.0-0.20 H code = BILD) SGOT/AST (test code = 225 IUnit/L 15-37 H AST) SGPT/ALT (test code = 82 IUnit/L 12-78 H ALT) ALKALINE PHOSPHATASE 260 IUnit/L 45-117 H Note change in TOTAL (test code = reference range due ALKP) to change in reagent. CALCIUM [id number] 03:26:00 Test Item Value Reference Range Interpretation Comments CALCIUM IONIZED (test code = IZZY) mmol/L 1.12-1.32 - CTA CHEST FOR [id number] 00:14:00 Name: SHELTON KUMAR [facility] : 1985 Age/S: 33 / F [address] [facility] Unit #: [id number] Loc: [place] [address] Phys: Ginger Aguila MD Acct: [id number] Dis Date: Status: ADM IN PHONE #: [phone] Exam Date: 06/12/2019 2350 FAX #: [phone] Reason: elevated D-dimer EXAMS: CPT CODE: [id number] [place] [id number] HISTORY: Chest pain, evaluate for pulmonary embolus. Location: C3 COMPARISON: None TECHNIQUE: Axial tomograms through the chest were obtained after intravenous contrast utilizing pulmonary CTA protocol. Multiplanar maximum intensity projection reformatted images are provided. One or more of the following dose reduction techniques were used: Automated exposure control, adjustment of the mA and/or kV according to patient size, and/or utilization of iterative reconstruction technique. FINDINGS: The pulmonary arteries are well opacified with no evidence of pulmonary embolus. There is no evidence of aortic aneurysm or dissection. No significant mediastinal mass or adenopathy. Bilateral pleural effusions are present with adjacent atelectasis and mildconsolidation. Hiatal hernia is demonstrated. In the upper abdomen there is diffuse fatty infiltration of partially visualized enlarged liver. There is nonspecific stranding demonstrated in the left upper quadrant. IMPRESSION: 1. No evidence of pulmonary embolus. 2. No evidence of aortic aneurysm or dissection. 3. Bilateral pleural effusions with adjacent atelectasis. 4. Diffuse fatty infiltrated enlarged liver. 5. Nonspecific stranding demonstrated left upper quadrant. This is incompletely visualized. Findings correlate with inflammation seen on prior MRCP and likely represents sequelae of cholecystitis with possible pancreatitis. at 0014 Reported and signed by: Donny Morin MD PAGE 1 Signed Report (CONTINUED) Name: SHELTON KUMAR [facility] : 1985 Age/S: 33 / F [address] Unit #: [id number] Loc: [place] [address] Phys: Ginger Aguila MD Acct: [id number] Dis Date: Status: ADM IN PHONE #: [phone] Exam Date: 06/12/2019 2354 FAX #: [phone] Reason: elevated D-dimer EXAMS: CPT CODE: [id number] [id number] <Continued> CC: Ginger Aguila MD Technologist:RT KASIA CTDI: DLP: Trnscb Date/Time: 06/13/2019 (001) t.SDR.RXC2 Orig Print D/T: S: 06/13/2019 (001) PAGE 2 Signed ReportPROTHROMBIN [id number] 17:52:00 Test Item Value Reference Range Interpretation Comments PROTHROMBIN TIME 27.9 seconds 9.0-14.0 H PATIENT (test code = PTP) INTERNATIONAL NORMAL 2.4 0.8-1.2 H The the rapeutic range RATIO (test code = for oral INR) anticoagulant t herapy formost indicat ions is an internati onal normalized rati o (INR)of between 2.0 and 3.0. The recommended therapeutic INR range for various cli nical situations is l isted below: Clinical Situat ion INR range Pulmonary embol ism treatment (2.0-3.0)Venou s thrombosis treatmentVenous thrombosis prophylaxis (hi gh risk surgery)Prevent ion of systemic emboli sm from: A cute myocardial infa rction Valvula r heart disease Atrial fibrilla tion Mechanical pros thetic heart valves (2.5-3.5) THROMBOPLASTIN TIME [id number] 17:52:00 Test Item Value Reference Range Interpretation Comments THROMBOPLASTIN TIME PARTIAL 41.1 seconds 25.0-36.5 H (test code = PTT) [id number] 17:52:00 Test Item Value Reference Range Interpretation Comments FIBRINOGEN (test code = FIB) 160 mg/dL 200-400 L FIBRIN SPLIT [id number] 17:52:00 Test Item Value Reference Range Interpretation Comments FIBRIN SPLIT PRODUCT (test code = mcg/mL <5 FSP) [id number] 17:52:00 Test Item Value Reference Range Interpretation Comments D-DIMER (test 1469.00 0-500 HH Results called to [id number] code = DDIMER) ng/mLFEU by V.LAB.LT 0 06/12/19 1752Critical re sults verified and re ad back by Nurse? [facility] l Cut-off value for D-Dim er is 500 ng/mL FEU. Comm ent: The [employer] D-Dim er assay is intended for use asan aid in the diag nosis of venous thromboe mbolism (VTE)[deep vein thrombosis (DVT ) or pulmonary embol ism (PE)].The measu rement of D-Dimer should not be used as an aid inthe diagnosis of VT E, in patient with: -Therapeutic do se anticoagulant t herapy for >24 hours -Fib rinolytic therapy within previous 7 days -Trauma o r surgery within previous 4 weeks -Disseminated malignancies - Aortic aneurysm -Seps is, severe infections, pne umonia, severe skin i nfections -Liver cirrhosi s - ANTITHROMBIN III (ATIII)2019-06-12 17:52:00 Test Item Value Reference Range Interpretation Comments ANTITHROMBIN III (ATIII) (test code = % 75-135 AT3) - MRI ABDOMEN W/O [id number] 15:19:00 FAX: Ginger Aguila [phone] [place]: [address] St: ADM Name: SHELTON KUMAR [facility] : 1985 Age/S: 33/F [address] [facility] Unit#: [id number] Loc: V.5 [place] [address] Phys: Ginger Aguila MD Acct: [id number] Dis Date: Status: ADM IN PHONE #: [phone] Exam Date: 06/12/20191509 FAX #: [phone] Reason: possible cholecystitis vs alcohol hepatitis EXAMS: CPT CODE: [id number] MRI ABDOMEN W/O CONT [id number] HISTORY: possible cholecystitis vs alcohol hepatitis TECHNIQUE: Magnetic resonance cholangiopancreatography (MRCP) -- Coronal thin slab MIP andradial thick slab MIP images through the biliary tree; supplemental axial T2 haste through theupper abdomen. COMPARISON: None FINDINGS: The gallbladder is markedly enlarged with pericholecystic fluid and intraluminal sludge. The intra and extrahe patic biliary tree are normal in caliber without filling defects. The liver and spleen and kidneys and pancreas appear to be morphologically within normal limits. IMPRESSION: Findings are highly suspicious for acute cholecystitis. Location: [facility] at 1519 Reported and signed by: Jamal Epstein MD CC: Ginger Aguila MD Technologist: Alvin Hurst)(MR) Trnscrd Date/Time/By: 06/12/2019 (151) : By: [email or web address] Orig Print D/T: S: 06/12/2019 (1522) PAGE 1 Signed [id number] 06:58:00 Test Item Value Reference Range Interpretation Comments PHOSPHORUS (test code = PHOS) 0.9 mg/dL 2.5-4.9 L [id number] 06:58:00 Test Item Value Reference Range Interpretation Comments MAGNESIUM (test code = MAG) 1.0 mg/dL 1.8-2.4 L CALCIUM [id number] 06:58:00 Test Item Value Reference Range Interpretation Comments CALCIUM IONIZED (test code = IZZY) 0.92 mmol/L 1.12-1.32 L [id number] 06:23:00 Test Item Value Reference Range Interpretation Comments PHOSPHORUS (test code = PHOS) 0.9 mg/dL 2.5-4.9 L [id number] 06:23:00 Test Item Value Reference Range Interpretation Comments MAGNESIUM (test code = MAG) 1.0 mg/dL 1.8-2.4 L CALCIUM [id number] 06:23:00 Test Item Value Reference Range Interpretation Comments CALCIUM IONIZED (test code = IZZY) mmol/L 1.12-1.32 [id number] 06:14:00 Test Item Value Reference Range Interpretation Comments PHOSPHORUS (test code = PHOS) mg/dL 2.5-4.9 [id number] 06:14:00 Test Item Value Reference Range Interpretation Comments MAGNESIUM (test code = MAG) 1.0 mg/dL 1.8-2.4 L CALCIUM [id number] 06:14:00 Test Item Value Reference Range Interpretation Comments CALCIUM IONIZED (test code = IZZY) mmol/L 1.12-1.32 LACTIC [id number] 06:05:00 Test Item Value Reference Range Interpretation Comments LACTIC ACID (test 2.1 mmol/L 0.4-1.9 HH Results ca lled to code = LACT) [id number] by NATANAEL MacarioKN2 06/12/19 0605Cr itical results verifie d and read back by Nu rse? Y BASIC METABOLIC [id number] 04:48:00 Test Item Value Reference Range Interpretation Comments SODIUM (test code = 139 mmol/L 136-145 N NA) POTASSIUM (test code 2.7 mmol/L 3.5-5.1 LL Results called to = K) [id number] by NATANAEL MacarioAG1 06/12/19 0345Critical re sults verified and re ad back by Nurse? Y CHLORIDE (test code = 105.0 mmol/L 98-107 N CL) CARBON DIOXIDE (test 24.0 mmol/L 21-32 N code = CO2) ANION GAP (test code 12.7 10-20 N = GAP) GLUCOSE (test code = 61 mg/dL 74-106 L GLU) BLOOD UREA NITROGEN 3 mg/dL 7-18 L (test code = BUN) GLOMERULAR FILTRATION > 60 mL/min >=60 Estima brando GFR by RATE (test code = using Jin fied MDRD GFR) formula.Chronic kidney disease is defined as eith er kidney damageor GFR <60 mL/min/1.73 m2 for >3 months. CREATININE (test code 0.40 mg/dL 0.55-1.02 L Note change in = CREAT) reference range due to change in reagent. BUN/CREATININE RATIO 7.5 10-20 L (test code = BUN/CREA) CALCIUM (test code = 6.4 mg/dL 8.5-10.1 L Results called to CA) [id number] by NATANAEL MacarioAG1 06/12/19 0348Critical re sults verified and re ad back by Nurse? Y HEPATIC FUNCTION [id number] 04:48:00 Test Item Value Reference Range Interpretation Comments TOTAL PROTEIN (test 5.2 gram/dL 6.4-8.2 L code = PROT) ALBUMIN (test code = 1.4 g/dL 3.4-5.0 L ALB) GLOBULIN (test code = 3.8 gram/dL 2.7-4.2 N GLOB) ALBUMIN/GLOBULIN RATIO 0.4 0.75-1.50 L (test code = A/G) BILIRUBIN TOTAL (test 12.40 mg/dL 0.0-1.0 H code = BILT) BILIRUBIN DIRECT (test 9.60 mg/dL 0.0-0.20 H code = BILD) SGOT/AST (test code = 292 IUnit/L 15-37 H AST) SGPT/ALT (test code = 74 IUnit/L 12-78 N ALT) ALKALINE PHOSPHATASE 250 IUnit/L 45-117 H Note change in TOTAL (test code = reference range due ALKP) to change in reagent. [id number] 04:48:00 Test Item Value Reference Range Interpretation Comments PHOSPHORUS (test code = PHOS) 1.1 mg/dL 2.5-4.9 L CREATINE KINASE (CK)2019-06-12 04:48:00 Test Item Value Reference Range Interpretation Comments CREATINE KINASE (CK) (test code = 52 IUnit/L 26-208 N CK) [id number] 04:48:00 Test Item Value Reference Range Interpretation Comments MAGNESIUM (test code = 1.0 mg/dL 1.8-2.4 L Resu lts called to by MAG) VZIGGY.KN2 06/12 0447Critical re sults verified and re ad back by Nurse? Previ ously reported result : mg/dLEdited by: KarenLAB.KN2 on 06/12/19:0448 CALCIUM [id number] 04:48:00 Test Item Value Reference Range Interpretation Comments CALCIUM IONIZED (test code = IZZY) 0.94 mmol/L 1.12-1.32 L BASIC METABOLIC [id number] 04:47:00 Test Item Value Reference Range Interpretation Comments SODIUM (test code = 139 mmol/L 136-145 N NA) POTASSIUM (test code 2.7 mmol/L 3.5-5.1 LL Results called to = K) [id number] by NATANAEL MacarioAG1 06/12/19 0345Critical re sults verified and re ad back by Nurse? Y CHLORIDE (test code = 105.0 mmol/L 98-107 N CL) CARBON DIOXIDE (test 24.0 mmol/L 21-32 N code = CO2) ANION GAP (test code 12.7 10-20 N = GAP) GLUCOSE (test code = 61 mg/dL 74-106 L GLU) BLOOD UREA NITROGEN 3 mg/dL 7-18 L (test code = BUN) GLOMERULAR FILTRATION > 60 mL/min >=60 Estima brando GFR by RATE (test code = using Jin fied MDRD GFR) formula.Chronic kidney disease is defined as [facility] er kidney damageor GFR <60 mL/min/1.73 m2 for >3 months. CREATININE (test code 0.40 mg/dL 0.55-1.02 L Note change in = CREAT) reference range due to change in reagent. BUN/CREATININE RATIO 7.5 10-20 L (test code = BUN/CREA) CALCIUM (test code = 6.4 mg/dL 8.5-10.1 L Results called to CA) [id number] by NATANAEL MacarioAG1 06/12/19 0348Critical re sults verified and re ad back by Nurse? Y HEPATIC FUNCTION [id number] 04:47:00 Test Item Value Reference Range Interpretation Comments TOTAL PROTEIN (test 5.2 gram/dL 6.4-8.2 L code = PROT) ALBUMIN (test code = 1.4 g/dL 3.4-5.0 L ALB) GLOBULIN (test code = 3.8 gram/dL 2.7-4.2 N GLOB) ALBUMIN/GLOBULIN RATIO 0.4 0.75-1.50 L (test code = A/G) BILIRUBIN TOTAL (test 12.40 mg/dL 0.0-1.0 H code = BILT) BILIRUBIN DIRECT (test 9.60 mg/dL 0.0-0.20 H code = BILD) SGOT/AST (test code = 292 IUnit/L 15-37 H AST) SGPT/ALT (test code = 74 IUnit/L 12-78 N ALT) ALKALINE PHOSPHATASE 250 IUnit/L 45-117 H Note change in TOTAL (test code = reference range due ALKP) to change in reagent. [id number] 04:47:00 Test Item Value Reference Range Interpretation Comments PHOSPHORUS (test code = PHOS) 1.1 mg/dL 2.5-4.9 L CREATINE KINASE (CK)2019-06-12 04:47:00 Test Item Value Reference Range Interpretation Comments CREATINE KINASE (CK) (test code = 52 IUnit/L 26-208 N CK) [id number] 04:47:00 Test Item Value Reference Range Interpretation Comments MAGNESIUM (test code = mg/dL 1.8-2.4 Resu lts called to by ) EDDKN2 06/12 0447Critical re sults verified and re ad back by Nurse? CALCIUM [id number] 04:47:00 Test Item Value Reference Range Interpretation Comments CALCIUM IONIZED (test code = IZZY) 0.94 mmol/L 1.12-1.32 L BASIC METABOLIC [id number] 03:56:00 Test Item Value Reference Range Interpretation Comments SODIUM (test code = 139 mmol/L 136-145 N NA) POTASSIUM (test code 2.7 mmol/L 3.5-5.1 LL Results called to = K) [id number] by [facility] 06/12/19 0345Critical re sults verified and re ad back by Nurse? Y CHLORIDE (test code = 105.0 mmol/L 98-107 N CL) CARBON DIOXIDE (test 24.0 mmol/L 21-32 N code = CO2) ANION GAP (test code 12.7 10-20 N = GAP) GLUCOSE (test code = 61 mg/dL 74-106 L GLU) BLOOD UREA NITROGEN 3 mg/dL 7-18 L (test code = BUN) GLOMERULAR FILTRATION > 60 mL/min >=60 Estima brando GFR by RATE (test code = using Jin fied MDRD GFR) formula.Chronic kidney disease is defined as eith er kidney damageor GFR <60 mL/min/1.73 m2 for >3 months. CREATININE (test code 0.40 mg/dL 0.55-1.02 L Note change in = CREAT) reference range due to change in reagent. BUN/CREATININE RATIO 7.5 10-20 L (test code = BUN/CREA) CALCIUM (test code = 6.4 mg/dL 8.5-10.1 L Results called to CA) [id number] by [facility]EL [facility]ST[facility] 06/12/19 0348Critical re sults verified and re ad back by Nurse? Y HEPATIC FUNCTION [id number] 03:56:00 Test Item Value Reference Range Interpretation Comments TOTAL PROTEIN (test 5.2 gram/dL 6.4-8.2 L code = PROT) ALBUMIN (test code = 1.4 g/dL 3.4-5.0 L ALB) GLOBULIN (test code = 3.8 gram/dL 2.7-4.2 N GLOB) ALBUMIN/GLOBULIN RATIO 0.4 0.75-1.50 L (test code = A/G) BILIRUBIN TOTAL (test 12.40 mg/dL 0.0-1.0 H code = BILT) BILIRUBIN DIRECT (test 9.60 mg/dL 0.0-0.20 H code = BILD) SGOT/AST (test code = 292 IUnit/L 15-37 H AST) SGPT/ALT (test code = 74 IUnit/L 12-78 N ALT) ALKALINE PHOSPHATASE 250 IUnit/L 45-117 H Note change in TOTAL (test code = reference range due ALKP) to change in reagent. [id number] 03:56:00 Test Item Value Reference Range Interpretation Comments PHOSPHORUS (test code = PHOS) 1.1 mg/dL 2.5-4.9 L CREATINE KINASE (CK)2019-06-12 03:56:00 Test Item Value Reference Range Interpretation Comments CREATINE KINASE (CK) (test code = 52 IUnit/L 26-208 N CK) [id number] 03:56:00 Test Item Value Reference Range Interpretation Comments MAGNESIUM (test code = MAG) mg/dL 1.8-2.4 CALCIUM [id number] 03:56:00 Test Item Value Reference Range Interpretation Comments CALCIUM IONIZED (test code = IZZY) 0.94 mmol/L 1.12-1.32 L CBC W/AUTO [id number] 03:53:00 Test Item Value Reference Range Interpretation Comments WHITE BLOOD CELL (test 5.9 K/mm3 4.5-12.5 N code = WBC) RED BLOOD CELL (test code 2.46 mill/mm3 3.7-5.2 L = RBC) HEMOGLOBIN (test code = 8.8 gram/dL 11.5-15.5 L HGB) HEMATOCRIT (test code = 25.3 % 36.0-46.0 L HCT) MEAN CELL VOLUME (test 102.8 fL 80-98 H code = MCV) MEAN CELL HGB (test code 35.8 picogram 27.0-33.0 H = MCH) MEAN CELL HGB 34.8 gram/dL 33.0-36.0 N CONCETRATION (test code = MCHC) RED CELL DISTRIBUTION 17.7 % 11.6-16.2 H WIDTH (test code = RDW) RED CELL DISTRIBUTION 65.3 fL 37.0-51.0 H WIDTH SD (test code = RDW-SD) PLATELET COUNT (test code 91 K/mm3 150-450 L = PLT) MEAN PLATELET VOLUME 11.7 fL 6.7-11.0 H (test code = MPV) NEUTROPHIL % (test code = 53.1 % 39.0-69.0 N NT%) IMMATURE GRANULOCYTE % 0.9 % 0.0-5.0 N (test code = IG%) LYMPHOCYTE % (test code = 35.5 % 25.0-55.0 N LY%) MONOCYTE % (test code = 7.1 % 0.0-10.0 N MO%) EOSINOPHIL % (test code = 2.2 % 0.0-5.0 N EO%) BASOPHIL % (test code = 1.2 % 0.0-1.0 H BA%) NUCLEATED RBC % (test 1.5 % 0-0 H code = NRBC%) NEUTROPHIL # (test code = 3.12 K/mm3 1.8-7.7 N NT#) IMMATURE GRANULOCYTE # 0.05 x10 3/uL 0-0.03 H (test code = IG#) LYMPHOCYTE # (test code = 2.09 K/mm3 1.0-5.0 N LY#) MONOCYTE # (test code = 0.42 K/mm3 0-0.8 N MO#) EOSINOPHIL # (test code = 0.13 K/mm3 0.0-0.5 N EO#) BASOPHIL # (test code = 0.07 K/mm3 0.0-0.2 N BA#) NUCLEATED RBC # (test 0.09 K/mm3 0.0-0.1 N code = NRBC#) MANUAL DIFF REQUIRED NO, ONLY SCAN NEEDED (test code = MDIFF) DIFFERENTIAL [id number] 03:53:00 Test Item Value Reference Range Interpretation Comments STAIN ACCEPTABILITY (test STAIN ACCEPTABLE code = STN ACCEPTABLE) POLYCHROMASIA (test code = 2+ POLC) POIKILOCYTOSIS (test code 2+ = POIK) ANISOCYTOSIS (test code = 2+ ANISO) MACROCYTOSIS (test code = 2+ MACR) TARGET CELLS (test code = 2+ TGT) TEAR DROP CELLS (test code 1+ = TEAR) MORPHOLOGY COMMENT (test TEST NOT PERFORMED code = MOC) PLATELET ESTIMATE (test DECREASED code = PLTEST) PLATELET MORPHOLOGY (test NORMAL code = PLTMORPH) BASIC METABOLIC [id number] 03:49:00 Test Item Value Reference Range Interpretation Comments SODIUM (test code = 139 mmol/L 136-145 N NA) POTASSIUM (test code 2.7 mmol/L 3.5-5.1 LL Results called to = K) [id number] by NATANAEL MacarioAG1 06/12/19 0345Critical re sults verified and re ad back by Nurse? Y CHLORIDE (test code = 105.0 mmol/L 98-107 N CL) CARBON DIOXIDE (test 24.0 mmol/L 21-32 N code = CO2) ANION GAP (test code 12.7 10-20 N = GAP) GLUCOSE (test code = 61 mg/dL 74-106 L GLU) BLOOD UREA NITROGEN 3 mg/dL 7-18 L (test code = BUN) GLOMERULAR FILTRATION > 60 mL/min >=60 Estima brando GFR by RATE (test code = using Jin fied MDRD GFR) formula.Chronic kidney disease is defined as eith er kidney damageor GFR <60 mL/min/1.73 m2 for >3 months. CREATININE (test code 0.40 mg/dL 0.55-1.02 L Note change in = CREAT) reference range due to change in reagent. BUN/CREATININE RATIO 7.5 10-20 L (test code = BUN/CREA) CALCIUM (test code = 6.4 mg/dL 8.5-10.1 L Results called to CA) [id number] by NATANAEL MacarioAG1 06/12/19 0348Critical re sults verified and re ad back by Nurse? Y HEPATIC FUNCTION [id number] 03:49:00 Test Item Value Reference Range Interpretation Comments TOTAL PROTEIN (test 5.2 gram/dL 6.4-8.2 L code = PROT) ALBUMIN (test code = 1.4 g/dL 3.4-5.0 L ALB) GLOBULIN (test code = 3.8 gram/dL 2.7-4.2 N GLOB) ALBUMIN/GLOBULIN RATIO 0.4 0.75-1.50 L (test code = A/G) BILIRUBIN TOTAL (test 12.40 mg/dL 0.0-1.0 H code = BILT) BILIRUBIN DIRECT (test 9.60 mg/dL 0.0-0.20 H code = BILD) SGOT/AST (test code = 292 IUnit/L 15-37 H AST) SGPT/ALT (test code = 74 IUnit/L 12-78 N ALT) ALKALINE PHOSPHATASE 250 IUnit/L 45-117 H Note change in TOTAL (test code = reference range due ALKP) to change in reagent. [id number] 03:49:00 Test Item Value Reference Range Interpretation Comments PHOSPHORUS (test code = PHOS) mg/dL 2.5-4.9 CREATINE KINASE (CK)2019-06-12 03:49:00 Test Item Value Reference Range Interpretation Comments CREATINE KINASE (CK) (test code = 52 IUnit/L 26-208 N CK) [id number] 03:49:00 Test Item Value Reference Range Interpretation Comments MAGNESIUM (test code = MAG) mg/dL 1.8-2.4 CALCIUM [id number] 03:49:00 Test Item Value Reference Range Interpretation Comments CALCIUM IONIZED (test code = IZZY) 0.94 mmol/L 1.12-1.32 L LACTIC [id number] 03:45:00 Test Item Value Reference Range Interpretation Comments LACTIC ACID (test 2.2 mmol/L 0.4-1.9 HH Results ca lled to code = LACT) [id number] by NATANAEL MacarioAG1 06/12/19 0345Cr itical results verifie d and read back by Nu rse? Y BASIC METABOLIC [id number] 03:34:00 Test Item Value Reference Range Interpretation Comments SODIUM (test code = NA) mmol/L 136-145 POTASSIUM (test code = K) mmol/L 3.5-5.1 CHLORIDE (test code = CL) mmol/L 98-107 CARBON DIOXIDE (test code = CO2) mmol/L 21-32 ANION GAP (test code = GAP) 10-20 GLUCOSE (test code = GLU) mg/dL 74-106 BLOOD UREA NITROGEN (test code = BUN) mg/dL 7-18 GLOMERULAR FILTRATION RATE (test code mL/min >=60 = GFR) CREATININE (test code = CREAT) mg/dL 0.55-1.02 BUN/CREATININE RATIO (test code = 10-20 BUN/CREA) CALCIUM (test code = CA) mg/dL 8.5-10.1 HEPATIC FUNCTION [id number] 03:34:00 Test Item Value Reference Range Interpretation Comments TOTAL PROTEIN (test code = PROT) gram/dL 6.4-8.2 ALBUMIN (test code = ALB) g/dL 3.4-5.0 GLOBULIN (test code = GLOB) gram/dL 2.7-4.2 ALBUMIN/GLOBULIN RATIO (test code = 0.75-1.50 A/G) BILIRUBIN TOTAL (test code = BILT) mg/dL 0.0-1.0 BILIRUBIN DIRECT (test code = BILD) mg/dL 0.0-0.20 SGOT/AST (test code = AST) IUnit/L 15-37 SGPT/ALT (test code = ALT) IUnit/L 12-78 ALKALINE PHOSPHATASE TOTAL (test IUnit/L 45-117 code = ALKP) [id number] 03:34:00 Test Item Value Reference Range Interpretation Comments PHOSPHORUS (test code = PHOS) mg/dL 2.5-4.9 CREATINE KINASE (CK)2019-06-12 03:34:00 Test Item Value Reference Range Interpretation Comments CREATINE KINASE (CK) (test code = IUnit/L 26-208 CK) [id number] 03:34:00 Test Item Value Reference Range Interpretation Comments MAGNESIUM (test code = MAG) mg/dL 1.8-2.4 CALCIUM [id number] 03:34:00 Test Item Value Reference Range Interpretation Comments CALCIUM IONIZED (test code = IZZY) 0.94 mmol/L 1.12-1.32 L CBC W/AUTO [id number] 03:12:00 Test Item Value Reference Range Interpretation Comments WHITE BLOOD CELL (test 5.9 K/mm3 4.5-12.5 N code = WBC) RED BLOOD CELL (test code 2.46 mill/mm3 3.7-5.2 L = RBC) HEMOGLOBIN (test code = 8.8 gram/dL 11.5-15.5 L HGB) HEMATOCRIT (test code = 25.3 % 36.0-46.0 L HCT) MEAN CELL VOLUME (test 102.8 fL 80-98 H code = MCV) MEAN CELL HGB (test code 35.8 picogram 27.0-33.0 H = MCH) MEAN CELL HGB 34.8 gram/dL 33.0-36.0 N CONCETRATION (test code = MCHC) RED CELL DISTRIBUTION 17.7 % 11.6-16.2 H WIDTH (test code = RDW) RED CELL DISTRIBUTION 65.3 fL 37.0-51.0 H WIDTH SD (test code = RDW-SD) PLATELET COUNT (test code 91 K/mm3 150-450 L = PLT) MEAN PLATELET VOLUME 11.7 fL 6.7-11.0 H (test code = MPV) NEUTROPHIL % (test code = 53.1 % 39.0-69.0 N NT%) IMMATURE GRANULOCYTE % 0.9 % 0.0-5.0 N (test code = IG%) LYMPHOCYTE % (test code = 35.5 % 25.0-55.0 N LY%) MONOCYTE % (test code = 7.1 % 0.0-10.0 N MO%) EOSINOPHIL % (test code = 2.2 % 0.0-5.0 N EO%) BASOPHIL % (test code = 1.2 % 0.0-1.0 H BA%) NUCLEATED RBC % (test 1.5 % 0-0 H code = NRBC%) NEUTROPHIL # (test code = 3.12 K/mm3 1.8-7.7 N NT#) IMMATURE GRANULOCYTE # 0.05 x10 3/uL 0-0.03 H (test code = IG#) LYMPHOCYTE # (test code = 2.09 K/mm3 1.0-5.0 N LY#) MONOCYTE # (test code = 0.42 K/mm3 0-0.8 N MO#) EOSINOPHIL # (test code = 0.13 K/mm3 0.0-0.5 N EO#) BASOPHIL # (test code = 0.07 K/mm3 0.0-0.2 N BA#) NUCLEATED RBC # (test 0.09 K/mm3 0.0-0.1 N code = NRBC#) MANUAL DIFF REQUIRED NO, ONLY SCAN NEEDED (test code = MDIFF) DIFFERENTIAL [id number] 03:12:00 Test Item Value Reference Range Interpretation Comments STAIN ACCEPTABILITY (test code = STN ACCEPTABLE) CABOT RINGS (test code = CAB) MORPHOLOGY COMMENT (test code = MOC) PLATELET ESTIMATE (test code = PLTEST) PLATELET MORPHOLOGY (test code = PLTMORPH) CBC W/AUTO [id number] 03:12:00 Test Item Value Reference Range Interpretation Comments WHITE BLOOD CELL (test 5.9 K/mm3 4.5-12.5 N code = WBC) RED BLOOD CELL (test code 2.46 mill/mm3 3.7-5.2 L = RBC) HEMOGLOBIN (test code = 8.8 gram/dL 11.5-15.5 L HGB) HEMATOCRIT (test code = 25.3 % 36.0-46.0 L HCT) MEAN CELL VOLUME (test 102.8 fL 80-98 H code = MCV) MEAN CELL HGB (test code 35.8 picogram 27.0-33.0 H = MCH) MEAN CELL HGB 34.8 gram/dL 33.0-36.0 N CONCETRATION (test code = MCHC) RED CELL DISTRIBUTION 17.7 % 11.6-16.2 H WIDTH (test code = RDW) RED CELL DISTRIBUTION 65.3 fL 37.0-51.0 H WIDTH SD (test code = RDW-SD) PLATELET COUNT (test code 91 K/mm3 150-450 L = PLT) MEAN PLATELET VOLUME 11.7 fL 6.7-11.0 H (test code = MPV) NEUTROPHIL % (test code = 53.1 % 39.0-69.0 N NT%) IMMATURE GRANULOCYTE % 0.9 % 0.0-5.0 N (test code = IG%) LYMPHOCYTE % (test code = 35.5 % 25.0-55.0 N LY%) MONOCYTE % (test code = 7.1 % 0.0-10.0 N MO%) EOSINOPHIL % (test code = 2.2 % 0.0-5.0 N EO%) BASOPHIL % (test code = 1.2 % 0.0-1.0 H BA%) NUCLEATED RBC % (test 1.5 % 0-0 H code = NRBC%) NEUTROPHIL # (test code = 3.12 K/mm3 1.8-7.7 N NT#) IMMATURE GRANULOCYTE # 0.05 x10 3/uL 0-0.03 H (test code = IG#) LYMPHOCYTE # (test code = 2.09 K/mm3 1.0-5.0 N LY#) MONOCYTE # (test code = 0.42 K/mm3 0-0.8 N MO#) EOSINOPHIL # (test code = 0.13 K/mm3 0.0-0.5 N EO#) BASOPHIL # (test code = 0.07 K/mm3 0.0-0.2 N BA#) NUCLEATED RBC # (test 0.09 K/mm3 0.0-0.1 N code = NRBC#) MANUAL DIFF REQUIRED NO, ONLY SCAN NEEDED (test code = MDIFF) DIFFERENTIAL [id number] 03:12:00 Test Item Value Reference Range Interpretation Comments STAIN ACCEPTABILITY (test code = STN ACCEPTABLE) CABOT RINGS (test code = CAB) MORPHOLOGY COMMENT (test code = MOC) PLATELET ESTIMATE (test code = PLTEST) PLATELET MORPHOLOGY (test code = PLTMORPH) CBC W/AUTO [id number] 03:12:00 Test Item Value Reference Range Interpretation Comments WHITE BLOOD CELL (test 5.9 K/mm3 4.5-12.5 N code = WBC) RED BLOOD CELL (test code 2.46 mill/mm3 3.7-5.2 L = RBC) HEMOGLOBIN (test code = 8.8 gram/dL 11.5-15.5 L HGB) HEMATOCRIT (test code = 25.3 % 36.0-46.0 L HCT) MEAN CELL VOLUME (test 102.8 fL 80-98 H code = MCV) MEAN CELL HGB (test code 35.8 picogram 27.0-33.0 H = MCH) MEAN CELL HGB 34.8 gram/dL 33.0-36.0 N CONCETRATION (test code = MCHC) RED CELL DISTRIBUTION 17.7 % 11.6-16.2 H WIDTH (test code = RDW) RED CELL DISTRIBUTION 65.3 fL 37.0-51.0 H WIDTH SD (test code = RDW-SD) PLATELET COUNT (test code 91 K/mm3 150-450 L = PLT) MEAN PLATELET VOLUME 11.7 fL 6.7-11.0 H (test code = MPV) NEUTROPHIL % (test code = 53.1 % 39.0-69.0 N NT%) IMMATURE GRANULOCYTE % 0.9 % 0.0-5.0 N (test code = IG%) LYMPHOCYTE % (test code = 35.5 % 25.0-55.0 N LY%) MONOCYTE % (test code = 7.1 % 0.0-10.0 N MO%) EOSINOPHIL % (test code = 2.2 % 0.0-5.0 N EO%) BASOPHIL % (test code = 1.2 % 0.0-1.0 H BA%) NUCLEATED RBC % (test 1.5 % 0-0 H code = NRBC%) NEUTROPHIL # (test code = 3.12 K/mm3 1.8-7.7 N NT#) IMMATURE GRANULOCYTE # 0.05 x10 3/uL 0-0.03 H (test code = IG#) LYMPHOCYTE # (test code = 2.09 K/mm3 1.0-5.0 N LY#) MONOCYTE # (test code = 0.42 K/mm3 0-0.8 N MO#) EOSINOPHIL # (test code = 0.13 K/mm3 0.0-0.5 N EO#) BASOPHIL # (test code = 0.07 K/mm3 0.0-0.2 N BA#) NUCLEATED RBC # (test 0.09 K/mm3 0.0-0.1 N code = NRBC#) MANUAL DIFF REQUIRED NO, ONLY SCAN NEEDED (test code = MDIFF) DIFFERENTIAL [id number] 03:12:00 Test Item Value Reference Range Interpretation Comments STAIN ACCEPTABILITY (test code = STN ACCEPTABLE) MORPHOLOGY COMMENT (test code = MOC) PLATELET ESTIMATE (test code = PLTEST) PLATELET MORPHOLOGY (test code = PLTMORPH) CBC W/AUTO [id number] 03:12:00 Test Item Value Reference Range Interpretation Comments WHITE BLOOD CELL (test 5.9 K/mm3 4.5-12.5 N code = WBC) RED BLOOD CELL (test code 2.46 mill/mm3 3.7-5.2 L = RBC) HEMOGLOBIN (test code = 8.8 gram/dL 11.5-15.5 L HGB) HEMATOCRIT (test code = 25.3 % 36.0-46.0 L HCT) MEAN CELL VOLUME (test 102.8 fL 80-98 H code = MCV) MEAN CELL HGB (test code 35.8 picogram 27.0-33.0 H = MCH) MEAN CELL HGB 34.8 gram/dL 33.0-36.0 N CONCETRATION (test code = MCHC) RED CELL DISTRIBUTION 17.7 % 11.6-16.2 H WIDTH (test code = RDW) RED CELL DISTRIBUTION 65.3 fL 37.0-51.0 H WIDTH SD (test code = RDW-SD) PLATELET COUNT (test code 91 K/mm3 150-450 L = PLT) MEAN PLATELET VOLUME 11.7 fL 6.7-11.0 H (test code = MPV) NEUTROPHIL % (test code = 53.1 % 39.0-69.0 N NT%) IMMATURE GRANULOCYTE % 0.9 % 0.0-5.0 N (test code = IG%) LYMPHOCYTE % (test code = 35.5 % 25.0-55.0 N LY%) MONOCYTE % (test code = 7.1 % 0.0-10.0 N MO%) EOSINOPHIL % (test code = 2.2 % 0.0-5.0 N EO%) BASOPHIL % (test code = 1.2 % 0.0-1.0 H BA%) NUCLEATED RBC % (test 1.5 % 0-0 H code = NRBC%) NEUTROPHIL # (test code = 3.12 K/mm3 1.8-7.7 N NT#) IMMATURE GRANULOCYTE # 0.05 x10 3/uL 0-0.03 H (test code = IG#) LYMPHOCYTE # (test code = 2.09 K/mm3 1.0-5.0 N LY#) MONOCYTE # (test code = 0.42 K/mm3 0-0.8 N MO#) EOSINOPHIL # (test code = 0.13 K/mm3 0.0-0.5 N EO#) BASOPHIL # (test code = 0.07 K/mm3 0.0-0.2 N BA#) NUCLEATED RBC # (test 0.09 K/mm3 0.0-0.1 N code = NRBC#) MANUAL DIFF REQUIRED NO, ONLY SCAN NEEDED (test code = MDIFF) DIFFERENTIAL [id number] 03:12:00 Test Item Value Reference Range Interpretation Comments STAIN ACCEPTABILITY (test code = STN ACCEPTABLE) CABOT RINGS (test code = CAB) MORPHOLOGY COMMENT (test code = MOC) PLATELET ESTIMATE (test code = PLTEST) PLATELET MORPHOLOGY (test code = PLTMORPH) LACTIC [id number] 21:43:00 Test Item Value Reference Range Interpretation Comments LACTIC ACID (test 2.5 mmol/L 0.4-1.9 HH Results ca lled to code = LACT) [id number] by VRashaun YUN.GA 06/11/19 2142Cr itical results verifie d and read back by Nu rse? Y LACTIC [id number] 19:32:00 Test Item Value Reference Range Interpretation Comments LACTIC ACID (test 2.1 mmol/L 0.4-1.9 HH Results ca lled to code = LACT) [id number] by NATANAEL SARABIA 06/11/19 1931Cr itical results verifie d and read back by Nu rse? Y LACTIC [id number] 17:28:00 Test Item Value Reference Range Interpretation Comments LACTIC ACID (test 2.3 mmol/L 0.4-1.9 HH Results ca lled to code = LACT) [id number] by NATANAEL MacarioGA 06/11/19 1726Cr itical results verifie d and read back by Nu rse? Y LACTIC [id number] 13:57:00 Test Item Value Reference Range Interpretation Comments LACTIC ACID (test 3.0 mmol/L 0.4-1.9 HH Results ca lled to code = LACT) [id number] by NATANAEL MacarioWJC 06/11/19 1356Cr itical results verifie d and read back by Nu rse?Y LACTIC [id number] 10:36:00 Test Item Value Reference Range Interpretation Comments LACTIC ACID (test 2.5 mmol/L 0.4-1.9 HH Results ca lled to code = LACT) [id number] by NATANAEL MacarioKP3 06/11/19 1036Cr itical results verifie d and read back by Nu rse? YES Urine [id number] 07:56:52 Test Item Value Reference Range Interpretation Comments ORGANISM (test code = Escherichia coli ORGANISM) Amikacin (test code = S Amik) Ampicillin (test code = S Amp) Ampicillin/Sulbactam S (test code = Amp/Sul) Cefazolin (test code = S Cefaz) Cefepime (test code = S Cefep) Cefoxitin (test code = S Cefox) Ceftazidime (test code = S Ceftaz) Ceftriaxone (test code = S Ceftri) Ciprofloxacin (test code S = Cipro) ESBL Confirmation Test (test code = ESBL) Gentamicin (test code = S Gent) Levofloxacin (test code S = Levo) Meropenem (test code = S Miriam) Nitrofurantoin (test S code = Nitro) Piperacillin/Tazobactam S (test code = Pip/Aaron) Tobramycin (test code = S Tobra) Trimethoprim/Sulfa (test S code = SXT) Final Report (test code 10,000-50,000 cfu/ml = Final Report) Escherichia coli C Urine Added by [id number] 07:43:00 Test Item Value Reference Range Interpretation Comments PHOSPHORUS (test code = PHOS) 0.5 mg/dL 2.5-4.9 L REDRAW FOR [id number] 07:43:00 Test Item Value Reference Range Interpretation Comments MAGNESIUM (test code = MAG) 1.4 mg/dL 1.8-2.4 L REDRAW FOR [id number] METABOLIC [id number] 07:43:00 Test Item Value Reference Range Interpretation Comments SODIUM (test code = 137 mmol/L 136-145 N NA) POTASSIUM (test code = 2.7 mmol/L 3.5-5.1 LL Resul ts called to K) [id number] by VJakobLABCONNOR 06/11 0742Critical results verifie d and read back b y Nurse? Y CHLORIDE (test code = 101.0 mmol/L 98-107 N CL) CARBON DIOXIDE (test 26.0 mmol/L 21-32 N code = CO2) ANION GAP (test code = 12.7 10-20 N GAP) GLUCOSE (test code = 128 mg/dL 74-106 H GLU) BLOOD UREA NITROGEN 8 mg/dL 7-18 N (test code = BUN) GLOMERULAR FILTRATION > 60 mL/min >=60 Estima brando GFR by RATE (test code = GFR) using Modified MDRD formula.Chronic kidney disease is defined as eith er kidney damageor GFR <60 mL/min/1.73 m2 for >3 months. CREATININE (test code 0.60 mg/dL 0.55-1.02 N Note change in = CREAT) reference range due to change in reagent. BUN/CREATININE RATIO 13.3 10-20 N (test code = BUN/CREA) TOTAL PROTEIN (test 5.5 gram/dL 6.4-8.2 L code = PROT) ALBUMIN (test code = 1.5 g/dL 3.4-5.0 L ALB) GLOBULIN (test code = 4.0 gram/dL 2.7-4.2 N GLOB) ALBUMIN/GLOBULIN RATIO 0.4 0.75-1.50 L (test code = A/G) CALCIUM (test code = 6.6 mg/dL 8.5-10.1 L CA) BILIRUBIN TOTAL (test 10.50 mg/dL 0.0-1.0 H code = BILT) SGOT/AST (test code = 419 IUnit/L 15-37 H AST) SGPT/ALT (test code = 75 IUnit/L 12-78 N ALT) ALKALINE PHOSPHATASE 274 IUnit/L 45-117 H Note change in TOTAL (test code = reference range due ALKP) to change in reagent. REDRAW FOR [id number] PROFILE (CORONARY RISK)2019-06-11 07:43:00 Test Item Value Reference Range Interpretation Comments TRIGLYCERIDES (test 344 mg/dL 20-150 H code = TRIG) CHOLESTEROL (test code 234 mg/dL 0-200 H = CHOL) CHOLESTEROL/HDL RATIO 29.0 RATIO 0-4.9 H RISK A SSOCIATED WITH (test code = CHOLHDL) CHOL/H DL RATIOS: Risk M miah Female1/2 AV ERAGE 3.43 3.27AVERAGE 4.97 4. 442X AVERAGE 9.55 7.053X AV ERAGE 23.39 11.04 REFERENCE VALUE IS RELATED TO R ISK LEVELS ASRECOMM ENDED BY THE RAFAEL. HEA RT, LUNG, AND BLOOD INST. HDL CHOLESTEROL (test 8 mg/dL 40-60 L code = HDL) LIPOPROTEIN LDL (test 196 mg/dL 100-129 H RN PER [facility], CONTACT code = LDL) PHYSICIAN IMMED IATELY IF THIS IS A [facility] [place], AMI OR CAROTID STENOSIS PATIEN T WHEN THE LDL >100 ([address] OCCURENCE, THIS ADMISSION)===== ====== ====== ====== ======Reference Interval: mg/dL mmol/L--------- ------ ------ ------ --Optimal <100 <2.6Near/abov e optimal 100-129 2.6-3.3Borderli ne High 130-159 3.4-4.1High 16 0-189 4.1-4.9Ve ry High >=190 >=4.9========= This LDL result is a direct measurement.=== ====== REDRAW FOR [id number] W/AUTO [id number] 06:22:00 Test Item Value Reference Range Interpretation Comments WHITE BLOOD CELL (test 4.5 K/mm3 4.5-12.5 N code = WBC) RED BLOOD CELL (test code 2.43 mill/mm3 3.7-5.2 L = RBC) HEMOGLOBIN (test code = 8.7 gram/dL 11.5-15.5 L HGB) HEMATOCRIT (test code = 25.0 % 36.0-46.0 L HCT) MEAN CELL VOLUME (test 102.9 fL 80-98 H code = MCV) MEAN CELL HGB (test code 35.8 picogram 27.0-33.0 H = MCH) MEAN CELL HGB 34.8 gram/dL 33.0-36.0 N CONCETRATION (test code = MCHC) RED CELL DISTRIBUTION 17.4 % 11.6-16.2 H WIDTH (test code = RDW) RED CELL DISTRIBUTION 65.0 fL 37.0-51.0 H WIDTH SD (test code = RDW-SD) PLATELET COUNT (test code 100 K/mm3 150-450 L = PLT) MEAN PLATELET VOLUME 12.3 fL 6.7-11.0 H (test code = MPV) NEUTROPHIL % (test code = 64.9 % 39.0-69.0 N NT%) IMMATURE GRANULOCYTE % 0.7 % 0.0-5.0 N (test code = IG%) LYMPHOCYTE % (test code = 26.1 % 25.0-55.0 N LY%) MONOCYTE % (test code = 6.5 % 0.0-10.0 N MO%) EOSINOPHIL % (test code = 0.9 % 0.0-5.0 N EO%) BASOPHIL % (test code = 0.9 % 0.0-1.0 N BA%) NUCLEATED RBC % (test 0.4 % 0-0 H code = NRBC%) NEUTROPHIL # (test code = 2.89 K/mm3 1.8-7.7 N NT#) IMMATURE GRANULOCYTE # 0.03 x10 3/uL 0-0.03 N (test code = IG#) LYMPHOCYTE # (test code = 1.16 K/mm3 1.0-5.0 N LY#) MONOCYTE # (test code = 0.29 K/mm3 0-0.8 N MO#) EOSINOPHIL # (test code = 0.04 K/mm3 0.0-0.5 N EO#) BASOPHIL # (test code = 0.04 K/mm3 0.0-0.2 N BA#) NUCLEATED RBC # (test 0.02 K/mm3 0.0-0.1 N code = NRBC#) MANUAL DIFF REQUIRED NO, ONLY SCAN NEEDED (test code = MDIFF) DIFFERENTIAL [id number] 06:22:00 Test Item Value Reference Range Interpretation Comments STAIN ACCEPTABILITY (test STAIN ACCEPTABLE code = STN ACCEPTABLE) POLYCHROMASIA (test code = 1+ POLC) POIKILOCYTOSIS (test code 2+ = POIK) ANISOCYTOSIS (test code = 3+ ANISO) MACROCYTOSIS (test code = 3+ MACR) TARGET CELLS (test code = 2+ TGT) MORPHOLOGY COMMENT (test TEST NOT PERFORMED code = MOC) PLATELET ESTIMATE (test DECREASED code = PLTEST) PLATELET MORPHOLOGY (test NORMAL code = PLTMORPH) CBC W/AUTO [id number] 05:52:00 Test Item Value Reference Range Interpretation Comments WHITE BLOOD CELL (test 4.5 K/mm3 4.5-12.5 N code = WBC) RED BLOOD CELL (test code 2.43 mill/mm3 3.7-5.2 L = RBC) HEMOGLOBIN (test code = 8.7 gram/dL 11.5-15.5 L HGB) HEMATOCRIT (test code = 25.0 % 36.0-46.0 L HCT) MEAN CELL VOLUME (test 102.9 fL 80-98 H code = MCV) MEAN CELL HGB (test code 35.8 picogram 27.0-33.0 H = MCH) MEAN CELL HGB 34.8 gram/dL 33.0-36.0 N CONCETRATION (test code = MCHC) RED CELL DISTRIBUTION 17.4 % 11.6-16.2 H WIDTH (test code = RDW) RED CELL DISTRIBUTION 65.0 fL 37.0-51.0 H WIDTH SD (test code = RDW-SD) PLATELET COUNT (test code 100 K/mm3 150-450 L = PLT) MEAN PLATELET VOLUME 12.3 fL 6.7-11.0 H (test code = MPV) NEUTROPHIL % (test code = 64.9 % 39.0-69.0 N NT%) IMMATURE GRANULOCYTE % 0.7 % 0.0-5.0 N (test code = IG%) LYMPHOCYTE % (test code = 26.1 % 25.0-55.0 N LY%) MONOCYTE % (test code = 6.5 % 0.0-10.0 N MO%) EOSINOPHIL % (test code = 0.9 % 0.0-5.0 N EO%) BASOPHIL % (test code = 0.9 % 0.0-1.0 N BA%) NUCLEATED RBC % (test 0.4 % 0-0 H code = NRBC%) NEUTROPHIL # (test code = 2.89 K/mm3 1.8-7.7 N NT#) IMMATURE GRANULOCYTE # 0.03 x10 3/uL 0-0.03 N (test code = IG#) LYMPHOCYTE # (test code = 1.16 K/mm3 1.0-5.0 N LY#) MONOCYTE # (test code = 0.29 K/mm3 0-0.8 N MO#) EOSINOPHIL # (test code = 0.04 K/mm3 0.0-0.5 N EO#) BASOPHIL # (test code = 0.04 K/mm3 0.0-0.2 N BA#) NUCLEATED RBC # (test 0.02 K/mm3 0.0-0.1 N code = NRBC#) MANUAL DIFF REQUIRED NO, ONLY SCAN NEEDED (test code = MDIFF) DIFFERENTIAL [id number] 05:52:00 Test Item Value Reference Range Interpretation Comments STAIN ACCEPTABILITY (test code = STN ACCEPTABLE) CABOT RINGS (test code = CAB) MORPHOLOGY COMMENT (test code = MOC) PLATELET ESTIMATE (test code = PLTEST) PLATELET MORPHOLOGY (test code = PLTMORPH) CBC W/AUTO [id number] 05:52:00 Test Item Value Reference Range Interpretation Comments WHITE BLOOD CELL (test 4.5 K/mm3 4.5-12.5 N code = WBC) RED BLOOD CELL (test code 2.43 mill/mm3 3.7-5.2 L = RBC) HEMOGLOBIN (test code = 8.7 gram/dL 11.5-15.5 L HGB) HEMATOCRIT (test code = 25.0 % 36.0-46.0 L HCT) MEAN CELL VOLUME (test 102.9 fL 80-98 H code = MCV) MEAN CELL HGB (test code 35.8 picogram 27.0-33.0 H = MCH) MEAN CELL HGB 34.8 gram/dL 33.0-36.0 N CONCETRATION (test code = MCHC) RED CELL DISTRIBUTION 17.4 % 11.6-16.2 H WIDTH (test code = RDW) RED CELL DISTRIBUTION 65.0 fL 37.0-51.0 H WIDTH SD (test code = RDW-SD) PLATELET COUNT (test code 100 K/mm3 150-450 L = PLT) MEAN PLATELET VOLUME 12.3 fL 6.7-11.0 H (test code = MPV) NEUTROPHIL % (test code = 64.9 % 39.0-69.0 N NT%) IMMATURE GRANULOCYTE % 0.7 % 0.0-5.0 N (test code = IG%) LYMPHOCYTE % (test code = 26.1 % 25.0-55.0 N LY%) MONOCYTE % (test code = 6.5 % 0.0-10.0 N MO%) EOSINOPHIL % (test code = 0.9 % 0.0-5.0 N EO%) BASOPHIL % (test code = 0.9 % 0.0-1.0 N BA%) NUCLEATED RBC % (test 0.4 % 0-0 H code = NRBC%) NEUTROPHIL # (test code = 2.89 K/mm3 1.8-7.7 N NT#) IMMATURE GRANULOCYTE # 0.03 x10 3/uL 0-0.03 N (test code = IG#) LYMPHOCYTE # (test code = 1.16 K/mm3 1.0-5.0 N LY#) MONOCYTE # (test code = 0.29 K/mm3 0-0.8 N MO#) EOSINOPHIL # (test code = 0.04 K/mm3 0.0-0.5 N EO#) BASOPHIL # (test code = 0.04 K/mm3 0.0-0.2 N BA#) NUCLEATED RBC # (test 0.02 K/mm3 0.0-0.1 N code = NRBC#) MANUAL DIFF REQUIRED NO, ONLY SCAN NEEDED (test code = MDIFF) DIFFERENTIAL [id number] 05:52:00 Test Item Value Reference Range Interpretation Comments STAIN ACCEPTABILITY (test code = STN ACCEPTABLE) CABOT RINGS (test code = CAB) MORPHOLOGY COMMENT (test code = MOC) PLATELET ESTIMATE (test code = PLTEST) PLATELET MORPHOLOGY (test code = PLTMORPH) CBC W/AUTO [id number] 05:52:00 Test Item Value Reference Range Interpretation Comments WHITE BLOOD CELL (test 4.5 K/mm3 4.5-12.5 N code = WBC) RED BLOOD CELL (test code 2.43 mill/mm3 3.7-5.2 L = RBC) HEMOGLOBIN (test code = 8.7 gram/dL 11.5-15.5 L HGB) HEMATOCRIT (test code = 25.0 % 36.0-46.0 L HCT) MEAN CELL VOLUME (test 102.9 fL 80-98 H code = MCV) MEAN CELL HGB (test code 35.8 picogram 27.0-33.0 H = MCH) MEAN CELL HGB 34.8 gram/dL 33.0-36.0 N CONCETRATION (test code = MCHC) RED CELL DISTRIBUTION 17.4 % 11.6-16.2 H WIDTH (test code = RDW) RED CELL DISTRIBUTION 65.0 fL 37.0-51.0 H WIDTH SD (test code = RDW-SD) PLATELET COUNT (test code 100 K/mm3 150-450 L = PLT) MEAN PLATELET VOLUME 12.3 fL 6.7-11.0 H (test code = MPV) NEUTROPHIL % (test code = 64.9 % 39.0-69.0 N NT%) IMMATURE GRANULOCYTE % 0.7 % 0.0-5.0 N (test code = IG%) LYMPHOCYTE % (test code = 26.1 % 25.0-55.0 N LY%) MONOCYTE % (test code = 6.5 % 0.0-10.0 N MO%) EOSINOPHIL % (test code = 0.9 % 0.0-5.0 N EO%) BASOPHIL % (test code = 0.9 % 0.0-1.0 N BA%) NUCLEATED RBC % (test 0.4 % 0-0 H code = NRBC%) NEUTROPHIL # (test code = 2.89 K/mm3 1.8-7.7 N NT#) IMMATURE GRANULOCYTE # 0.03 x10 3/uL 0-0.03 N (test code = IG#) LYMPHOCYTE # (test code = 1.16 K/mm3 1.0-5.0 N LY#) MONOCYTE # (test code = 0.29 K/mm3 0-0.8 N MO#) EOSINOPHIL # (test code = 0.04 K/mm3 0.0-0.5 N EO#) BASOPHIL # (test code = 0.04 K/mm3 0.0-0.2 N BA#) NUCLEATED RBC # (test 0.02 K/mm3 0.0-0.1 N code = NRBC#) MANUAL DIFF REQUIRED NO, ONLY SCAN NEEDED (test code = MDIFF) DIFFERENTIAL [id number] 05:52:00 Test Item Value Reference Range Interpretation Comments STAIN ACCEPTABILITY (test code = STN ACCEPTABLE) MORPHOLOGY COMMENT (test code = MOC) PLATELET ESTIMATE (test code = PLTEST) PLATELET MORPHOLOGY (test code = PLTMORPH) CBC W/AUTO [id number] 05:52:00 Test Item Value Reference Range Interpretation Comments WHITE BLOOD CELL (test 4.5 K/mm3 4.5-12.5 N code = WBC) RED BLOOD CELL (test code 2.43 mill/mm3 3.7-5.2 L = RBC) HEMOGLOBIN (test code = 8.7 gram/dL 11.5-15.5 L HGB) HEMATOCRIT (test code = 25.0 % 36.0-46.0 L HCT) MEAN CELL VOLUME (test 102.9 fL 80-98 H code = MCV) MEAN CELL HGB (test code 35.8 picogram 27.0-33.0 H = MCH) MEAN CELL HGB 34.8 gram/dL 33.0-36.0 N CONCETRATION (test code = MCHC) RED CELL DISTRIBUTION 17.4 % 11.6-16.2 H WIDTH (test code = RDW) RED CELL DISTRIBUTION 65.0 fL 37.0-51.0 H WIDTH SD (test code = RDW-SD) PLATELET COUNT (test code 100 K/mm3 150-450 L = PLT) MEAN PLATELET VOLUME 12.3 fL 6.7-11.0 H (test code = MPV) NEUTROPHIL % (test code = 64.9 % 39.0-69.0 N NT%) IMMATURE GRANULOCYTE % 0.7 % 0.0-5.0 N (test code = IG%) LYMPHOCYTE % (test code = 26.1 % 25.0-55.0 N LY%) MONOCYTE % (test code = 6.5 % 0.0-10.0 N MO%) EOSINOPHIL % (test code = 0.9 % 0.0-5.0 N EO%) BASOPHIL % (test code = 0.9 % 0.0-1.0 N BA%) NUCLEATED RBC % (test 0.4 % 0-0 H code = NRBC%) NEUTROPHIL # (test code = 2.89 K/mm3 1.8-7.7 N NT#) IMMATURE GRANULOCYTE # 0.03 x10 3/uL 0-0.03 N (test code = IG#) LYMPHOCYTE # (test code = 1.16 K/mm3 1.0-5.0 N LY#) MONOCYTE # (test code = 0.29 K/mm3 0-0.8 N MO#) EOSINOPHIL # (test code = 0.04 K/mm3 0.0-0.5 N EO#) BASOPHIL # (test code = 0.04 K/mm3 0.0-0.2 N BA#) NUCLEATED RBC # (test 0.02 K/mm3 0.0-0.1 N code = NRBC#) MANUAL DIFF REQUIRED NO, ONLY SCAN NEEDED (test code = MDIFF) DIFFERENTIAL [id number] 05:52:00 Test Item Value Reference Range Interpretation Comments STAIN ACCEPTABILITY (test code = STN ACCEPTABLE) CABOT RINGS (test code = CAB) MORPHOLOGY COMMENT (test code = MOC) PLATELET ESTIMATE (test code = PLTEST) PLATELET MORPHOLOGY (test code = PLTMORPH) LACTIC [id number] 00:59:00 Test Item Value Reference Range Interpretation Comments LACTIC ACID (test 4.3 mmol/L 0.4-1.9 HH Results ca lled to code = LACT) [id number] by NATANAEL MacarioJP1 06/11/19 0059Cr itical results verifie d and read back by Rachel rse? YES LACTIC [id number] 21:45:00 Test Item Value Reference Range Interpretation Comments LACTIC ACID (test 4.6 mmol/L 0.4-1.9 HH Results ca lled to code = LACT) [id number] by NATANAEL Macario 06/10/19 2145Cr itical results verifie d and read back by Nu rse? Y [id number] 19:52:00 Test Item Value Reference Range Interpretation Comments MAGNESIUM (test code = MAG) 1.2 mg/dL 1.8-2.4 L BASIC METABOLIC [id number] 19:30:00 Test Item Value Reference Range Interpretation Comments SODIUM (test code = 136 mmol/L 136-145 N NA) POTASSIUM (test code = 2.5 mmol/L 3.5-5.1 LL Resul ts called to K) [id number] by NATANAEL Macario 06/10/19 1930Critical re sults verified and re ad back by Nurse? Y CHLORIDE (test code = 96.0 mmol/L 98-107 L CL) CARBON DIOXIDE (test 27.0 mmol/L 21-32 N code = CO2) ANION GAP (test code = 15.5 10-20 N GAP) GLUCOSE (test code = 53 mg/dL 74-106 L GLU) BLOOD UREA NITROGEN 9 mg/dL 7-18 N (test code = BUN) GLOMERULAR FILTRATION > 60 mL/min >=60 Estima brando GFR by RATE (test code = GFR) using Modified MDRD formula.Chronic kidney disease is defined as eith er kidney damageor GFR <60 mL/min/1.73 m2 for >3 months. CREATININE (test code 0.60 mg/dL 0.55-1.02 N Note change in = CREAT) reference range due to change in reagent. BUN/CREATININE RATIO 15.0 10-20 N (test code = BUN/CREA) CALCIUM (test code = 7.3 mg/dL 8.5-10.1 L CA) HEPATIC FUNCTION [id number] 19:30:00 Test Item Value Reference Range Interpretation Comments TOTAL PROTEIN (test 6.0 gram/dL 6.4-8.2 L code = PROT) ALBUMIN (test code = 1.6 g/dL 3.4-5.0 L ALB) GLOBULIN (test code = 4.4 gram/dL 2.7-4.2 H GLOB) ALBUMIN/GLOBULIN RATIO 0.4 0.75-1.50 L (test code = A/G) BILIRUBIN TOTAL (test 10.10 mg/dL 0.0-1.0 H code = BILT) BILIRUBIN DIRECT (test 8.05 mg/dL 0.0-0.20 H code = BILD) SGOT/AST (test code = 472 IUnit/L 15-37 H AST) SGPT/ALT (test code = 79 IUnit/L 12-78 H ALT) ALKALINE PHOSPHATASE 315 IUnit/L 45-117 H Note change in TOTAL (test code = reference range due ALKP) to change in reagent. [id number] 19:30:00 Test Item Value Reference Range Interpretation Comments LIPASE (test code = LIP) 305 U/L 73.0-393.0 N LACTIC [id number] 19:30:00 Test Item Value Reference Range Interpretation Comments LACTIC ACID (test 4.8 mmol/L 0.4-1.9 HH Results ca lled to code = LACT) [id number] by NATANAEL OCONNELL 06/10/19 1930Cr itical results verifie d and read back by Nu rse? Y CBC W/AUTO [id number] 19:11:00 Test Item Value Reference Range Interpretation Comments WHITE BLOOD CELL (test code = 6.0 K/mm3 4.5-12.5 N WBC) RED BLOOD CELL (test code = 2.78 mill/mm3 3.7-5.2 L RBC) HEMOGLOBIN (test code = HGB) 9.8 gram/dL 11.5-15.5 L HEMATOCRIT (test code = HCT) 28.4 % 36.0-46.0 L MEAN CELL VOLUME (test code = 102.2 fL 80-98 H MCV) MEAN CELL HGB (test code = MCH) 35.3 picogram 27.0-33.0 H MEAN CELL HGB CONCETRATION 34.5 gram/dL 33.0-36.0 N (test code = MCHC) RED CELL DISTRIBUTION WIDTH 17.3 % 11.6-16.2 H (test code = RDW) RED CELL DISTRIBUTION WIDTH SD 64.1 fL 37.0-51.0 H (test code = RDW-SD) PLATELET COUNT (test code = 118 K/mm3 150-450 L PLT) MEAN PLATELET VOLUME (test code 12.0 fL 6.7-11.0 H = MPV) NEUTROPHIL % (test code = NT%) 53.9 % 39.0-69.0 N IMMATURE GRANULOCYTE % (test 0.5 % 0.0-5.0 N code = IG%) LYMPHOCYTE % (test code = LY%) 35.2 % 25.0-55.0 N MONOCYTE % (test code = MO%) 8.5 % 0.0-10.0 N EOSINOPHIL % (test code = EO%) 0.7 % 0.0-5.0 N BASOPHIL % (test code = BA%) 1.2 % 0.0-1.0 H NUCLEATED RBC % (test code = 0.0 % 0-0 N NRBC%) NEUTROPHIL # (test code = NT#) 3.24 K/mm3 1.8-7.7 N IMMATURE GRANULOCYTE # (test 0.03 x10 3/uL 0-0.03 N code = IG#) LYMPHOCYTE # (test code = LY#) 2.11 K/mm3 1.0-5.0 N MONOCYTE # (test code = MO#) 0.51 K/mm3 0-0.8 N EOSINOPHIL # (test code = EO#) 0.04 K/mm3 0.0-0.5 N BASOPHIL # (test code = BA#) 0.07 K/mm3 0.0-0.2 N NUCLEATED RBC # (test code = 0.00 K/mm3 0.0-0.1 N NRBC#) MANUAL DIFF REQUIRED (test code NO = MDIFF) Acetaminophen [id number] 16:31:51 Test Item Value Reference Range Interpretation Comments Acetaminophen Level (test code = <3 mcg/mL 10-30 L Acetaminophen Level) Lactic Acid, Plasma (Venous)2019-06-10 15:29:07 Test Item Value Reference Range Interpretation Comments Lactic Acid, Plasma 4.3 mmol/L 0.4-2.0 Results called to and (Venous) (test code = read b bibk by: Alvarez Lactic Acid, Plasma Harley Rooney 06/10/2019 (Venous)) 15:29:02 COOK SHIP/mm US [id number] 14:21:05Patient: SHELTON KUMAR Date/Time06/10/2019 13:34 CSTReason for ExamAbdominal pain, right upper quadrantReportGALLBLADDER ULTRASOUND:REASON FOR STUDY: Abdominal pain, right upper quadrantMultiple views of the gallbladder were made. Gallbladderappears distended with mild wall thickening and pericholecystic fluid suspect for acute cholecystitis. There is a fold in the gallbladder with substantial distention and layering echogenic material sugg esting sludge. Correlation with hepatobiliary scan may be helpful. Gallbladder wall thickness is 4.7mm. Liver is substantially enlarged with echodense pattern suggesting diffuse fatty metamorphosis. Liver measures at least 27 cm in length. No evidence of dilatation of common duct is detected. Pancreas was obscured by bowel. Visualized right kidney is unremarkable. Patient did complain of generalizedabdominal tenderness.IMPRESSION:Substantially distended gallbladder with wall thickening and mild pericholecystic fluid suspect for acute cholecystitis. Correlate clinically and if warranted a hepatobiliary scan may be helpful. There is layering echogenic material in the gallbladder suggesting sludge.Common duct could not be visualized. No obvious intrahepatic duct dilatation.Enlarged fatty liver. Final Dictated by: MD Michaels Craig ADictated DT/TM: 06/10/2019 2:18 pmSigned by: MD Michaels Craig ASigned (Electronic Signature): 06/10/2019 2:21 pmDrugs of Abuse Screen [id number] 14:09:25 Test Item Value Reference Range Interpretation Comments Amphetamine Screen Ur Negative Negative (test code = Amphetamine Screen Ur) Barbiturate Screen Ur Negative Negative (test code = Barbiturate Screen Ur) Benzodiazepines Ur Positive Negative A (test code = Benzodiazepines Ur) Cocaine Screen Ur Negative Negative (test code = Cocaine Screen Ur) Opiate Screen Ur (test Negative Negative code = Opiate Screen Ur) U PCP Scrn (test code Negative N = U PCP Scrn) Cannabinoid Screen Ur Negative Negative This a ssay provides a (test code = preliminary velvet lytical Cannabinoid Screen Ur) test result intended for medical purpose s only. Confirmation wi ll be sent to a Refer ence Lab only upon addit ional physician reque st.The cutoff levels u sed for this assay are as followsAmphetam ine 1000 ng/mlBarbi tuates 300 ng/mlBenzodiaze pine 300 ng.ml Cocaine 300 ng/mlOpia bradley 300 ng/ mlPCP 25 ng/mlTHC 50 ng/ml pH Ur (test code = pH 7.0 5.0-9.0 Ur) Urinalysis [id number] 13:56:48 Test Item Value Reference Range Interpretation Comments UA WBC (test code = UA WBC) 11-20 /HPF 0-5 A UA RBC (test code = UA RBC) 0-4 /HPF 0-4 UA Bacteria (test code = UA Negative /HPF Negative Bacteria) UA Squam Epithelial (test code 21-73 /LPF 0-20 A = UA Squam Epithelial) UA Hyal Cast (test code = UA 1-6 /LPF 1-6 Hyal Cast) Urinalysis with Culture, if [id number] 13:56:48 Test Item Value Reference Range Interpretation Comments UA Color (test code = UA Dk Yellow Yellow A Color) UA Appear (test code = Error N UA Appear) UA pH (test code = UA 7.0 pH) UA Spec Grav (test code 1.009 SGU 1.005-1.030 = UA Spec Grav) UA Glucose (test code = Negative Negative UA Glucose) UA Bili (test code = UA 3+ Negative A Bili) UA Ketones (test code = Negative Negative UA Ketones) UA Blood (test code = UA Negative Negative Blood) UA Protein (test code = Negative Negative UA Protein) UA Urobilinogen (test 1.0 EU/dL >0.2 code = UA Urobilinogen) UA Nitrite (test code = Positive Negative A UA Nitrite) UA Leuk Est (test code = Negative Negative UA Leuk Est) UA Micro Ind? (test code Indicated Not Indicated A Re sult created by = UA Micro Ind?) rule GL_SET_UA_MICRO _IND Urinalysis with Culture, if [id number] 13:56:48 Test Item Value Reference Range Interpretation Comments UA Color (test code Dk Yellow Yellow A = UA Color) UA Appear (test code Cloudy Clear A URINE A PPEARANCE: = UA Appear) CLOUDYINSTRUMEN T GAVE ERROR UA pH (test code = 7.0 UA pH) UA Spec Grav (test 1.009 SGU 1.005-1.030 code = UA Spec Grav) UA Glucose (test Negative Negative code = UA Glucose) UA Bili (test code = 3+ Negative A UA Bili) UA Ketones (test Negative Negative code = UA Ketones) UA Blood (test code Negative Negative = UA Blood) UA Protein (test Negative Negative code = UA Protein) UA Urobilinogen 1.0 EU/dL >0.2 (test code = UA Urobilinogen) UA Nitrite (test Positive Negative A code = UA Nitrite) UA Leuk Est (test Negative Negative code = UA Leuk Est) UA Micro Ind? (test Indicated Not Indicated A Result created by rule code = UA Micro GL_SET_UA_MI CRO_IND Ind?) CT Brain/Head w/o [id number] 12:57:00Patient: SHELTON KUMAR Date/Time06/10/2019 12:51 CSTReason for ExamConfusionReportCT brain without contrastHISTORY: Ethanol intoxication, confusion, tremorsCOMPARISON: NoneTECHNIQUE: Helical noncontrast tomographic imaging obtained through thebrain. Dose reduction technique performed per ALARAFINDINGS: Midline is nondisplaced. No hydrocephalus. Duque- white differentiation is preserved. No mass effect or acute intracranial blood products. Surrounding calvarium is intact. Included paranasal sinuses and mastoid air cells well aerated.IMPRESSION: No CT evidence of acute cortical stroke or intracranial hemorrhage. Final Dictated by: MD Angelito, Caterinactmaeve DT/TM: 06/10/2019 12:55 pmSigned by: MD Angelito, Woodrowgnpebbles (Electronic Signature): 06/10/2019 12:57 pmBeta HCG [id number] 12:53:31 Test Item Value Reference Range Interpretation Comments Beta HCG, Serum Qualitative (test Negative Negative code = Beta HCG, Serum Qualitative) Ammonia [id number] 12:41:20 Test Item Value Reference Range Interpretation Comments Ammonia Level (test code = Ammonia <5 mmol/L 19-54 L Level) Comprehensive Metabolic [id number] 12:09:42 Test Item Value Reference Range Interpretation Comments Sodium Level (test 134 mmol/L 136-145 L code = Sodium Level) Potassium Level (test 2.7 mmol/L 3.5-5.1 Critic al results code = Potassium called to ARTY Level) AVE GARAY at 06/10/2019 12:09 :33 COOK SHIP by _ACS. R ead back and verifi ed? _MB Chloride Level (test 94 mmol/L 98-107 L code = Chloride Level) CO2 (test code = CO2) 22 mmol/L 21-32 Anion Gap (test code 18 mmol/L 7-16 H = Anion Gap) BUN (test code = BUN) 8 mg/dL 7-18 Creatinine Level 0.8 mg/dL 0.6-1.0 (test code = Creatinine Level) Glucose Level (test 87 mg/dL 74-106 code = Glucose Level) Calcium Level (test 7.3 mg/dL 8.5-10.1 L code = Calcium Level) Alk Phos (test code = 368 IntlUnit/L 50-136 H Alk Phos) Bilirubin Total (test 11.5 mg/dL 0.2-1.0 Critic al results code = Bilirubin called to Cinthya BARROW Total) AVE GARAY at 06/10/2019 12:09 :33 COOK SHIP by _ACS. R ead back and verifi ed? _MB Albumin Level (test 1.9 g/dL 3.4-5.0 L code = Albumin Level) Protein Total (test 6.2 g/dL 6.4-8.2 L code = Protein Total) ALT (test code = ALT) 88 IntlUnit/L 12-78 H AST (test code = AST) 529 IntlUnit/L 15-37 H Alcohol [id number] 12:09:42 Test Item Value Reference Range Interpretation Comments Ethanol Level (test 324 mg/dL 0-13 Critical results code = Ethanol Level) called to JERALD GARAY RN at 06/10/2019 12:09 :33 COOK SHIP by _ACS. Read back and verified? _ MB Comprehensive Metabolic [id number] 12:09:42 Test Item Value Reference Range Interpretation Comments Sodium Level (test 134 mmol/L 136-145 L code = Sodium Level) Potassium Level (test 2.7 mmol/L 3.5-5.1 Critic al results code = Potassium called to Cinthya BARROW Level) AVE GARAY at 06/10/2019 12:09 :33 COOK SHIP by _ACS. R ead back and verifi ed? _MB Chloride Level (test 94 mmol/L 98-107 L code = Chloride Level) CO2 (test code = CO2) 22 mmol/L 21-32 Anion Gap (test code 18 mmol/L 7-16 H = Anion Gap) BUN (test code = BUN) 8 mg/dL 7-18 Creatinine Level 0.8 mg/dL 0.6-1.0 (test code = Creatinine Level) Glucose Level (test 87 mg/dL 74-106 code = Glucose Level) Calcium Level (test 7.3 mg/dL 8.5-10.1 L code = Calcium Level) Alk Phos (test code = 368 IntlUnit/L 50-136 H Alk Phos) Bilirubin Total (test 11.5 mg/dL 0.2-1.0 Critic al results code = Bilirubin called to Kid Bunch Total) AVE GARAY at 06/10/2019 12:09 :33 COOK SHIP by _ACS. R ead back and verifi ed? _MB Albumin Level (test 1.9 g/dL 3.4-5.0 L code = Albumin Level) Protein Total (test 6.2 g/dL 6.4-8.2 L code = Protein Total) ALT (test code = ALT) 88 IntlUnit/L 12-78 H AST (test code = AST) 529 IntlUnit/L 15-37 H eGFR AA (test code = >60 mL/min/1.73 N eGFR AA) m2 Comprehensive Metabolic [id number] 12:09:42 Test Item Value Reference Range Interpretation Comments Sodium Level (test 134 mmol/L 136-145 L code = Sodium Level) Potassium Level (test 2.7 mmol/L 3.5-5.1 Critic al results code = Potassium called to Kid Bunch Level) AVE GARAY at 06/10/2019 12:09 :33 COOK SHIP by _ACS. R ead back and verifi ed? _MB Chloride Level (test 94 mmol/L 98-107 L code = Chloride Level) CO2 (test code = CO2) 22 mmol/L 21-32 Anion Gap (test code 18 mmol/L 7-16 H = Anion Gap) BUN (test code = BUN) 8 mg/dL 7-18 Creatinine Level 0.8 mg/dL 0.6-1.0 (test code = Creatinine Level) Glucose Level (test 87 mg/dL 74-106 code = Glucose Level) Calcium Level (test 7.3 mg/dL 8.5-10.1 L code = Calcium Level) Alk Phos (test code = 368 IntlUnit/L 50-136 H Alk Phos) Bilirubin Total (test 11.5 mg/dL 0.2-1.0 Critic al results code = Bilirubin called to Cinthya BARROW Total) AVE GARAY at 06/10/2019 12:09 :33 COOK SHIP by _ACS. R ead back and verifi ed? _MB Albumin Level (test 1.9 g/dL 3.4-5.0 L code = Albumin Level) Protein Total (test 6.2 g/dL 6.4-8.2 L code = Protein Total) ALT (test code = ALT) 88 IntlUnit/L 12-78 H AST (test code = AST) 529 IntlUnit/L 15-37 H eGFR AA (test code = >60 mL/min/1.73 N eGFR AA) m2 eGFR Non-AA (test >60 mL/min/1.73 N code = eGFR Non-AA) m2 Creatine [id number] 12:08:07 Test Item Value Reference Range Interpretation Comments CK (test code = CK) 33 IntlUnit/L 26-192 Lipase [id number] 12:08:07 Test Item Value Reference Range Interpretation Comments Lipase Level (test code = 303 IntlUnit/L 73-393 Lipase Level) Thyroid Stimulating [id number] 12:08:07 Test Item Value Reference Range Interpretation Comments TSH (test code = TSH) 8.820 IntlUnit/mL 0.358-3.740 H Prothrombin Time and [id number] 11:50:40 Test Item Value Reference Range Interpretation Comments Prothrombin Time (test code = 24.1 seconds 9.2-12.0 H Prothrombin Time) INR (test code = INR) 2.4 ratio 0.9-1.2 H Lactic Acid, Plasma (Venous)2019-06-10 11:49:33 Test Item Value Reference Range Interpretation Comments Lactic Acid, Plasma 6.3 mmol/L 0.4-2.0 Critical results (Venous) (test code = called to JERADL Lactic Acid, Plasma JAMIE Kennedy RN at (Venous)) 06/10/2019 11:49 :19 CST_ by _ACS. Read back and verifi ed? MB_ Manual [id number] 11:49:02 Test Item Value Reference Range Interpretation Comments Segs Man (test code = Segs Man) 50 % N Lymph Man (test code = Lymph 45 % N Man) Monocyte Man (test code = 4 % N Monocyte Man) Eos Man (test code = Eos Man) 1 % N Basophil Man (test code = 0 % N Basophil Man) Neut Man Abs (test code = Neut 2.8 2.7-7.3 Man Abs) Lymph Man Abs (test code = Lymph 2.5 0.8-3.5 Man Abs) Merrick Man Abs (test code = Merrick 0.2 0.3-0.9 L Man Abs) Eos Man Abs (test code = Eos Man 0.1 0.0-0.3 Abs) Baso Man Abs (test code = Baso 0.0 0.0-0.1 Man Abs) RBC Morph (test code = RBC As Indicated Normal A Morph) Hypochromia (test code = 2+ A Hypochromia) Anisocyte (test code = 1+ A Anisocyte) Macrocyte (test code = 2+ A Macrocyte) Poik (test code = Poik) 1+ A Target Cells (test code = Target 1+ A Cells) Plt Estimation (test code = Plt Normal Normal Estimation) Complete Blood Count with [id number] 11:11:28 Test Item Value Reference Range Interpretation Comments WBC (test code = WBC) 5.5 x10 4.8-10.8 RBC (test code = RBC) 3.30 x10 4.20-5.50 L Hgb (test code = Hgb) 12.0 g/dL 12.0-16.0 MCV (test code = MCV) 113.8 fL 80.0-95.0 H Hct (test code = Hct) 37.5 % 35.0-47.0 RDW (test code = RDW) 16.9 % 11.5-14.5 H MCHC (test code = MCHC) 32.1 g/dL 31.0-36.0 MCH (test code = MCH) 36.5 pg 26.0-32.0 H Platelets (test code = Platelets) 126 x10 140-440 L MPV (test code = MPV) 10.1 fL 7.5-11.2 Slide Review (test code = Slide Smear N Review) Potassium [id number] 23:16:14 Test Item Value Reference Range Interpretation Comments Potassium Level (test code = 3.7 mmol/L 3.5-5.1 Potassium Level) Urine [id number] 12:44:15 Test Item Value Reference Range Interpretation Comments ORGANISM (test code = Escherichia coli ORGANISM) Amikacin (test code = S Amik) Ampicillin (test code = S Amp) Ampicillin/Sulbactam S (test code = Amp/Sul) Cefazolin (test code = S Cefaz) Cefepime (test code = S Cefep) Cefoxitin (test code = S Cefox) Ceftazidime (test code = S Ceftaz) Ceftriaxone (test code = S Ceftri) Ciprofloxacin (test code S = Cipro) ESBL Confirmation Test (test code = ESBL) Gentamicin (test code = S Gent) Levofloxacin (test code S = Levo) Meropenem (test code = S Miriam) Nitrofurantoin (test S code = Nitro) Piperacillin/Tazobactam S (test code = Pip/Aaron) Tobramycin (test code = S Tobra) Trimethoprim/Sulfa (test S code = SXT) Final Report (test code >=100,000 cfu/ml = Final Report) Escherichia coli C Urine Added by GL_SET_CULT_RFLXMagnesium [id number] 08:50:12 Test Item Value Reference Range Interpretation Comments Magnesium Level (test code = 1.6 mg/dL 1.6-2.6 Magnesium Level) Comprehensive Metabolic [id number] 05:35:10 Test Item Value Reference Range Interpretation Comments Sodium Level (test 140 mmol/L 136-145 code = Sodium Level) Potassium Level 2.7 mmol/L 3.5-5.1 ctrb/ m bieg alski / (test code = rn / li 05/10/19 20 Potassium Level) 05:35:04 CS T Chloride Level (test 102 mmol/L 98-107 code = Chloride Level) CO2 (test code = 29 mmol/L 21-32 CO2) Anion Gap (test code 9 mmol/L 7-16 = Anion Gap) BUN (test code = 3 mg/dL 7-18 L BUN) Creatinine Level 0.4 mg/dL 0.6-1.0 L (test code = Creatinine Level) Glucose Level (test 78 mg/dL 74-106 code = Glucose Level) Calcium Level (test 6.7 mg/dL 8.5-10.1 L code = Calcium Level) Alk Phos (test code 216 IntlUnit/L 50-136 H = Alk Phos) Bilirubin Total 2.3 mg/dL 0.2-1.0 H (test code = Bilirubin Total) Albumin Level (test 2.4 g/dL 3.4-5.0 L code = Albumin Level) Protein Total (test 5.5 g/dL 6.4-8.2 L code = Protein Total) ALT (test code = 66 IntlUnit/L 12-78 ALT) AST (test code = 309 IntlUnit/L 15-37 H AST) Comprehensive Metabolic [id number] 05:35:10 Test Item Value Reference Range Interpretation Comments Sodium Level (test 140 mmol/L 136-145 code = Sodium Level) Potassium Level 2.7 mmol/L 3.5-5.1 ctrb/ m jd layton / (test code = rn / li 05/10/19 20 Potassium Level) 05:35:04 CS T Chloride Level (test 102 mmol/L 98-107 code = Chloride Level) CO2 (test code = 29 mmol/L 21-32 CO2) Anion Gap (test code 9 mmol/L 7-16 = Anion Gap) BUN (test code = 3 mg/dL 7-18 L BUN) Creatinine Level 0.4 mg/dL 0.6-1.0 L (test code = Creatinine Level) Glucose Level (test 78 mg/dL 74-106 code = Glucose Level) Calcium Level (test 6.7 mg/dL 8.5-10.1 L code = Calcium Level) Alk Phos (test code 216 IntlUnit/L 50-136 H = Alk Phos) Bilirubin Total 2.3 mg/dL 0.2-1.0 H (test code = Bilirubin Total) Albumin Level (test 2.4 g/dL 3.4-5.0 L code = Albumin Level) Protein Total (test 5.5 g/dL 6.4-8.2 L code = Protein Total) ALT (test code = 66 IntlUnit/L 12-78 ALT) AST (test code = 309 IntlUnit/L 15-37 H AST) eGFR AA (test code = >60 mL/min/1.73 N eGFR AA) m2 Comprehensive Metabolic [id number] 05:35:10 Test Item Value Reference Range Interpretation Comments Sodium Level (test 140 mmol/L 136-145 code = Sodium Level) Potassium Level 2.7 mmol/L 3.5-5.1 ctrb/ m bieg alski / (test code = rn / li 05/10/19 20 Potassium Level) 05:35:04 CS T Chloride Level (test 102 mmol/L 98-107 code = Chloride Level) CO2 (test code = 29 mmol/L 21-32 CO2) Anion Gap (test code 9 mmol/L 7-16 = Anion Gap) BUN (test code = 3 mg/dL 7-18 L BUN) Creatinine Level 0.4 mg/dL 0.6-1.0 L (test code = Creatinine Level) Glucose Level (test 78 mg/dL 74-106 code = Glucose Level) Calcium Level (test 6.7 mg/dL 8.5-10.1 L code = Calcium Level) Alk Phos (test code 216 IntlUnit/L 50-136 H = Alk Phos) Bilirubin Total 2.3 mg/dL 0.2-1.0 H (test code = Bilirubin Total) Albumin Level (test 2.4 g/dL 3.4-5.0 L code = Albumin Level) Protein Total (test 5.5 g/dL 6.4-8.2 L code = Protein Total) ALT (test code = 66 IntlUnit/L 12-78 ALT) AST (test code = 309 IntlUnit/L 15-37 H AST) eGFR AA (test code = >60 mL/min/1.73 N eGFR AA) m2 eGFR Non-AA (test >60 mL/min/1.73 N code = eGFR Non-AA) m2 Lipid [id number] 05:23:18 Test Item Value Reference Range Interpretation Comments Cholesterol Total (test code = 213 mg/dL 0-200 H Cholesterol Total) Triglycerides (test code = 86 mg/dL 2-150 Triglycerides) HDL (test code = HDL) 69 mg/dL 45-65 H Chol/HDL (test code = Chol/HDL) 3 ratio 0-5 Lipid [id number] 05:23:18 Test Item Value Reference Range Interpretation Comments Cholesterol Total (test 213 mg/dL 0-200 H code = Cholesterol Total) Triglycerides (test 86 mg/dL 2-150 code = Triglycerides) HDL (test code = HDL) 69 mg/dL 45-65 H LDL (test code = LDL) 127 mg/dL 1-99 H The eq uation being used in this calculation is LDL = (Chol - HDL) - (Trig / 5) Chol/HDL (test code = 3 ratio 0-5 Chol/HDL) Lipase [id number] 05:23:17 Test Item Value Reference Range Interpretation Comments Lipase Level (test code = 172 IntlUnit/L 73-393 Lipase Level) Automated [id number] 04:50:43 Test Item Value Reference Range Interpretation Comments Neutro Auto (test code = Neutro Auto) 64.9 % N Lymph Auto (test code = Lymph Auto) 31.0 % N Merrick Auto (test code = Merrick Auto) 2.6 % N Eos, Auto (test code = Eos, Auto) 0.4 % N Basophil Auto (test code = Basophil 1.1 % N Auto) Neutro Absolute (test code = Neutro 2.7 x10 2.7-7.3 Absolute) Lymph Absolute (test code = Lymph 1.3 x10 0.8-3.5 Absolute) Merrick Absolute (test code = Merrick 0.1 x10 0.3-0.9 L Absolute) Eos Absolute (test code = Eos 0.0 x10 0.0-0.3 Absolute) Baso Absolute (test code = Baso 0.0 x10 0.0-0.1 Absolute) Complete Blood Count with [id number] 04:50:42 Test Item Value Reference Range Interpretation Comments WBC (test code = WBC) 4.1 x10 4.8-10.8 L RBC (test code = RBC) 3.05 x10 4.20-5.50 L Hgb (test code = Hgb) 10.7 g/dL 12.0-16.0 L Hct (test code = Hct) 31.8 % 35.0-47.0 L MCV (test code = MCV) 104.3 fL 80.0-95.0 H MCHC (test code = MCHC) 33.5 g/dL 31.0-36.0 RDW (test code = RDW) 21.0 % 11.5-14.5 H MCH (test code = MCH) 34.9 pg 26.0-32.0 H Platelets (test code = Platelets) 89 x10 140-440 L MPV (test code = MPV) 9.2 fL 7.5-11.2 Slide Review (test code = Slide Auto Review) POC [id number] 02:32:30 Test Item Value Reference Range Interpretation Comments Glucose POC (test 78 mg/dL 74-106 POC Glucos e used on code = Glucose POC) critical ly ill patients is considered " off-label use" and has no t been cleared or appr kell by the FDA. Altern ative testing methods should be considered i f the patient is crit ically ill. CT Abdomen and Pelvis w/ [id number] 22:43:24Patient: SHELTON KUMAR Date/Time05/09/2019 22:35 CSTReason for ExamDistention, abdomenReportOrdering Physician: Buck SchultzcunClinical Indication: Distention, abdomenAdditional Clinical Information:Comparison: 04/22/2019Technique: CT scan of the abdomen pelvis obtained with IV contrast. CT Scan was performed using ALARA principles.Findings: Previous study show no acute process.Today's exam demonstrates that in the lung bases there is no infiltrate or effusion. The heart size is normal. The liver is diffusely low in attenuation consistent with fatty infiltration. Adrenal glands and pancreas and gallbladder are normal. The kidneys enhance normally without hydronephrosis.There is wall thickening and mucosal enhancement involving the right and transverse colon without diverticulitis. This may be a colitis.In the pelvis the bladder is normal.There is no adnexal mass. There is no free fluid.IMPRESSION: New mild wall thickening mucosal enhancement involving the right and transverse colons consistent with diffuse colitis. No abscess or perforation.2. Fatty infiltration of liver.3. Slightly bilobed appearing gallbladder unchanged, probably ananatomic variant.4. No hydronephrosis.RL: [id number]: [id number] OF REPORT Final Dictated by: MD Irma, Aden SDictated DT/TM: 05/09/2019 10:47 pmSigned by: MD Irma, Aden SSigned (Electronic Signature): 05/09/2019 10:43 pmDrugs of Abuse Screen [id number] 22:11:00 Test Item Value Reference Range Interpretation Comments Amphetamine Screen Ur Negative Negative (test code = Amphetamine Screen Ur) Barbiturate Screen Ur Negative Negative (test code = Barbiturate Screen Ur) Benzodiazepines Ur Positive Negative A (test code = Benzodiazepines Ur) Cocaine Screen Ur Negative Negative (test code = Cocaine Screen Ur) Opiate Screen Ur (test Negative Negative code = Opiate Screen Ur) U PCP Scrn (test code Negative N = U PCP Scrn) Cannabinoid Screen Ur Negative Negative This a ssay provides a (test code = preliminary velvet lytical Cannabinoid Screen Ur) test result intended for medical purpose s only. Confirmation wi ll be sent to a Refer ence Lab only upon addit ional physician reque st.The cutoff levels u sed for this assay are as followsAmphetam ine 1000 ng/mlBarbi tuates 300 ng/mlBenzodiaze pine 300 ng.ml Cocaine 300 ng/mlOpia bradley 300 ng/ mlPCP 25 ng/mlTHC 50 ng/ml pH Ur (test code = pH 6.5 5.0-9.0 Ur) Urinalysis [id number] 22:08:15 Test Item Value Reference Range Interpretation Comments UA WBC (test code = UA WBC) >100 /HPF 0-5 A UA RBC (test code = UA RBC) 5-10 /HPF 0-4 A UA Bacteria (test code = UA 4+ /HPF Negative A Bacteria) UA Squam Epithelial (test code = TNTC /LPF N UA Squam Epithelial) UA Hyal Cast (test code = UA Hyal 11-20 /LPF 1-6 A Cast) Urinalysis with Culture, if [id number] 22:08:15 Test Item Value Reference Range Interpretation Comments UA Color (test code = UA Graham Yellow A Color) UA Appear (test code = Cloudy Clear A UA Appear) UA pH (test code = UA 6.5 pH) UA Spec Grav (test code 1.021 SGU 1.005-1.030 = UA Spec Grav) UA Glucose (test code = Negative Negative UA Glucose) UA Bili (test code = UA 1+ Negative A Bili) UA Ketones (test code = 1+ Negative A UA Ketones) UA Blood (test code = UA 2+ Negative A Blood) UA Protein (test code = 1+ Negative A UA Protein) UA Urobilinogen (test 1.0 EU/dL >0.2 code = UA Urobilinogen) UA Nitrite (test code = Positive Negative A UA Nitrite) UA Leuk Est (test code = 3+ Negative A UA Leuk Est) UA Micro Ind? (test code Indicated Not Indicated A Re sult created by = UA Micro Ind?) rule GL_SET_UA_MICRO _IND Alcohol [id number] 19:34:05 Test Item Value Reference Range Interpretation Comments Ethanol Level (test 320 mg/dL 0-13 Results called to and code = Ethanol Level) read b ack by: AVE Rice 05/09/2019 19:33 :58 COOK SHIP/mm Prothrombin Time and [id number] 17:06:58 Test Item Value Reference Range Interpretation Comments Prothrombin Time (test code = 11.8 seconds 9.2-12.0 Prothrombin Time) INR (test code = INR) 1.1 ratio 0.9-1.2 Comprehensive Metabolic [id number] 16:40:39 Test Item Value Reference Range Interpretation Comments Sodium Level (test 144 mmol/L 136-145 code = Sodium Level) Potassium Level (test 2.5 mmol/L 3.5-5.1 Result s called to code = Potassium and read ba ck by: Level) AVE [place] 05/09/2019 16:40 :33 COOK SHIP/mm Chloride Level (test 102 mmol/L 98-107 code = Chloride Level) CO2 (test code = CO2) 30 mmol/L 21-32 Anion Gap (test code 12 mmol/L 7-16 = Anion Gap) BUN (test code = BUN) 3 mg/dL 7-18 L Creatinine Level 0.5 mg/dL 0.6-1.0 L (test code = Creatinine Level) Glucose Level (test 99 mg/dL 74-106 code = Glucose Level) Calcium Level (test 7.2 mg/dL 8.5-10.1 L code = Calcium Level) Alk Phos (test code = 237 IntlUnit/L 50-136 H Alk Phos) Bilirubin Total (test 1.1 mg/dL 0.2-1.0 H code = Bilirubin Total) Albumin Level (test 2.6 g/dL 3.4-5.0 L code = Albumin Level) Protein Total (test 6.2 g/dL 6.4-8.2 L code = Protein Total) ALT (test code = ALT) 78 IntlUnit/L 12-78 AST (test code = AST) 341 IntlUnit/L 15-37 H Comprehensive Metabolic [id number] 16:40:39 Test Item Value Reference Range Interpretation Comments Sodium Level (test 144 mmol/L 136-145 code = Sodium Level) Potassium Level (test 2.5 mmol/L 3.5-5.1 Result s called to code = Potassium and read ba ck by: Level) AVE [place] 05/09/2019 16:40 :33 COOK SHIP/mm Chloride Level (test 102 mmol/L 98-107 code = Chloride Level) CO2 (test code = CO2) 30 mmol/L 21-32 Anion Gap (test code 12 mmol/L 7-16 = Anion Gap) BUN (test code = BUN) 3 mg/dL 7-18 L Creatinine Level 0.5 mg/dL 0.6-1.0 L (test code = Creatinine Level) Glucose Level (test 99 mg/dL 74-106 code = Glucose Level) Calcium Level (test 7.2 mg/dL 8.5-10.1 L code = Calcium Level) Alk Phos (test code = 237 IntlUnit/L 50-136 H Alk Phos) Bilirubin Total (test 1.1 mg/dL 0.2-1.0 H code = Bilirubin Total) Albumin Level (test 2.6 g/dL 3.4-5.0 L code = Albumin Level) Protein Total (test 6.2 g/dL 6.4-8.2 L code = Protein Total) ALT (test code = ALT) 78 IntlUnit/L 12-78 AST (test code = AST) 341 IntlUnit/L 15-37 H eGFR AA (test code = >60 mL/min/1.73 N eGFR AA) m2 Comprehensive Metabolic [id number] 16:40:39 Test Item Value Reference Range Interpretation Comments Sodium Level (test 144 mmol/L 136-145 code = Sodium Level) Potassium Level (test 2.5 mmol/L 3.5-5.1 Result s called to code = Potassium and read ba ck by: Level) AVE [place] 05/09/2019 16:40 :33 COOK SHIP/mm Chloride Level (test 102 mmol/L 98-107 code = Chloride Level) CO2 (test code = CO2) 30 mmol/L 21-32 Anion Gap (test code 12 mmol/L 7-16 = Anion Gap) BUN (test code = BUN) 3 mg/dL 7-18 L Creatinine Level 0.5 mg/dL 0.6-1.0 L (test code = Creatinine Level) Glucose Level (test 99 mg/dL 74-106 code = Glucose Level) Calcium Level (test 7.2 mg/dL 8.5-10.1 L code = Calcium Level) Alk Phos (test code = 237 IntlUnit/L 50-136 H Alk Phos) Bilirubin Total (test 1.1 mg/dL 0.2-1.0 H code = Bilirubin Total) Albumin Level (test 2.6 g/dL 3.4-5.0 L code = Albumin Level) Protein Total (test 6.2 g/dL 6.4-8.2 L code = Protein Total) ALT (test code = ALT) 78 IntlUnit/L 12-78 AST (test code = AST) 341 IntlUnit/L 15-37 H eGFR AA (test code = >60 mL/min/1.73 N eGFR AA) m2 eGFR Non-AA (test >60 mL/min/1.73 N code = eGFR Non-AA) m2 [id number] 16:26:03 Test Item Value Reference Range Interpretation Comments RBC Morph (test code = RBC As Indicated Normal A Morph) Anisocyte (test code = 1+ A Anisocyte) Plt Estimation (test code = Plt Normal Normal Estimation) [id number] 16:24:14 Test Item Value Reference Range Interpretation Comments Amylase Level (test code = 16 IntlUnit/L 25-115 L Amylase Level) Lipase [id number] 16:24:14 Test Item Value Reference Range Interpretation Comments Lipase Level (test code = 158 IntlUnit/L 73-393 Lipase Level) Beta HCG [id number] 16:14:09 Test Item Value Reference Range Interpretation Comments Beta HCG, Serum Qualitative (test Negative Negative code = Beta HCG, Serum Qualitative) Automated [id number] 15:52:17 Test Item Value Reference Range Interpretation Comments Neutro Auto (test code = Neutro Auto) 70.3 % N Lymph Auto (test code = Lymph Auto) 23.0 % N Merrick Auto (test code = Merrick Auto) 5.1 % N Eos, Auto (test code = Eos, Auto) 0.2 % N Basophil Auto (test code = Basophil 1.4 % N Auto) Neutro Absolute (test code = Neutro 3.7 x10 2.7-7.3 Absolute) Lymph Absolute (test code = Lymph 1.2 x10 0.8-3.5 Absolute) Merrick Absolute (test code = Merrick 0.3 x10 0.3-0.9 Absolute) Eos Absolute (test code = Eos 0.0 x10 0.0-0.3 Absolute) Baso Absolute (test code = Baso 0.1 x10 0.0-0.1 Absolute) Complete Blood Count with [id number] 15:52:16 Test Item Value Reference Range Interpretation Comments WBC (test code = WBC) 5.3 x10 4.8-10.8 RBC (test code = RBC) 3.47 x10 4.20-5.50 L Hgb (test code = Hgb) 12.5 g/dL 12.0-16.0 MCV (test code = MCV) 104.6 fL 80.0-95.0 H Hct (test code = Hct) 36.3 % 35.0-47.0 RDW (test code = RDW) 21.0 % 11.5-14.5 H MCHC (test code = MCHC) 34.3 g/dL 31.0-36.0 MCH (test code = MCH) 35.9 pg 26.0-32.0 H Platelets (test code = Platelets) 130 x10 140-440 L MPV (test code = MPV) 8.5 fL 7.5-11.2 Slide Review (test code = Slide Smear N Review) Urine [id number] 08:10:43 Test Item Value Reference Range Interpretation Comments ORGANISM (test code = Escherichia coli ORGANISM) Amikacin (test code = S Amik) Ampicillin (test code = S Amp) Ampicillin/Sulbactam S (test code = Amp/Sul) Cefazolin (test code = S Cefaz) Cefepime (test code = S Cefep) Cefoxitin (test code = S Cefox) Ceftazidime (test code = S Ceftaz) Ceftriaxone (test code = S Ceftri) Ciprofloxacin (test code S = Cipro) ESBL Confirmation Test (test code = ESBL) Gentamicin (test code = S Gent) Levofloxacin (test code S = Levo) Meropenem (test code = S Miriam) Nitrofurantoin (test S code = Nitro) Piperacillin/Tazobactam S (test code = Pip/Aaron) Tobramycin (test code = S Tobra) Trimethoprim/Sulfa (test S code = SXT) Final Report (test code >=100,000 cfu/ml = Final Report) Escherichia coli C Urine Added by GL_SET_CULT_RFLXComprehensive Metabolic [id number] 06:33:16 Test Item Value Reference Range Interpretation Comments Sodium Level (test code = 141 mmol/L 136-145 Sodium Level) Potassium Level (test code = 3.1 mmol/L 3.5-5.1 L Potassium Level) Chloride Level (test code = 102 mmol/L 98-107 Chloride Level) CO2 (test code = CO2) 33 mmol/L 21-32 H Anion Gap (test code = Anion 6 mmol/L 7-16 L Gap) BUN (test code = BUN) 5 mg/dL 7-18 L Creatinine Level (test code = 0.5 mg/dL 0.6-1.0 L Creatinine Level) Glucose Level (test code = 88 mg/dL 74-106 Glucose Level) Calcium Level (test code = 7.4 mg/dL 8.5-10.1 L Calcium Level) Alk Phos (test code = Alk 169 IntlUnit/L 50-136 H Phos) Bilirubin Total (test code = 3.0 mg/dL 0.2-1.0 H Bilirubin Total) Albumin Level (test code = 2.6 g/dL 3.4-5.0 L Albumin Level) Protein Total (test code = 5.6 g/dL 6.4-8.2 L Protein Total) ALT (test code = ALT) 97 IntlUnit/L 12-78 H AST (test code = AST) 619 IntlUnit/L 15-37 H Comprehensive Metabolic [id number] 06:33:16 Test Item Value Reference Range Interpretation Comments Sodium Level (test code = 141 mmol/L 136-145 Sodium Level) Potassium Level (test code 3.1 mmol/L 3.5-5.1 L = Potassium Level) Chloride Level (test code 102 mmol/L 98-107 = Chloride Level) CO2 (test code = CO2) 33 mmol/L 21-32 H Anion Gap (test code = 6 mmol/L 7-16 L Anion Gap) BUN (test code = BUN) 5 mg/dL 7-18 L Creatinine Level (test 0.5 mg/dL 0.6-1.0 L code = Creatinine Level) Glucose Level (test code = 88 mg/dL 74-106 Glucose Level) Calcium Level (test code = 7.4 mg/dL 8.5-10.1 L Calcium Level) Alk Phos (test code = Alk 169 IntlUnit/L 50-136 H Phos) Bilirubin Total (test code 3.0 mg/dL 0.2-1.0 H = Bilirubin Total) Albumin Level (test code = 2.6 g/dL 3.4-5.0 L Albumin Level) Protein Total (test code = 5.6 g/dL 6.4-8.2 L Protein Total) ALT (test code = ALT) 97 IntlUnit/L 12-78 H AST (test code = AST) 619 IntlUnit/L 15-37 H eGFR AA (test code = eGFR >60 mL/min/1.73 m2 N AA) Lipase [id number] 06:33:16 Test Item Value Reference Range Interpretation Comments Lipase Level (test code = 355 IntlUnit/L 73-393 Lipase Level) Comprehensive Metabolic [id number] 06:33:16 Test Item Value Reference Range Interpretation Comments Sodium Level (test code = 141 mmol/L 136-145 Sodium Level) Potassium Level (test code 3.1 mmol/L 3.5-5.1 L = Potassium Level) Chloride Level (test code 102 mmol/L 98-107 = Chloride Level) CO2 (test code = CO2) 33 mmol/L 21-32 H Anion Gap (test code = 6 mmol/L 7-16 L Anion Gap) BUN (test code = BUN) 5 mg/dL 7-18 L Creatinine Level (test 0.5 mg/dL 0.6-1.0 L code = Creatinine Level) Glucose Level (test code = 88 mg/dL 74-106 Glucose Level) Calcium Level (test code = 7.4 mg/dL 8.5-10.1 L Calcium Level) Alk Phos (test code = Alk 169 IntlUnit/L 50-136 H Phos) Bilirubin Total (test code 3.0 mg/dL 0.2-1.0 H = Bilirubin Total) Albumin Level (test code = 2.6 g/dL 3.4-5.0 L Albumin Level) Protein Total (test code = 5.6 g/dL 6.4-8.2 L Protein Total) ALT (test code = ALT) 97 IntlUnit/L 12-78 H AST (test code = AST) 619 IntlUnit/L 15-37 H eGFR AA (test code = eGFR >60 mL/min/1.73 m2 N AA) eGFR Non-AA (test code = >60 mL/min/1.73 m2 N eGFR Non-AA) [id number] 06:33:15 Test Item Value Reference Range Interpretation Comments Amylase Level (test code = 18 IntlUnit/L 25-115 L Amylase Level) Complete Blood Count with [id number] 05:43:08 Test Item Value Reference Range Interpretation Comments WBC (test code = WBC) 4.0 x10 4.8-10.8 L RBC (test code = RBC) 2.89 x10 4.20-5.50 L Hgb (test code = Hgb) 10.4 g/dL 12.0-16.0 L Hct (test code = Hct) 29.9 % 35.0-47.0 L MCV (test code = MCV) 103.6 fL 80.0-95.0 H MCHC (test code = MCHC) 34.7 g/dL 31.0-36.0 RDW (test code = RDW) 19.6 % 11.5-14.5 H MCH (test code = MCH) 35.9 pg 26.0-32.0 H Platelets (test code = 148 x10 140-440 Platelets) MPV (test code = MPV) 9.0 fL 7.5-11.2 Slide Review (test code Auto N Resu lt created by = Slide Review) GL_SET_SLIDE _REVIEW_A UTO Automated [id number] 05:43:08 Test Item Value Reference Range Interpretation Comments Neutro Auto (test code = Neutro Auto) 64.4 % N Lymph Auto (test code = Lymph Auto) 23.7 % N Merrick Auto (test code = Merrick Auto) 7.7 % N Eos, Auto (test code = Eos, Auto) 1.7 % N Basophil Auto (test code = Basophil 2.5 % N Auto) Neutro Absolute (test code = Neutro 2.6 x10 2.7-7.3 L Absolute) Lymph Absolute (test code = Lymph 1.0 x10 0.8-3.5 Absolute) Merrick Absolute (test code = Merrick 0.3 x10 0.3-0.9 Absolute) Eos Absolute (test code = Eos 0.1 x10 0.0-0.3 Absolute) Baso Absolute (test code = Baso 0.1 x10 0.0-0.1 Absolute) CT Abdomen and Pelvis w/ [id number] 20:28:41Patient: SHELTON KUMAR Date/Time04/22/2019 20:10 CSTReason for ExamPancreatitis, knownReportOrdering Physician: Dorys CabreraichHistory: Pancreatitis, known. Abdominal pain. Nausea. Vomiting.Comparison Study: None.Technique: Abdomen and pelvisCT with oral and intravenous contrast, [address] scan done according to ALARA (As Low as Reasonably Achievable).Findings:Lungs: Patchy lung base atelectasis, left more prominent than right. No infiltrates or effusions. No pneumothorax. No pulmonary nodules or masses.Cardiovascular: Heart isnot enlarged. Aorta and IVC are unremarkable.Liver: Diffuse decrease in attenuation. No focal lesions. Long axis measurement is 26 cm.Gallbladder: Folded gallbladder appearance. No signs of wall thickening or adjacent inflammation.Pancreas: Normal.Spleen: Normal.Kidneys: Normal.Adrenal glands: Normal.Bowel: Small hiatal hernia. Normal small bowel. Normal appendix. Normal colon.Free air or free fluid: None.Lymphadenopathy: None.Reproductive organs: Uterus and adnexal structures are unremarkable.Urinary bladder: Normal.Groins: No signs of hernia or lymphadenopathy.Bones and soft tissues: Bones are unremarkable. Soft tissues are unremarkable.IMPRESSION:1. No acute inflammatory changes or signs of bowel obstruction.2. No signs of pancreatitis.3. Hepatic steatosis and hepatomegaly are noted.RL: 1969. Final Dictated by: Contributor_system, PSCRIBE_CTZDictated DT/TM: 04/22/2019 8:34 pmSigned by: Dale LopezMDSigned (Electronic Signature): 04/22/2019 8:28 pmDrugs of Abuse Screen [id number] 16:22:25 Test Item Value Reference Range Interpretation Comments Amphetamine Screen Ur Negative N (test code = Amphetamine Screen Ur) Barbiturate Screen Ur Negative N (test code = Barbiturate Screen Ur) Benzodiazepines Ur Negative N (test code = Benzodiazepines Ur) Cocaine Screen Ur Negative N (test code = Cocaine Screen Ur) Opiate Screen Ur (test Negative N code = Opiate Screen Ur) U PCP Scrn (test code Negative N = U PCP Scrn) Cannabinoid Screen Ur Negative N This a ssay provides a (test code = preliminary velvet lytical Cannabinoid Screen Ur) test result intended for medical purpose s only. Confirmation wi ll be sent to a Refer ence Lab only upon addit ional physician reque st.The cutoff levels u sed for this assay are as followsAmphetam ine 1000 ng/mlBarbi tuates 300 ng/mlBenzodiaze pine 300 ng.ml Cocaine 300 ng/mlOpia bradley 300 ng/ mlPCP 25 ng/mlTHC 50 ng/ml pH Ur (test code = pH 6.0 5.0-9.0 Ur) Urinalysis with Culture, if [id number] 16:20:36 Test Item Value Reference Range Interpretation Comments UA Color (test code = UA Graham Yellow A Color) UA Appear (test code = Cloudy Clear A UA Appear) UA pH (test code = UA 6.0 pH) UA Spec Grav (test code 1.010 SGU 1.005-1.030 = UA Spec Grav) UA Glucose (test code = Negative Negative UA Glucose) UA Bili (test code = UA Negative Negative Bili) UA Ketones (test code = Negative Negative UA Ketones) UA Blood (test code = UA Trace Negative A Blood) UA Protein (test code = Negative Negative UA Protein) UA Urobilinogen (test 1.0 EU/dL >0.2 code = UA Urobilinogen) UA Nitrite (test code = Positive Negative A UA Nitrite) UA Leuk Est (test code = 3+ Negative A UA Leuk Est) UA Micro Ind? (test code Indicated Not Indicated A Re sult created by = UA Micro Ind?) rule GL_SET_UA_MICRO _IND Urinalysis [id number] 16:20:36 Test Item Value Reference Range Interpretation Comments UA WBC (test code = UA WBC) 21-50 /HPF 0-5 A UA RBC (test code = UA RBC) 0-4 /HPF 0-4 UA Bacteria (test code = UA Negative /HPF Negative Bacteria) UA Squam Epithelial (test code 0-20 /LPF 0-20 = UA Squam Epithelial) UA Hyal Cast (test code = UA 1-6 /LPF 1-6 Hyal Cast) HCG Qualitative [id number] 16:08:17 Test Item Value Reference Range Interpretation Comments hCG Ur (test code = Negative Negative Test res ults should be hCG Ur) confirmed using a serum sample prior to the perfromance of any critical medica l procedure. Prothrombin Time and [id number] 11:30:37 Test Item Value Reference Range Interpretation Comments Prothrombin Time (test code = 9.6 seconds 9.2-12.0 Prothrombin Time) INR (test code = INR) 0.9 ratio 0.9-1.2 Partial Thromboplastin [id number] 11:30:37 Test Item Value Reference Range Interpretation Comments Partial Thromboplastin 28.2 seconds 24.0-35.0 APTT Heparin Time (test code = Therapeuti c Range: Partial Thromboplastin 47.9- 80.4 seconds Time) Alcohol [id number] 11:10:18 Test Item Value Reference Range Interpretation Comments Ethanol Level (test 226 mg/dL 0-13 KELLEY/Tone PALACIOS RN code = Ethanol Level) 04/22/19 11:10:11 COOK SHIP/RSM [id number] 11:08:06 Test Item Value Reference Range Interpretation Comments Amylase Level (test code = 26 IntlUnit/L 25-115 Amylase Level) Lipase [id number] 11:08:06 Test Item Value Reference Range Interpretation Comments Lipase Level (test code = 508 IntlUnit/L 73-393 H Lipase Level) Magnesium [id number] 11:08:06 Test Item Value Reference Range Interpretation Comments Magnesium Level (test code = 1.0 mg/dL 1.6-2.6 L Magnesium Level) Comprehensive Metabolic [id number] 11:00:27 Test Item Value Reference Range Interpretation Comments Sodium Level (test 135 mmol/L 136-145 L code = Sodium Level) Potassium Level (test 2.6 mmol/L 3.5-5.1 KELLEY/Flower PALACIOS RN code = Potassium 04/22/2019 11 :00:22 Level) COOK SHIP/RSM Chloride Level (test 89 mmol/L 98-107 L code = Chloride Level) CO2 (test code = CO2) 28 mmol/L 21-32 Anion Gap (test code 18 mmol/L 7-16 H = Anion Gap) BUN (test code = BUN) 4 mg/dL 7-18 L Creatinine Level 0.6 mg/dL 0.6-1.0 (test code = Creatinine Level) Glucose Level (test 107 mg/dL 74-106 H code = Glucose Level) Calcium Level (test 8.2 mg/dL 8.5-10.1 L code = Calcium Level) Alk Phos (test code = 206 IntlUnit/L 50-136 H Alk Phos) Bilirubin Total (test 1.9 mg/dL 0.2-1.0 H code = Bilirubin Total) Albumin Level (test 3.2 g/dL 3.4-5.0 L code = Albumin Level) Protein Total (test 7.2 g/dL 6.4-8.2 code = Protein Total) ALT (test code = ALT) 106 IntlUnit/L 12-78 H AST (test code = AST) 525 IntlUnit/L 15-37 H Comprehensive Metabolic [id number] 11:00:27 Test Item Value Reference Range Interpretation Comments Sodium Level (test 135 mmol/L 136-145 L code = Sodium Level) Potassium Level (test 2.6 mmol/L 3.5-5.1 GALLO PALACIOS RN code = Potassium 04/22/2019 11 :00:22 Level) COOK SHIP/RSM Chloride Level (test 89 mmol/L 98-107 L code = Chloride Level) CO2 (test code = CO2) 28 mmol/L 21-32 Anion Gap (test code 18 mmol/L 7-16 H = Anion Gap) BUN (test code = BUN) 4 mg/dL 7-18 L Creatinine Level 0.6 mg/dL 0.6-1.0 (test code = Creatinine Level) Glucose Level (test 107 mg/dL 74-106 H code = Glucose Level) Calcium Level (test 8.2 mg/dL 8.5-10.1 L code = Calcium Level) Alk Phos (test code = 206 IntlUnit/L 50-136 H Alk Phos) Bilirubin Total (test 1.9 mg/dL 0.2-1.0 H code = Bilirubin Total) Albumin Level (test 3.2 g/dL 3.4-5.0 L code = Albumin Level) Protein Total (test 7.2 g/dL 6.4-8.2 code = Protein Total) ALT (test code = ALT) 106 IntlUnit/L 12-78 H AST (test code = AST) 525 IntlUnit/L 15-37 H eGFR AA (test code = >60 mL/min/1.73 N eGFR AA) m2 Comprehensive Metabolic [id number] 11:00:27 Test Item Value Reference Range Interpretation Comments Sodium Level (test 135 mmol/L 136-145 L code = Sodium Level) Potassium Level (test 2.6 mmol/L 3.5-5.1 KELLEY/Flower PALACIOS RN code = Potassium 04/22/2019 11 :00:22 Level) COOK SHIP/RSM Chloride Level (test 89 mmol/L 98-107 L code = Chloride Level) CO2 (test code = CO2) 28 mmol/L 21-32 Anion Gap (test code 18 mmol/L 7-16 H = Anion Gap) BUN (test code = BUN) 4 mg/dL 7-18 L Creatinine Level 0.6 mg/dL 0.6-1.0 (test code = Creatinine Level) Glucose Level (test 107 mg/dL 74-106 H code = Glucose Level) Calcium Level (test 8.2 mg/dL 8.5-10.1 L code = Calcium Level) Alk Phos (test code = 206 IntlUnit/L 50-136 H Alk Phos) Bilirubin Total (test 1.9 mg/dL 0.2-1.0 H code = Bilirubin Total) Albumin Level (test 3.2 g/dL 3.4-5.0 L code = Albumin Level) Protein Total (test 7.2 g/dL 6.4-8.2 code = Protein Total) ALT (test code = ALT) 106 IntlUnit/L 12-78 H AST (test code = AST) 525 IntlUnit/L 15-37 H eGFR AA (test code = >60 mL/min/1.73 N eGFR AA) m2 eGFR Non-AA (test >60 mL/min/1.73 N code = eGFR Non-AA) m2 Complete Blood Count with [id number] 10:29:47 Test Item Value Reference Range Interpretation Comments WBC (test code = WBC) 6.1 x10 4.8-10.8 RBC (test code = RBC) 3.60 x10 4.20-5.50 L Hgb (test code = Hgb) 12.7 g/dL 12.0-16.0 Hct (test code = Hct) 36.8 % 35.0-47.0 MCV (test code = MCV) 102.3 fL 80.0-95.0 H MCHC (test code = MCHC) 34.5 g/dL 31.0-36.0 RDW (test code = RDW) 19.0 % 11.5-14.5 H MCH (test code = MCH) 35.3 pg 26.0-32.0 H Platelets (test code = 200 x10 140-440 Platelets) MPV (test code = MPV) 9.0 fL 7.5-11.2 Slide Review (test code Auto N Resu lt created by = Slide Review) GL_SET_SLIDE _REVIEW_A UTO Automated [id number] 10:29:47 Test Item Value Reference Range Interpretation Comments Neutro Auto (test code = Neutro Auto) 58.4 % N Lymph Auto (test code = Lymph Auto) 30.5 % N Merrick Auto (test code = Merrick Auto) 10.0 % N Eos, Auto (test code = Eos, Auto) 0.2 % N Basophil Auto (test code = Basophil 0.9 % N Auto) Neutro Absolute (test code = Neutro 3.6 x10 2.7-7.3 Absolute) Lymph Absolute (test code = Lymph 1.9 x10 0.8-3.5 Absolute) Merrick Absolute (test code = Merrick 0.6 x10 0.3-0.9 Absolute) Eos Absolute (test code = Eos 0.0 x10 0.0-0.3 Absolute) Baso Absolute (test code = Baso 0.1 x10 0.0-0.1 Absolute) LIVER [id number] 03:51:00 Test Item Value Reference Range Interpretation Comments TOTPROT (test code = TOTPROT) 6.0 G/DL 6.3-8.2 L ALBUMIN (test code = ALBSERUM) 3.4 G/DL 3.5-5.0 L BILITOT (test code = BILITOT) 0.4 MG/DL 0.2-1.3 BILIDIR (test code = BILIDIR) 0.2 MG/DL 0.0-0.4 AST (test code = AST) 72 U/L 15-46 H PHOSALK (test code = PHOSALK) 105 U/L 38-126 ALT (test code = ALT) 69 U/L 13-69 [facility], BASIC METABOLIC [id number] 03:51:00 Test Item Value Reference Range Interpretation Comments SODIUM (test code = 137 MMOL/L 137-145 NA) K+ (test code = 4.3 MMOL/L 3.5-5.1 PLEASE NOTE NEW KSERUM) REFERENCE RANGE (S) IN EFFECT EFFECTIVE 010 - NEW ANALYZER (V ITROS 5600) CHLORIDE (test code 97 MMOL/L 98-107 L = CL) CO2 (test code = 33 MMOL/L 22-30 H CO2) BUN (test code = 7 MG/DL 7-17 BUN) CREA (test code = 0.6 MG/DL 0.7-1.2 L CREA) GLUCOSE (test code 100 MG/DL 70-99 H Fasting glucose = GLUCOSE) normal <100 MG/ DL- [employer] recommendation* * CALCIUM (test code 10.2 MG/DL 8.4-10.2 = CABLOOD) GFR (test code = 121 A GFR of >9 0 GFR) mL/min/1.73m2 mL/min/1.73m2 is considered norm al. BMP, BASIC METABOLIC [id number] 05:48:00 Test Item Value Reference Range Interpretation Comments SODIUM (test code = 136 MMOL/L 137-145 L NA) K+ (test code = 4.6 MMOL/L 3.5-5.1 PLEASE NOTE NEW KSERUM) REFERENCE RANGE (S) IN EFFECT EFFECTIVE 010 - NEW ANALYZER (V ITROS 5600) CHLORIDE (test code 102 MMOL/L 98-107 = CL) CO2 (test code = 28 MMOL/L 22-30 CO2) BUN (test code = 5 MG/DL 7-17 L BUN) CREA (test code = 0.5 MG/DL 0.7-1.2 L CREA) GLUCOSE (test code 99 MG/DL 70-99 Fasting glucose = GLUCOSE) normal <100 MG/ DL- [employer] recommendation* * CALCIUM (test code 9.7 MG/DL 8.4-10.2 = CABLOOD) GFR (test code = 149 A GFR of >9 0 GFR) mL/min/1.73m2 mL/min/1.73m2 is considered norm al. [id number] 05:48:00 Test Item Value Reference Range Interpretation Comments MG (test code = MG) 1.6 mg/dL 1.6-2.3 LIVER [id number] 05:47:00 Test Item Value Reference Range Interpretation Comments TOTPROT (test code = TOTPROT) 5.7 G/DL 6.3-8.2 L ALBUMIN (test code = ALBSERUM) 3.1 G/DL 3.5-5.0 L BILITOT (test code = BILITOT) 0.5 MG/DL 0.2-1.3 BILIDIR (test code = BILIDIR) 0.3 MG/DL 0.0-0.4 AST (test code = AST) 83 U/L 15-46 H PHOSALK (test code = PHOSALK) 129 U/L 38-126 H ALT (test code = ALT) 70 U/L 13-69 H BMP, BASIC METABOLIC [id number] 08:09:00 Test Item Value Reference Range Interpretation Comments SODIUM (test code = 138 MMOL/L 137-145 NA) K+ (test code = 4.0 MMOL/L 3.5-5.1 PLEASE NOTE NEW KSERUM) REFERENCE RANGE (S) IN EFFECT EFFECTIVE 010 - NEW ANALYZER (V ITROS 5600) CHLORIDE (test code 107 MMOL/L 98-107 = CL) CO2 (test code = 24 MMOL/L 22-30 CO2) BUN (test code = <2 MG/DL 7-17 L BUN) CREA (test code = 0.4 MG/DL 0.7-1.2 L CREA) GLUCOSE (test code 95 MG/DL 70-99 Fasting glucose = GLUCOSE) normal <100 MG/ DL- [employer] recommendation* * CALCIUM (test code 8.8 MG/DL 8.4-10.2 = CABLOOD) GFR (test code = 193 A GFR of >9 0 GFR) mL/min/1.73m2 mL/min/1.73m2 is considered norm al. RESULT VERIFIED BY REPEAT ANALYSIS ON ALTERNATE INSTRUMENT.[id number] 08:09:00 Test Item Value Reference Range Interpretation Comments MG (test code = MG) 1.5 mg/dL 1.6-2.3 L [id number] 08:09:00 Test Item Value Reference Range Interpretation Comments PHOSPHOR (test code = PHOSPHOR) 3.3 MG/DL 2.5-4.5 [id number] 08:09:00 Test Item Value Reference Range Interpretation Comments LIPASE (test code = LIPA) 424 U/L 23-300 H [id number] 05:40:00 Test Item Value Reference Range Interpretation Comments WBC (test code = 3.3 K/UL 3.5-10.9 L WBC) RBC (test code = 3.27 M/UL 4.0-5.0 L RBC) HGB (test code = 11.8 G/DL 11.5-15.5 HGB) HCT (test code = 36.3 % 34-46 HCT) MCV (test code = 111.0 FL 80-98 H MCV) MCH (test code = 36.1 PG 28-32 H MCH) MCHC (test code = 32.5 G/DL 32.5-36.5 MCHC) RDW (test code = 15.9 % 11.5-14.5 H RDW) PLT (test code = 113 K/UL 150-450 L PLT) MPV (test code = 12.3 FL 7.4-10.4 H MPV) MANDIFF (test code = NO MANDIFF) SCAN (test code = NO SCAN) NEUT% (test code = 40.1 % 40-75 NEUT%) LYMPH% (test code = 37.0 % 24-44 LYMPH%) MONO% (test code = 17.5 % 0-13 H MONO%) EOS% (test code = 3.6 % 0-4 EOS%) BASO % (test code = 1.5 % 0-2 BASO%) IG (test code = IG) 0 % 0-1 IG% (test code = 0.3 % 0-1 IG% = Metam yelocytes, IG%) Myelocytes, and Promyelocytes. (Immature neutr ophils not including " bands".) > 3% IG indic ates risk of sepsis NRBC% (test code = 0 /100 WBC NRBC%) ABS NEUT (test code 1.3 K/UL 1.2-7.2 = NEUT) CULTURE, [id number] 06:58:00 Test Item Value Reference Range Interpretation Comments CULTURIN (test code = CULTURIN) CULTURIN (test code = [id number]) [facility] 2019-02-05 1055 >100,000 CFU/ML [facility] 2019-02-05 1056 OXIDASE NEGATIVE GRAM NEGATIVE BACILLI ISOLATED PRELIMINARY REPORT [facility] 2019-02-05 1057 ID AND/OR SENSITIVITY TO FOLLOW PRELIMINARY REPORT [id number] 04:52:00 Test Item Value Reference Range Interpretation Comments SODIUM (test code = 139 MMOL/L 137-145 NA) K+ (test code = 4.1 MMOL/L 3.5-5.1 PLEASE NOTE NEW KSERUM) REFERENCE RANGE (S) IN EFFECT EFFECTIVE 010 - NEW ANALYZER (V ITROS 5600) CHLORIDE (test code 111 MMOL/L 98-107 H = CL) CO2 (test code = 24 MMOL/L 22-30 CO2) BUN (test code = <2 MG/DL 7-17 L BUN) CREA (test code = 0.4 MG/DL 0.7-1.2 L CREA) GLUCOSE (test code 111 MG/DL 70-99 H Fasting glucose = GLUCOSE) normal <100 MG/ DL- [employer] recommendation* * CALCIUM (test code 7.3 MG/DL 8.4-10.2 L = CABLOOD) TOTPROT (test code 5.5 G/DL 6.3-8.2 L = TOTPROT) ALBUMIN (test code 2.8 G/DL 3.5-5.0 L = ALBSERUM) BILITOT (test code 0.8 MG/DL 0.2-1.3 = BILITOT) AST (test code = 168 U/L 15-46 H AST) PHOSALK (test code 162 U/L 38-126 H = PHOSALK) ALT (test code = 96 U/L 13-69 H ALT) GFR (test code = 193 A GFR of >9 0 GFR) mL/min/1.73m2 mL/min/1.73m2 is considered norm al. [id number] 04:52:00 Test Item Value Reference Range Interpretation Comments MG (test code = MG) 1.7 mg/dL 1.6-2.3 [id number] 04:52:00 Test Item Value Reference Range Interpretation Comments PHOSPHOR (test code = PHOSPHOR) 2.0 MG/DL 2.5-4.5 L WHOLE BLOOD [id number] 04:30:00 Test Item Value Reference Range Interpretation Comments WHOLE BLOOD GLUCOSE 94 MG/DL 70-99 Fastin g glucose (test code = POC GLU) normal <100 MG/DL- [employer] recommendation* * [id number] 04:14:00 Test Item Value Reference Range Interpretation Comments WBC (test code = 3.3 K/UL 3.5-10.9 L WBC) RBC (test code = 3.10 M/UL 4.0-5.0 L RBC) HGB (test code = 11.4 G/DL 11.5-15.5 L HGB) HCT (test code = 33.9 % 34-46 L HCT) MCV (test code = 109.4 FL 80-98 H MCV) MCH (test code = 36.8 PG 28-32 H MCH) MCHC (test code = 33.6 G/DL 32.5-36.5 MCHC) RDW (test code = 16.5 % 11.5-14.5 H RDW) PLT (test code = 89 K/UL 150-450 L PLT) MPV (test code = 11.7 FL 7.4-10.4 H MPV) MANDIFF (test code = NO MANDIFF) SCAN (test code = NO SCAN) NEUT% (test code = 47.0 % 40-75 NEUT%) LYMPH% (test code = 32.2 % 24-44 LYMPH%) MONO% (test code = 14.8 % 0-13 H MONO%) EOS% (test code = 4.2 % 0-4 H EOS%) BASO % (test code = 1.5 % 0-2 BASO%) IG (test code = IG) 0 % 0-1 IG% (test code = 0.3 % 0-1 IG% = Metam yelocytes, IG%) Myelocytes, and Promyelocytes. (Immature neutr ophils not including " bands".) > 3% IG indic ates risk of sepsis NRBC% (test code = 1 /100 WBC REPORTED WBC COUNT HAS NRBC%) BEEN CORRECTED FOR NRBC ABS NEUT (test code 1.6 K/UL 1.2-7.2 = NEUT) WHOLE BLOOD [id number] 20:30:00 Test Item Value Reference Range Interpretation Comments WHOLE BLOOD GLUCOSE 140 MG/DL 70-99 H Fastin g glucose (test code = POC GLU) normal <100 MG/DL- [employer] recommend ation WHOLE BLOOD [id number] 17:45:00 Test Item Value Reference Range Interpretation Comments WHOLE BLOOD GLUCOSE 112 MG/DL 70-99 H Fastin g glucose (test code = POC GLU) normal <100 MG/DL- [employer] recommend ation WHOLE BLOOD [id number] 12:15:00 Test Item Value Reference Range Interpretation Comments WHOLE BLOOD GLUCOSE 115 MG/DL 70-99 H Fastin g glucose (test code = POC GLU) normal <100 MG/DL- [employer] recommend ation [id number] 11:51:00 Test Item Value Reference Range Interpretation Comments WBC (test code = 3.5 K/UL 3.5-10.9 WBC) RBC (test code = 3.18 M/UL 4.0-5.0 L RBC) HGB (test code = 11.5 G/DL 11.5-15.5 HGB) HCT (test code = 34.2 % 34-46 HCT) MCV (test code = 107.5 FL 80-98 H MCV) MCH (test code = 36.2 PG 28-32 H MCH) MCHC (test code = 33.6 G/DL 32.5-36.5 MCHC) RDW (test code = 15.8 % 11.5-14.5 H RDW) PLT (test code = 86 K/UL 150-450 L PLT) MPV (test code = 11.4 FL 7.4-10.4 H MPV) MANDIFF (test code = NO MANDIFF) SCAN (test code = NO SCAN) NEUT% (test code = 55.7 % 40-75 NEUT%) LYMPH% (test code = 26.3 % 24-44 LYMPH%) MONO% (test code = 11.7 % 0-13 MONO%) EOS% (test code = 4.9 % 0-4 H EOS%) BASO % (test code = 1.1 % 0-2 BASO%) IG (test code = IG) 0 % 0-1 IG% (test code = 0.3 % 0-1 IG% = Metam yelocytes, IG%) Myelocytes, and Promyelocytes. (Immature neutr ophils not including " bands".) > 3% IG indic ates risk of sepsis NRBC% (test code = 0 /100 WBC NRBC%) ABS NEUT (test code 2.0 K/UL 1.2-7.2 = NEUT) [id number] 10:53:00 Test Item Value Reference Range Interpretation Comments PHOSPHOR (test code = PHOSPHOR) 1.0 MG/DL 2.5-4.5 L [id number] 10:52:00 Test Item Value Reference Range Interpretation Comments SODIUM (test code = 139 MMOL/L 137-145 NA) K+ (test code = 3.0 MMOL/L 3.5-5.1 L PLEASE NOTE NEW KSERUM) REFERENCE RANGE (S) IN EFFECT EFFECTIVE 010 - NEW ANALYZER (V ITROS 5600) CHLORIDE (test code 109 MMOL/L 98-107 H = CL) CO2 (test code = 23 MMOL/L 22-30 CO2) BUN (test code = <2 MG/DL 7-17 L BUN) CREA (test code = 0.4 MG/DL 0.7-1.2 L CREA) GLUCOSE (test code 128 MG/DL 70-99 H Fasting glucose = GLUCOSE) normal <100 MG/ DL- [employer] recommendation* * CALCIUM (test code 6.6 MG/DL 8.4-10.2 LL = CABLOOD) TOTPROT (test code 5.3 G/DL 6.3-8.2 L = TOTPROT) ALBUMIN (test code 2.7 G/DL 3.5-5.0 L = ALBSERUM) BILITOT (test code 1.0 MG/DL 0.2-1.3 = BILITOT) AST (test code = 230 U/L 15-46 H AST) PHOSALK (test code 175 U/L 38-126 H = PHOSALK) ALT (test code = 101 U/L 13-69 H ALT) GFR (test code = 193 A GFR of >9 0 GFR) mL/min/1.73m2 mL/min/1.73m2 is considered norm al. RESULTS VERIFIED.C'd TO [facility] QUICKRN/ICU @ 1052 02/05/19--SBALIPASE 2019-02-05 10:52:00 Test Item Value Reference Range Interpretation Comments LIPASE (test code = LIPA) 365 U/L 23-300 H [id number] 10:52:00 Test Item Value Reference Range Interpretation Comments MG (test code = MG) 1.6 mg/dL 1.6-2.3 AMYLASE, [id number] 10:45:00 Test Item Value Reference Range Interpretation Comments AMYLASE (test code = AMYLBLD) <30 U/L 30-110 PROTHROMBIN TIME WITH [id number] 10:44:00 Test Item Value Reference Range Interpretation Comments PROTHROMBIN TIME 15.1 SECONDS 12.0-14.6 H INR Usual R rick = 2 (test code = PT) to 3 for pr evention of deep vein thrombosis (DVT ) INR (test code = INR) 1.2 [id number] 10:42:00 Test Item Value Reference Range Interpretation Comments PTT (test code = 28.1 SECONDS 24.4-36.3 HEPARIN THE RAPEUTIC PTT) RANGE 57-92 SEC ONDS WHOLE BLOOD [id number] 05:20:00 Test Item Value Reference Range Interpretation Comments WHOLE BLOOD GLUCOSE 90 MG/DL 70-99 Fastin g glucose (test code = POC GLU) normal <100 MG/DL- [employer] recommendation* * [id number] 22:07:00 Test Item Value Reference Range Interpretation Comments K+ (test code = 2.9 MMOL/L 3.5-5.1 LL RESULTS VERI FIED.C'd TO KSERUM) nathalia/icu/2206 / PLEASE NOTE NEW REFERENCE RANGE (S) IN EFFECT EFF ECTIVE 11/19/2009 - NEW ANALYZER (VITROS 5600) [id number] 22:06:00 Test Item Value Reference Range Interpretation Comments MG (test code = MG) 1.6 mg/dL 1.6-2.3 HEPATITIS C ANTIBODY [id number] 21:54:00 Test Item Value Reference Range Interpretation Comments SCRN HCV (test code NEGATIVE NEGATIVE Hepatiti s C Antibody test = SCRN HCV) is for screenin g purposes only. All react pa will be confirmed by additional test ing. ER SCREEN FOR HIV 21:54:00 Test Item Value Reference Range Interpretation Comments HIV 1/2 AB (test NEGATIVE NEGATIVE This test i s used for code = SCRN HIV) SCREENING p urposes only. All reactive re sults are prelimenary and confirmation re sults will follow. WHOLE BLOOD [id number] 20:50:00 Test Item Value Reference Range Interpretation Comments WHOLE BLOOD GLUCOSE 130 MG/DL 70-99 H Fastin g glucose (test code = POC GLU) normal <100 MG/DL- [employer] recommend ation WHOLE BLOOD [id number] 16:50:00 Test Item Value Reference Range Interpretation Comments WHOLE BLOOD GLUCOSE 93 MG/DL 70-99 Fastin g glucose (test code = POC GLU) normal <100 MG/DL- [employer] recommendation* * WHOLE BLOOD [id number] 12:30:00 Test Item Value Reference Range Interpretation Comments WHOLE BLOOD GLUCOSE 95 MG/DL 70-99 Fastin g glucose (test code = POC GLU) normal <100 MG/DL- [employer] recommendation* * [id number] 09:56:00 Test Item Value Reference Range Interpretation Comments MG (test code = MG) 0.8 mg/dL 1.6-2.3 LL RESULTS VERIFIED.C'd TO ICU/F.ASPEN @0955/ BMP, BASIC METABOLIC [id number] 09:53:00 Test Item Value Reference Range Interpretation Comments SODIUM (test code = 142 MMOL/L 137-145 NA) K+ (test code = 3.0 MMOL/L 3.5-5.1 L PLEASE NOTE NEW KSERUM) REFERENCE RANGE (S) IN EFFECT EFFECTIVE 010 - NEW ANALYZER (V ITROS 5600) CHLORIDE (test code 105 MMOL/L 98-107 = CL) CO2 (test code = 21 MMOL/L 22-30 L CO2) BUN (test code = 3 MG/DL 7-17 L BUN) CREA (test code = 0.5 MG/DL 0.7-1.2 L CREA) GLUCOSE (test code 55 MG/DL 70-99 L Fasting glucose = GLUCOSE) normal <100 MG/ DL- [employer] recommendation* * CALCIUM (test code 7.1 MG/DL 8.4-10.2 L = CABLOOD) GFR (test code = 149 A GFR of >9 0 GFR) mL/min/1.73m2 mL/min/1.73m2 is considered norm al. WHOLE BLOOD [id number] 08:00:00 Test Item Value Reference Range Interpretation Comments WHOLE BLOOD GLUCOSE 92 MG/DL 70-99 Fastin g glucose (test code = POC GLU) normal <100 MG/DL- [employer] recommendation* * WHOLE BLOOD [id number] 08:00:00 Test Item Value Reference Range Interpretation Comments WHOLE BLOOD GLUCOSE 60 MG/DL 70-99 L Fastin g glucose (test code = POC GLU) normal <100 MG/DL- [employer] recommendation* * ISTAT [id number] [id number] 03:50:00 Test Item Value Reference Range Interpretation Comments ISTATNA (test code = 141 MMOL/L 137-145 ISTATNA) ISTATK (test code = 2.9 MMOL/L 3.6-5.0 LL ISTATK) ISTATCL (test code = 104 MMOL/L 98-107 ISTATCL) ISTIONCA (test code = 0.98 MMOL/L 1.12-1.32 L ISTIONCA) ISTCO2 (test code = 18 MMOL/L 22-30 L ISTCO2) ISTATGLU (test code = 65 MG/DL 65-110 ISTATGLU) ISTATBUN (test code = <3.0 MG/DL 7.0-20.0 L ISTATBUN) ISTCREA (test code = 0.5 MG/DL 0.7-1.5 L ISTCREA) ISTATHCT (test code = 38 %PCV 37.0-52.0 ISTATHCT) ISTATHGB (test code = 12.9 G/DL 12.0-18.0 Notifi ed Nurse/MD of ISTATHGB) results outside of Reference Range s ISTANGAP (test code = 23 MMOL/L Notifi ed Nurse/MD of ISTANGAP) results outside of Reference Range s URINE DRUG [id number] 01:49:00 Test Item Value Reference Range Interpretation Comments AMPHET (test code = NEGATIVE NEGATIVE This is an unconfirmed BAMP) screening. Res ult are to be used for medical purposes (treat ment) only. Not inte nded for non-medical pur poses. Cut-off concent ration for a positive result for each drug: Amphetamine - 1 ,000 ng/ml Barbitura te - 200 ng/ml Benzodiaz epine - 200 ng/ml Canna binoids - 50 ng/ml Coca ine - 300 ng/ml Opiat es - 300 ng/ml PCP - 25 ng/ml BARBITURATES (test NEGATIVE NEGATIVE code = BBAR) BENZO (test code = POSITIVE NEGATIVE A BBENZ) CANNABS (test code = NEGATIVE NEGATIVE BCANN) COCAINE (test code = NEGATIVE NEGATIVE BCOC) OPIATES (test code = NEGATIVE NEGATIVE BOPI) PCP (test code = NEGATIVE NEGATIVE BMTPCP) [id number] 01:45:00 Test Item Value Reference Range Interpretation Comments GLUCOSE (test code = URGLU) NEGATIVE MG/DL NEG-100 BILIRUBN (test code = URBILI) LARGE NEGATIVE KETONE (test code = URKET) 40 MG/DL NEGATIVE BLOOD (test code = URBLD) NEGATIVE UR PH (test code = URPH) 5.5 5.0-7.5 PROTEIN (test code = URPRO) 30 MG/DL NEGATIVE NITRITES (test code = URNIT) POSITIVE NEGATIVE UROBILINGEN (test code = 1.0 EU/DL 0.2-1.0 URURO) LEUKOCYT (test code = URLEU) LARGE NEGATIVE UA COLOR (test code = UA ORANGE YELLOW COLOR) CLARITY (test code = CLARITY) TURBID CLEAR SP GRAV (test code = URSPGRAV) 1.023 1.000-1.025 UAMICRO (test code = UAMICRO) YES WBC (test code = URWBC) 247 /HPF 0-5 H RBC (test code = URRBC) 4 /HPF 0-2 H CASTS (test code = CAST) 38 /LPF 0-3 H UR EPI (test code = EPI) 63 /LPF BACTERIA (test code = TNTC NONE BACTERIA) BMP, BASIC METABOLIC [id number] 01:16:00 Test Item Value Reference Range Interpretation Comments SODIUM (test code = 140 MMOL/L 137-145 NA) K+ (test code = 3.0 MMOL/L 3.5-5.1 L PLEASE NOTE NEW KSERUM) REFERENCE RANGE (S) IN EFFECT EFFECTIVE 010 - NEW ANALYZER (V ITROS 5600) CHLORIDE (test code 100 MMOL/L 98-107 = CL) CO2 (test code = 20 MMOL/L 22-30 L CO2) BUN (test code = 6 MG/DL 7-17 L BUN) CREA (test code = 0.8 MG/DL 0.7-1.2 CREA) GLUCOSE (test code 73 MG/DL 70-99 Fasting glucose = GLUCOSE) normal <100 MG/ DL- [employer] recommendation* * CALCIUM (test code 8.2 MG/DL 8.4-10.2 L = CABLOOD) GFR (test code = 87 A GFR of >9 0 GFR) mL/min/1.73m2 mL/min/1.73m2 is considered norm al. [id number] 00:59:00 Test Item Value Reference Range Interpretation Comments LIPASE (test code = LIPA) 317 U/L 23-300 H LIVER [id number] 00:59:00 Test Item Value Reference Range Interpretation Comments TOTPROT (test code = TOTPROT) 6.7 G/DL 6.3-8.2 ALBUMIN (test code = ALBSERUM) 3.9 G/DL 3.5-5.0 BILITOT (test code = BILITOT) 2.7 MG/DL 0.2-1.3 H BILIDIR (test code = BILIDIR) 1.6 MG/DL 0.0-0.4 H AST (test code = AST) 289 U/L 15-46 H PHOSALK (test code = PHOSALK) 195 U/L 38-126 H ALT (test code = ALT) 125 U/L 13-69 H BLOOD ALCOHOL (ETOH)2019-02-04 00:59:00 Test Item Value Reference Range Interpretation Comments ALCOHOL BLOOD LEVEL <10 MG/DL 0-10 Results are to be used (test code = ALC BLD) for me dical purposes (treatment) onl y. Not intended for no n medical purpose s. ISTAT [id number] 00:55:00 Test Item Value Reference Range Interpretation Comments ISTAT HCG (test <5.0 IU/L A value of l ess than or code = ISHCG) equal to <5 IU /L is considered NEGA TIVE A value between 5 IU/L and 25 IU/L is cons idered INDETERMINATE A value of >25 IU/L is con sidered POSITIVE ISTAT [id number] [id number] 00:45:00 Test Item Value Reference Range Interpretation Comments ISTATNA (test code = 143 MMOL/L 137-145 ISTATNA) ISTATK (test code = 2.6 MMOL/L 3.6-5.0 LL ISTATK) ISTATCL (test code = 101 MMOL/L 98-107 ISTATCL) ISTIONCA (test code = 0.93 MMOL/L 1.12-1.32 L ISTIONCA) ISTCO2 (test code = 20 MMOL/L 22-30 L ISTCO2) ISTATGLU (test code = 64 MG/DL 65-110 L ISTATGLU) ISTATBUN (test code = 3.0 MG/DL 7.0-20.0 L ISTATBUN) ISTCREA (test code = 0.8 MG/DL 0.7-1.5 ISTCREA) ISTATHCT (test code = 36 %PCV 37.0-52.0 L ISTATHCT) ISTATHGB (test code = 12.2 G/DL 12.0-18.0 Notifi ed Nurse/MD of ISTATHGB) results outside of Reference Range s ISTANGAP (test code = 25 MMOL/L Notifi ed Nurse/MD of ISTANGAP) results outside of Reference Range s [id number] 00:45:00 Test Item Value Reference Range Interpretation Comments WBC (test code = 5.4 K/UL 3.5-10.9 WBC) RBC (test code = 3.64 M/UL 4.0-5.0 L RBC) HGB (test code = 13.1 G/DL 11.5-15.5 HGB) HCT (test code = 39.0 % 34-46 HCT) MCV (test code = 107.1 FL 80-98 H MCV) MCH (test code = 36.0 PG 28-32 H MCH) MCHC (test code = 33.6 G/DL 32.5-36.5 MCHC) RDW (test code = 15.4 % 11.5-14.5 H RDW) PLT (test code = 89 K/UL 150-450 L PLT) MPV (test code = 12.0 FL 7.4-10.4 H MPV) MANDIFF (test code = NO MANDIFF) SCAN (test code = NO SCAN) NEUT% (test code = 69.8 % 40-75 NEUT%) LYMPH% (test code = 19.5 % 24-44 L LYMPH%) MONO% (test code = 7.4 % 0-13 MONO%) EOS% (test code = 2.0 % 0-4 EOS%) BASO % (test code = 0.7 % 0-2 BASO%) IG (test code = IG) 0 % 0-1 IG% (test code = 0.6 % 0-1 IG% = Metam yelocytes, IG%) Myelocytes, and Promyelocytes. (Immature neutr ophils not including " bands".) > 3% IG indic ates risk of sepsis NRBC% (test code = 0 /100 WBC NRBC%) ABS NEUT (test code 3.8 K/UL 1.2-7.2 = NEUT) [id number] 14:07:00 Test Item Value Reference Range Interpretation Comments GLUCOSE (test code = URGLU) NEGATIVE MG/DL NEG-100 BILIRUBN (test code = URBILI) SMALL NEGATIVE KETONE (test code = URKET) TRACE MG/DL NEGATIVE BLOOD (test code = URBLD) MODERATE UR PH (test code = URPH) 6.0 5.0-7.5 PROTEIN (test code = URPRO) 100 MG/DL NEGATIVE NITRITES (test code = URNIT) POSITIVE NEGATIVE UROBILINGEN (test code = 1.0 EU/DL 0.2-1.0 URURO) LEUKOCYT (test code = URLEU) MODERATE NEGATIVE UA COLOR (test code = UA DARK YELLOW YELLOW COLOR) CLARITY (test code = CLARITY) TURBID CLEAR SP GRAV (test code = URSPGRAV) 1.023 1.000-1.025 UAMICRO (test code = UAMICRO) YES WBC (test code = URWBC) 117 /HPF 0-5 H RBC (test code = URRBC) 4 /HPF 0-2 H CASTS (test code = CAST) 0 /LPF 0-3 UR EPI (test code = EPI) 149 /LPF BACTERIA (test code = TNTC NONE BACTERIA) URINE DRUG [id number] 14:01:00 Test Item Value Reference Range Interpretation Comments AMPHET (test code = NEGATIVE NEGATIVE This is an unconfirmed BAMP) screening. Res ult are to be used for medical purposes (treat ment) only. Not inte nded for non-medical pur poses. Cut-off concent ration for a positive result for each drug: Amphetamine - 1 ,000 ng/ml Barbitura te - 200 ng/ml Benzodiaz epine - 200 ng/ml Canna binoids - 50 ng/ml Coca ine - 300 ng/ml Opiat es - 300 ng/ml PCP - 25 ng/ml BARBITURATES (test NEGATIVE NEGATIVE code = BBAR) BENZO (test code = NEGATIVE NEGATIVE BBENZ) CANNABS (test code = NEGATIVE NEGATIVE BCANN) COCAINE (test code = NEGATIVE NEGATIVE BCOC) OPIATES (test code = NEGATIVE NEGATIVE BOPI) PCP (test code = NEGATIVE NEGATIVE BMTPCP) BLOOD ALCOHOL (ETOH)2019-02-01 12:08:00 Test Item Value Reference Range Interpretation Comments ALCOHOL BLOOD LEVEL 155 MG/DL 0-10 H Results are to be used (test code = ALC BLD) for me dical purposes (treatment) onl y. Not intended for no n medical purpose s. [id number] 12:08:00 Test Item Value Reference Range Interpretation Comments SODIUM (test code = 142 MMOL/L 137-145 NA) K+ (test code = 3.2 MMOL/L 3.5-5.1 L PLEASE NOTE NEW KSERUM) REFERENCE RANGE (S) IN EFFECT EFFECTIVE 010 - NEW ANALYZER (V ITROS 5600) CHLORIDE (test code 99 MMOL/L 98-107 = CL) CO2 (test code = 26 MMOL/L 22-30 CO2) BUN (test code = 5 MG/DL 7-17 L BUN) CREA (test code = 0.5 MG/DL 0.7-1.2 L CREA) GLUCOSE (test code 116 MG/DL 70-99 H Fasting glucose = GLUCOSE) normal <100 MG/ DL- [employer] recommendation* * CALCIUM (test code 8.6 MG/DL 8.4-10.2 = CABLOOD) TOTPROT (test code 6.9 G/DL 6.3-8.2 = TOTPROT) ALBUMIN (test code 4.2 G/DL 3.5-5.0 = ALBSERUM) BILITOT (test code 0.7 MG/DL 0.2-1.3 = BILITOT) AST (test code = 552 U/L 15-46 H AST) PHOSALK (test code 226 U/L 38-126 H = PHOSALK) ALT (test code = 136 U/L 13-69 H ALT) GFR (test code = 149 A GFR of >9 0 GFR) mL/min/1.73m2 mL/min/1.73m2 is considered norm al. CREATINE [id number] 12:08:00 Test Item Value Reference Range Interpretation Comments CK (test code = CK) 52 U/L 30-135 [id number] 11:56:00 Test Item Value Reference Range Interpretation Comments WBC (test code = 4.9 K/UL 3.5-10.9 WBC) RBC (test code = 3.87 M/UL 4.0-5.0 L RBC) HGB (test code = 14.0 G/DL 11.5-15.5 HGB) HCT (test code = 40.7 % 34-46 HCT) MCV (test code = 105.2 FL 80-98 H MCV) MCH (test code = 36.2 PG 28-32 H MCH) MCHC (test code = 34.4 G/DL 32.5-36.5 MCHC) RDW (test code = 15.4 % 11.5-14.5 H RDW) PLT (test code = 126 K/UL 150-450 L PLT) MPV (test code = 11.6 FL 7.4-10.4 H MPV) MANDIFF (test code = NO MANDIFF) SCAN (test code = NO SCAN) NEUT% (test code = 64.0 % 40-75 NEUT%) LYMPH% (test code = 24.2 % 24-44 LYMPH%) MONO% (test code = 9.4 % 0-13 MONO%) EOS% (test code = 0.4 % 0-4 EOS%) BASO % (test code = 1.8 % 0-2 BASO%) IG (test code = IG) 0 % 0-1 IG% (test code = 0.2 % 0-1 IG% = Metam yelocytes, IG%) Myelocytes, and Promyelocytes. (Immature neutr ophils not including " bands".) > 3% IG indic ates risk of sepsis NRBC% (test code = 0 /100 WBC NRBC%) ABS NEUT (test code 3.1 K/UL 1.2-7.2 = NEUT) Acetaminophen [id number] 13:16:50<2Salicylate [id number] 13:16:50 <2Creatine [id number] 13:15:27 Test Item Value Reference Range Interpretation Comments CK (test code = CK) 77 IntlUnit/L 26-192 Thyroid Stimulating [id number] 13:15:27 Test Item Value Reference Range Interpretation Comments TSH (test code = TSH) 3.830 IntlUnit/mL 0.358-3.740 H Alcohol [id number] 13:15:27 Test Item Value Reference Range Interpretation Comments Ethanol Level (test code = Ethanol <3 mg/dL 0-13 Level) Comprehensive Metabolic [id number] 13:15:26 Test Item Value Reference Range Interpretation Comments Sodium Level (test code = 135 mmol/L 136-145 L Sodium Level) Potassium Level (test code = 3.7 mmol/L 3.5-5.1 Potassium Level) Chloride Level (test code = 91 mmol/L 98-107 L Chloride Level) CO2 (test code = CO2) 26 mmol/L 21-32 Anion Gap (test code = Anion 18 mmol/L 7-16 H Gap) BUN (test code = BUN) 15 mg/dL 7-18 Creatinine Level (test code = 1.1 mg/dL 0.6-1.0 H Creatinine Level) Glucose Level (test code = 184 mg/dL 74-106 H Glucose Level) Calcium Level (test code = 9.2 mg/dL 8.5-10.1 Calcium Level) Alk Phos (test code = Alk 108 IntlUnit/L 50-136 Phos) Bilirubin Total (test code = 2.7 mg/dL 0.2-1.0 H Bilirubin Total) Albumin Level (test code = 4.3 g/dL 3.4-5.0 Albumin Level) Protein Total (test code = 8.4 g/dL 6.4-8.2 H Protein Total) ALT (test code = ALT) 43 IntlUnit/L 12-78 AST (test code = AST) 113 IntlUnit/L 15-37 H Comprehensive Metabolic [id number] 13:15:26 Test Item Value Reference Range Interpretation Comments Sodium Level (test code = 135 mmol/L 136-145 L Sodium Level) Potassium Level (test code 3.7 mmol/L 3.5-5.1 = Potassium Level) Chloride Level (test code 91 mmol/L 98-107 L = Chloride Level) CO2 (test code = CO2) 26 mmol/L 21-32 Anion Gap (test code = 18 mmol/L 7-16 H Anion Gap) BUN (test code = BUN) 15 mg/dL 7-18 Creatinine Level (test 1.1 mg/dL 0.6-1.0 H code = Creatinine Level) Glucose Level (test code = 184 mg/dL 74-106 H Glucose Level) Calcium Level (test code = 9.2 mg/dL 8.5-10.1 Calcium Level) Alk Phos (test code = Alk 108 IntlUnit/L 50-136 Phos) Bilirubin Total (test code 2.7 mg/dL 0.2-1.0 H = Bilirubin Total) Albumin Level (test code = 4.3 g/dL 3.4-5.0 Albumin Level) Protein Total (test code = 8.4 g/dL 6.4-8.2 H Protein Total) ALT (test code = ALT) 43 IntlUnit/L 12-78 AST (test code = AST) 113 IntlUnit/L 15-37 H eGFR AA (test code = eGFR >60 mL/min/1.73 m2 N AA) Comprehensive Metabolic [id number] 13:15:26 Test Item Value Reference Range Interpretation Comments Sodium Level (test code = 135 mmol/L 136-145 L Sodium Level) Potassium Level (test code 3.7 mmol/L 3.5-5.1 = Potassium Level) Chloride Level (test code 91 mmol/L 98-107 L = Chloride Level) CO2 (test code = CO2) 26 mmol/L 21-32 Anion Gap (test code = 18 mmol/L 7-16 H Anion Gap) BUN (test code = BUN) 15 mg/dL 7-18 Creatinine Level (test 1.1 mg/dL 0.6-1.0 H code = Creatinine Level) Glucose Level (test code = 184 mg/dL 74-106 H Glucose Level) Calcium Level (test code = 9.2 mg/dL 8.5-10.1 Calcium Level) Alk Phos (test code = Alk 108 IntlUnit/L 50-136 Phos) Bilirubin Total (test code 2.7 mg/dL 0.2-1.0 H = Bilirubin Total) Albumin Level (test code = 4.3 g/dL 3.4-5.0 Albumin Level) Protein Total (test code = 8.4 g/dL 6.4-8.2 H Protein Total) ALT (test code = ALT) 43 IntlUnit/L 12-78 AST (test code = AST) 113 IntlUnit/L 15-37 H eGFR AA (test code = eGFR >60 mL/min/1.73 m2 N AA) eGFR Non-AA (test code = 57 mL/min/1.73 m2 N eGFR Non-AA) XR Chest 1 View [id number] 13:12:25Patient: SHELTON KUMAR Date/Time11/10/2018 12:42 CDTReason for ExamCongestionReportCHEST SINGLE VIEW:HISTORY: Congestion, psychiatric evaluation, respiratory evaluationCOMPARISON: 10/05/2018The cardiomediastinal structures show no significant abnormality.No pleural fluid or pulmonary infiltrates are identified.The bony architecture appears intact, where adequately seen.IMPRESSION:No active cardiopulmonary process is identified. Final Dictated by: MD Tomasz, Ahsan Resendezated DT/TM: 11/10/2018 1:12 pmSigned by: MD Tomasz, Ahsan Bartholomew (Electronic Signature): 11/10/2018 1:12 pmProthrombin Time and [id number] 12:46:47 Test Item Value Reference Range Interpretation Comments Prothrombin Time (test code = 11.2 seconds 9.2-12.0 Prothrombin Time) INR (test code = INR) 1.1 ratio 0.9-1.2 Partial Thromboplastin [id number] 12:46:47 Test Item Value Reference Range Interpretation Comments Partial Thromboplastin 23.6 seconds 24.0-35.0 L APTT Heparin Time (test code = Therapeuti c Range: Partial Thromboplastin 47.9- 80.4 seconds Time) Complete Blood Count with Bzgovhugtbxs1212-12-51 12:38:38 Test Item Value Reference Range Interpretation Comments WBC (test code = WBC) 7.0 x10 4.8-10.8 RBC (test code = RBC) 3.95 x10 4.20-5.50 L Hgb (test code = Hgb) 14.0 g/dL 12.0-16.0 Hct (test code = Hct) 40.9 % 35.0-47.0 MCV (test code = MCV) 103.4 fL 80.0-95.0 H RDW (test code = RDW) 15.7 % 11.5-14.5 H MCHC (test code = MCHC) 34.2 g/dL 31.0-36.0 MCH (test code = MCH) 35.4 pg 26.0-32.0 H Platelets (test code = 119 x10 140-440 L Platelets) MPV (test code = MPV) 9.4 fL 7.5-11.2 Slide Review (test code Auto N Resu lt created by = Slide Review) GL_SET_SLIDE _REVIEW_A UTO Automated [id number] 12:38:38 Test Item Value Reference Range Interpretation Comments Neutro Auto (test code = Neutro Auto) 74.9 % N Lymph Auto (test code = Lymph Auto) 17.6 % N Merrick Auto (test code = Merrick Auto) 6.6 % N Eos, Auto (test code = Eos, Auto) 0.1 % N Basophil Auto (test code = Basophil 0.8 % N Auto) Neutro Absolute (test code = Neutro 5.3 x10 2.7-7.3 Absolute) Lymph Absolute (test code = Lymph 1.2 x10 0.8-3.5 Absolute) Merrick Absolute (test code = Merrick 0.5 x10 0.3-0.9 Absolute) Eos Absolute (test code = Eos 0.0 x10 0.0-0.3 Absolute) Baso Absolute (test code = Baso 0.1 x10 0.0-0.1 Absolute) Rapid Plasma [id number] 16:42:18 Test Item Value Reference Range Interpretation Comments RPR (test code = RPR) Non-Reactive Non-Reactive Urine [id number] 09:54:25 Test Item Value Reference Range Interpretation Comments ORGANISM (test code = Enterococcus ORGANISM) faecalis Ampicillin (test code = S Amp) Ciprofloxacin (test code S = Cipro) Levofloxacin (test code = S Levo) Nitrofurantoin (test code S = Nitro) Benzylpenicillin (test S code = Ruddy) Erythromycin (test code = I Eryth) Gentamicin synergy (test S code = Gent-Syn) Linezolid (test code = S Linez) Streptomycin synergy S (test code = Strep-Syn) Tetracycline (test code = R Tetra) Vancomycin (test code = S Vanc) Final Report (test code = >=100,000 cfu/ml Final Report) Enterococcus faecalis C Urine Added by GL_SET_CULT_RFLXAlcohol [id number] 22:14:38 Test Item Value Reference Range Interpretation Comments Ethanol Level (test 279 mg/dL 0-13 Results called to and code = Ethanol Level) read b ack by: Celine Gonzales RN/ MR 10/05/2018 22:13 :59 CDT POC Urine [id number] 18:21:44 Test Item Value Reference Range Interpretation Comments Urine Preg POC (test Negative Negative Test re sults should be code = Urine Preg confirmed using a serum POC) sample prior to the performance of any critical medica l procedure. Internal QC (test Acceptable Acceptable code = Internal QC) Acetaminophen [id number] 17:43:48<2Alcohol [id number] 17:43:48 Test Item Value Reference Range Interpretation Comments Ethanol Level (test 496 mg/dL 0-13 Critical results code = Ethanol Level) called to AVE GAMBINO at 10/05/2018 17 :43:41 CDT by KH. Beverley kennedy back and verified? Y Comprehensive Metabolic [id number] 17:37:04 Test Item Value Reference Range Interpretation Comments Sodium Level (test code = 143 mmol/L 136-145 Sodium Level) Potassium Level (test code = 3.5 mmol/L 3.5-5.1 Potassium Level) Chloride Level (test code = 103 mmol/L 98-107 Chloride Level) CO2 (test code = CO2) 27 mmol/L 21-32 Anion Gap (test code = Anion 13 mmol/L 7-16 Gap) BUN (test code = BUN) 7 mg/dL 7-18 Creatinine Level (test code = 0.5 mg/dL 0.6-1.0 L Creatinine Level) Glucose Level (test code = 97 mg/dL 74-106 Glucose Level) Calcium Level (test code = 8.9 mg/dL 8.5-10.1 Calcium Level) Alk Phos (test code = Alk 128 IntlUnit/L 50-136 Phos) Bilirubin Total (test code = 0.6 mg/dL 0.2-1.0 Bilirubin Total) Albumin Level (test code = 4.4 g/dL 3.4-5.0 Albumin Level) Protein Total (test code = 8.4 g/dL 6.4-8.2 H Protein Total) ALT (test code = ALT) 159 IntlUnit/L 12-78 H AST (test code = AST) 295 IntlUnit/L 15-37 H Creatine [id number] 17:37:04 Test Item Value Reference Range Interpretation Comments CK (test code = CK) 118 IntlUnit/L 26-192 Comprehensive Metabolic [id number] 17:37:04 Test Item Value Reference Range Interpretation Comments Sodium Level (test code = 143 mmol/L 136-145 Sodium Level) Potassium Level (test code 3.5 mmol/L 3.5-5.1 = Potassium Level) Chloride Level (test code 103 mmol/L 98-107 = Chloride Level) CO2 (test code = CO2) 27 mmol/L 21-32 Anion Gap (test code = 13 mmol/L 7-16 Anion Gap) BUN (test code = BUN) 7 mg/dL 7-18 Creatinine Level (test 0.5 mg/dL 0.6-1.0 L code = Creatinine Level) Glucose Level (test code = 97 mg/dL 74-106 Glucose Level) Calcium Level (test code = 8.9 mg/dL 8.5-10.1 Calcium Level) Alk Phos (test code = Alk 128 IntlUnit/L 50-136 Phos) Bilirubin Total (test code 0.6 mg/dL 0.2-1.0 = Bilirubin Total) Albumin Level (test code = 4.4 g/dL 3.4-5.0 Albumin Level) Protein Total (test code = 8.4 g/dL 6.4-8.2 H Protein Total) ALT (test code = ALT) 159 IntlUnit/L 12-78 H AST (test code = AST) 295 IntlUnit/L 15-37 H eGFR AA (test code = eGFR >60 mL/min/1.73 m2 N AA) Thyroid Stimulating [id number] 17:37:04 Test Item Value Reference Range Interpretation Comments TSH (test code = TSH) 1.680 IntlUnit/mL 0.358-3.740 Salicylate [id number] 17:37:04 Test Item Value Reference Range Interpretation Comments Salicylate Level (test code = <1.7 mg/dL 2.8-20.0 L Salicylate Level) Comprehensive Metabolic [id number] 17:37:04 Test Item Value Reference Range Interpretation Comments Sodium Level (test code = 143 mmol/L 136-145 Sodium Level) Potassium Level (test code 3.5 mmol/L 3.5-5.1 = Potassium Level) Chloride Level (test code 103 mmol/L 98-107 = Chloride Level) CO2 (test code = CO2) 27 mmol/L 21-32 Anion Gap (test code = 13 mmol/L 7-16 Anion Gap) BUN (test code = BUN) 7 mg/dL 7-18 Creatinine Level (test 0.5 mg/dL 0.6-1.0 L code = Creatinine Level) Glucose Level (test code = 97 mg/dL 74-106 Glucose Level) Calcium Level (test code = 8.9 mg/dL 8.5-10.1 Calcium Level) Alk Phos (test code = Alk 128 IntlUnit/L 50-136 Phos) Bilirubin Total (test code 0.6 mg/dL 0.2-1.0 = Bilirubin Total) Albumin Level (test code = 4.4 g/dL 3.4-5.0 Albumin Level) Protein Total (test code = 8.4 g/dL 6.4-8.2 H Protein Total) ALT (test code = ALT) 159 IntlUnit/L 12-78 H AST (test code = AST) 295 IntlUnit/L 15-37 H eGFR AA (test code = eGFR >60 mL/min/1.73 m2 N AA) eGFR Non-AA (test code = >60 mL/min/1.73 m2 N eGFR Non-AA) Drugs of Abuse Screen [id number] 17:33:42 Test Item Value Reference Range Interpretation Comments Amphetamine Screen Ur Negative Negative (test code = Amphetamine Screen Ur) Barbiturate Screen Ur Negative Negative (test code = Barbiturate Screen Ur) Benzodiazepines Ur Negative Negative (test code = Benzodiazepines Ur) Cocaine Screen Ur Negative Negative (test code = Cocaine Screen Ur) Opiate Screen Ur (test Negative Negative code = Opiate Screen Ur) U PCP Scrn (test code Negative N = U PCP Scrn) Cannabinoid Screen Ur Negative Negative This a ssay provides a (test code = preliminary velvet lytical Cannabinoid Screen Ur) test result intended for medical purpose s only. Confirmation wi ll be sent to a Refer ence Lab only upon addit ional physician reque st.The cutoff levels u sed for this assay are as followsAmphetam ine 1000 ng/mlBarbi tuates 300 ng/mlBenzodiaze pine 300 ng.ml Cocaine 300 ng/mlOpia bradley 300 ng/ mlPCP 25 ng/mlTHC 50 ng/ml pH Ur (test code = pH 6.5 5.0-9.0 Ur) Complete Blood Count with [id number] 17:15:22 Test Item Value Reference Range Interpretation Comments WBC (test code = WBC) 5.0 x10 4.8-10.8 RBC (test code = RBC) 4.15 x10 4.20-5.50 L Hgb (test code = Hgb) 14.6 g/dL 12.0-16.0 Hct (test code = Hct) 43.2 % 35.0-47.0 MCV (test code = MCV) 103.9 fL 80.0-95.0 H MCHC (test code = MCHC) 33.9 g/dL 31.0-36.0 RDW (test code = RDW) 14.9 % 11.5-14.5 H MCH (test code = MCH) 35.3 pg 26.0-32.0 H Platelets (test code = 147 x10 140-440 Platelets) MPV (test code = MPV) 9.2 fL 7.5-11.2 Slide Review (test code Auto N Resu lt created by = Slide Review) GL_SET_SLIDE _REVIEW_A UTO Automated [id number] 17:15:22 Test Item Value Reference Range Interpretation Comments Neutro Auto (test code = Neutro Auto) 50.9 % N Lymph Auto (test code = Lymph Auto) 39.8 % N Merrick Auto (test code = Merrick Auto) 6.8 % N Eos, Auto (test code = Eos, Auto) 1.3 % N Basophil Auto (test code = Basophil 1.2 % N Auto) Neutro Absolute (test code = Neutro 2.5 x10 2.7-7.3 L Absolute) Lymph Absolute (test code = Lymph 2.0 x10 0.8-3.5 Absolute) Merrick Absolute (test code = Merrick 0.3 x10 0.3-0.9 Absolute) Eos Absolute (test code = Eos 0.1 x10 0.0-0.3 Absolute) Baso Absolute (test code = Baso 0.1 x10 0.0-0.1 Absolute) Urinalysis with Culture, if [id number] 17:15:06 Test Item Value Reference Range Interpretation Comments UA Color (test code = UA Yellow Yellow Color) UA Appear (test code = Cloudy Clear A UA Appear) UA pH (test code = UA 6.5 pH) UA Spec Grav (test code 1.009 SGU 1.005-1.030 = UA Spec Grav) UA Glucose (test code = Negative Negative UA Glucose) UA Bili (test code = UA Negative Negative Bili) UA Ketones (test code = Negative Negative UA Ketones) UA Blood (test code = UA 3+ Negative A Blood) UA Protein (test code = 1+ Negative A UA Protein) UA Urobilinogen (test 1.0 EU/dL >0.2 code = UA Urobilinogen) UA Nitrite (test code = Positive Negative A UA Nitrite) UA Leuk Est (test code = Negative Negative UA Leuk Est) UA Micro Ind? (test code Indicated Not Indicated A Re sult created by = UA Micro Ind?) rule GL_SET_UA_MICRO _IND Urinalysis [id number] 17:15:06 Test Item Value Reference Range Interpretation Comments UA WBC (test code = UA WBC) 0-5 /HPF 0-5 UA RBC (test code = UA RBC) 0-4 /HPF 0-4 UA Bacteria (test code = UA Negative /HPF Negative Bacteria) UA Squam Epithelial (test code 21-73 /LPF 0-20 A = UA Squam Epithelial) UA Hyal Cast (test code = UA 1-6 /LPF 1-6 Hyal Cast) XR Chest 1 View [id number] 16:48:53Patient: SHELTON KUMAR Date/Time10/05/2018 16:40 CDTReason for ExamChest painReportCHEST SINGLE VIEW:COMPARISON: 05/07/2015CLINICAL INFORMATION: Altered mental status, chest pain.Portable erect AP chest radiograph was submitted. Cardiomediastinal structures are within normal limits. No pleural fluid or pulmonary infiltrates are identified. The bony architecture appears intact, where adequately seen.IMPRESSION: No active cardiopulmonary process is identified. Final Dictated by: MD Webster Joseph ADictated DT/TM: 10/05/2018 4:48 pmSigned by: MD Webster Joseph ASigned (Electronic Signature): 10/05/2018 4:48 pm [id number] 13:50:005.5[facility] TvbaqcrNzhjcfcgx0229-82-85 13:50:13228 [facility] LncoqorRcmqhbcec2363-56-17 13:50:0074[facility] 2014-07-07 13:50:0044[facility] DcbvxspIpkltprji2730-64-77 13:50:0094[facility] JxgbacqMxsxzesle1166-73-52 13:50:62585 MEQ/LMemorial TiefciiOoxpqdwqm5265-91-61 13:50:004.2 MEQ/LMemorial TxhsexoIdisdutoj5686-58-52 13:50:000.8[facility]et [id number] 13:50:0019[facility] LzgxwyjGcoxjldld7083-22-45 13:50:00 Test Item Value Reference Range Interpretation Comments BUN/CREAT (test code = BUN/CREAT) 24 1 6-25 [facility] RprevkcGxgpxkzpg4456-42-64 13:50:004.0[facility] 2014-07-07 13:50:009.4[facility] KxukttsVobknfygk2918-95-82 13:50:0050[facility] AqzqcucQbupzwaps5084-31-44 13:50:0030[facility] HocjuanZxmumehca5812-87-60 13:50:0087[facility] NjzzvkaYbzyanfcs5368-25-95 13:50:001.000[facility] [place] Irvdqkcuoj6864-14-82 13:50:0013.3[facility] FhxylpzSbcqcpkrsb4945-25-50 13:50:00 40.1[facility] XcwsrfrOucahplvfr8205-09-74 13:50:14945 K/CMMMemorial [place] Snrulthzni3638-31-74 13:50:00[facility]ellowMemorial [place]
[2020-12-23 12:11] LABS: Urine Blood Negative (Negative); Urine Glucose Negative (Negative); Urine Protein Negative (Negative); Urine Specific Gravity 1.025 (1.005-1.030); Urine pH 6.5 (5.0-7.0)
--- NOTE | 2020-12-23 13:01 | RAD REPORT ---
EXAM DESCRIPTION: US - Abdomen Exam Limited - 12/23/2020 12:48 pm CLINICAL HISTORY: ABD PAIN COMPARISON: No comparisons FINDINGS: The gallbladder demonstrates no gallstones. No pericholecystic fluid. The gallbladder or i s contracted which simulates gallbladder wall thickening. The common bile duct is normal measuring 4 mm. The liver demonstrates no findings of intrahepatic biliary dilatation. IMPRESSION: Negative for cholelithiasis or acute cholecystitis.
[2020-12-23 13:21] LABS: Absolute Lymphocytes (CBC) 2.4 K/uL (0.7-4.9); Hematocrit 39.3 % (36.0-45.0); Lymphocytes % 17.4 % (15.3-44.8); MPV 9.4 fL (7.6-11.3)
[2020-12-23] MEDS ORDERED: KETOROLAC 30 MG/ML INJ ONE (13:28)
[2020-12-23 13:31] LABS: ALT/SGPT 36 U/L (12-78); AST/SGOT 18 U/L (15-37); Albumin 3.7 g/dL (3.4-5.0); Alkaline Phosphatase 97 U/L (45-117); BUN Blood Urea Nitrogen 8 mg/dL (7-18); Bicarbonate 25 mmol/L (21-32); Bilirubin Direct 0.1 mg/dL (0-0.2); Bilirubin Total 0.3 mg/dL (0.2-1.0); Glucose Level 112 mg/dL (74-106); Lipase 176 U/L (73-393); Potassium 3.7 mmol/L (3.5-5.1); Protein, Total 7.7 g/dL (6.4-8.2); Sodium Level 140 mmol/L (136-145)
--- NOTE | 2020-12-23 14:11 | ER ---
Nurse's Notes [facility] Name: Mini Cho Age: 35 yrs Sex: Female : 1985 Arrival Date: 12/23/2020 Time: 11:23 Bed 10 Private MD: Diagnosis: Upper abdominal pain, unspecified Presentation: 12/23 11:41 Chief complaint: Patient states: My right side of my stomach has been hurting for tw2 months. I have been bloated for months. I am having severe pain sometimes it comes and goes. I was [place] different [place] and was supposed to get my gallbladder out 2 years ago and was transferred for emergency surgery. I have a drinking problem and pill problem and am at [facility] so they wouldn't give me anything. Coronavirus screen: At this time, the client does not indicate any symptoms associated with coronavirus-19. Ebola Screen: Patient denies travel to an Ebola-affected area in the 21 days before illness onset. Initial Sepsis Screen: Does the patient meet any 2 criteria? HR > 90 bpm. Does the patient have a suspected source of infection? No. Patient's initial sepsis screen is negative. Risk Assessment: Do you want to hurt yourself or someone else? Patient reports no desire to harm self or others. Onset of symptoms was December 23, 2020. 11:41 Method Of Arrival: Ambulatory tw2 11:41 Acuity: LUCY 3 tw2 Triage Assessment: 11:41 General: Appears in no apparent distress. uncomfortable, Behavior is calm, cooperative, tw2 appropriate for age. Pain: Complains of pain in abdomen. GI: Reports lower abdominal pain, upper abdominal pain, nausea, vomiting, "i vomit just about every time i eat". 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 - Social history:: Smoking status: Patient reports the use of cigarette tobacco products, smokes two packs cigarettes per day. Patient uses alcohol, on a daily basis. drinking a gallon a vodka a day for years. Screenin:46 Abuse screen: Denies threats or abuse. Nutritional screening: No deficits noted. tw2 Tuberculosis screening: No symptoms or risk factors identified. Fall Risk None identified. Assessment: 12:32 General: Appears in no apparent distress. comfortable, Behavior is calm, cooperative. vg1 Pain: Complains of pain in epigastric area, right upper quadrant and right lower quadrant Pain currently is 8 out of 10 on a pain scale. Neuro: Level of Consciousness is awake, alert, obeys commands, Oriented to person, place, time, situation. Cardiovascular: Patient's skin is warm and dry. Respiratory: Airway is patent Respiratory effort is even, unlabored. GI: Abdomen is round non-distended, Last BM was December 23, 2020. Bowel sounds present X 4 quads. Reports epigastric pain, nausea, normal bowel habits, vomiting, Patient currently denies diarrhea. : No signs and/or symptoms were reported regarding the genitourinary system. EENT: No signs and/or symptoms were reported regarding the EENT system. Derm: Skin is intact, is healthy with good turgor. Musculoskeletal: Circulation, motion, and sensation intact. 13:40 Reassessment: Patient appears in no apparent distress at this time. No changes from vg1 previously documented assessment. Patient and/or family updated on plan of care and expected duration. Pain level reassessed. Patient is alert, oriented x 3, equal unlabored respirations, skin warm/dry/pink. 14:34 Reassessment: Patient appears in no apparent distress at this time. No changes from tw2 previously documented assessment. Patient and/or family updated on plan of care and expected duration. Pain level reassessed. Patient is alert, oriented x 3, equal unlabored respirations, skin warm/dry/pink. Vital Signs: 11:41 BP 112 / 78; Pulse 116; Resp 18; Temp 98.0; Pulse Ox 100% on R/A; Weight 72.57 kg (R); tw2 12:32 BP 108 / 67; Pulse 95; Resp 16; Pulse Ox 100% ; vg1 13:39 BP 104 / 75; Pulse 83; Resp 16; Pulse Ox 100% ; vg1 ED Course: 11:23 Patient arrived in ED. as 11:43 Triage completed. tw2 11:44 Arm band placed on. tw2 12:18 [facility] Mcintosh [facility]C [facility] kb 12:18 Estela Valdes MD is Attending Physician. kb 12:22 Simin Tolbert, RN is Primary Nurse. vg1 12:33 Allergy band placed. Bed in low position. Call light in reach. Adult w/ patient. vg1 12:48 US Abdomen Limited In Process Unspecified. EDMS 12:56 Initial lab(s) drawn, by me, sent to lab. Inserted saline lock: 20 gauge in right vg1 antecubital area, using aseptic technique. Blood collected. 14:34 No provider procedures requiring assistance completed. IV discontinued, intact, tw2 bleeding controlled, No redness/swelling at site. Pressure dressing applied. Administered Medications: 13:12 Drug: Ketorolac 30 mg Route: IVP; Site: right antecubital; vg1 13:41 Follow up: Response: No adverse reaction; Pain is unchanged, physician notified vg1 Outcome: 14:10 Discharge ordered by . kb 14:34 Discharged to staff is present with pt at this time tw2 14:34 Condition: stable 14:34 Discharge instructions given to patient, Instructed on discharge instructions, follow up and referral plans. 14:34 Patient left the ED. tw2 Signatures: Dispatcher [employer] EDNM Arely Mcinotsh FNP-C FNP-Ya Pa Tara RN RN tw2 Simin Tolbert, RN RN vg1 Corrections: (The following items were deleted from the chart) 11:41 11:36 Allergies: Trazodone; tw2 tw2
--- NOTE | 2020-12-23 14:11 | EDPHYS ---
Physician Documentation [facility] Name: Mini Cho Age: 35 yrs Sex: Female : 1985 Arrival Date: 12/23/2020 Time: 11:23 Bed 10 Private MD: ED Physician Estela Valdes HPI: 12/23 16:49 This 35 yrs old Female presents to ER via Ambulatory with complaints of kb Epigastric Pain, Abdominal Pain. 16:49 The patient presents with abdominal pain in the upper abdomen. Onset: The kb symptoms/episode began/occurred "months ago". The symptoms do not radiate. Associated signs and symptoms: Pertinent positives: distention. The symptoms are described as constant. Modifying factors: The symptoms are alleviated by nothing, the symptoms are aggravated by nothing. Severity of pain: At its worst the pain was mild in the emergency department the pain is unchanged. The patient has not experienced similar symptoms in the past. The patient has not recently seen a physician. Pt reports she has had abd pain and distention for months. Pt was seen by nurse at [facility] and told she had to come here for evaluation. 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 - Social history:: Smoking status: Patient reports the use of cigarette tobacco products, smokes two packs cigarettes per day. Patient uses alcohol, on a daily basis. drinking a gallon a vodka a day for years. ROS: 16:48 Constitutional: Negative for fever, chills, and weight loss. kb 16:48 Abdomen/GI: Positive for abdominal pain, abdominal distension, Negative for nausea, vomiting, and diarrhea. 16:48 All other systems are negative. Exam: 16:49 Constitutional: This is a well developed, well nourished patient who is awake, alert, kb and in no acute distress. Head/Face: Normocephalic, atraumatic. ENT: Moist Mucous membranes Cardiovascular: Regular rate and rhythm with a normal S1 and S2. No gallops, murmurs, or rubs. No pulse deficits. Respiratory: Respirations even and unlabored. No increased work of breathing, no retractions or nasal flaring. Skin: Warm, dry with normal turgor. Normal color. MS/ Extremity: Pulses equal, no cyanosis. Neurovascular intact. Full, normal range of motion. Neuro: Awake and alert, GCS 15, oriented to person, place, time, and situation. Moves all extremities. Normal gait. Psych: Awake, alert, with orientation to person, place and time. Behavior, mood, and affect are within normal limits. 16:49 Abdomen/GI: Inspection: distension, that is mild, Bowel sounds: normal, Palpation: soft, in all quadrants, mild abdominal tenderness, in the right upper quadrant and left upper quadrant. Vital Signs: 11:41 BP 112 / 78; Pulse 116; Resp 18; Temp 98.0; Pulse Ox 100% on R/A; Weight 72.57 kg (R); tw2 12:32 BP 108 / 67; Pulse 95; Resp 16; Pulse Ox 100% ; vg1 13:39 BP 104 / 75; Pulse 83; Resp 16; Pulse Ox 100% ; vg1 MDM: 12:18 Patient medically screened. kb 16:48 Data reviewed: vital signs, nurses notes. Data interpreted: Pulse oximetry: on room air kb is 100 %. Interpretation: normal. Counseling: I had a detailed discussion with the patient and/or guardian regarding: the historical points, exam findings, and any diagnostic results supporting the discharge/admit diagnosis, lab results, radiology results, the need for outpatient follow up, a wax bleacher, to return to the emergency department if symptoms worsen or persist or if there are any questions or concerns that arise at home. 12/23 12:11 Order name: Urine Dipstick-Ancillary EDMS 12/23 12:24 Order name: Basic Metabolic Panel; Complete Time: 13:33 kb 12/23 12:24 Order name: CBC with Diff; Complete Time: 13:27 kb 12/23 12:24 Order name: Hepatic Function; Complete Time: 13:33 kb 12/23 12:24 Order name: Lipase; Complete Time: 13:33 kb 12/23 12:24 Order name: US Abdomen Limited; Complete Time: 13:03 kb 12/23 12:24 Order name: IV Saline Lock; Complete Time: 12:56 kb 12/23 12:24 Order name: Labs collected and sent; Complete Time: 12:56 kb Administered Medications: 13:12 Drug: Ketorolac 30 mg Route: IVP; Site: right antecubital; vg1 13:41 Follow up: Response: No adverse reaction; Pain is unchanged, physician notified vg1 Disposition: 12/24 07:03 Co-signature as Attending Physician, Estela Valdes MD I agree with the assessment and sp3 plan of care. Disposition Summary: 12/23/20 14:10 Discharge Ordered Location: Home kb Condition: Stable kb Diagnosis - Upper abdominal pain, unspecified kb Followup: kb - With: Emergency Department - When: As needed - Reason: Worsening of condition Followup: kb - With: Private Physician - When: 2 - 3 days - Reason: Recheck today's complaints, Continuance of care, Re-evaluation by your physician Discharge Instructions: - Discharge Summary Sheet kb - Abdominal Pain, Adult, [id number] kb Forms: - Medication Reconciliation Form kb - Thank You Letter kb - Antibiotic Education kb - Prescription Opioid Use kb Signatures: Dispatcher [employer] Arely Walters, SASKIA-Brittany HOWARDP-Azalia Mcfarlane, RN RN tw2 Simin Tolbert RN RN vg1 Estela Valdes MD MD sp3 Corrections: (The following items were deleted from the chart) 12/23 11:41 11:36 Allergies: Trazodone; tw2 tw2
[2020-12-23 14:46] VITALS: TEMP 98; O2SAT 100
[2020-12-23 14:48] VITALS: BP 104/75
== END 2020-12-23 14:34 | disposition home or self-care (01) ==
LOC: ER 11:19
DX: R10.10 Upper abdominal pain, unspecified (principal); F17.210 Nicotine dependence, cigarettes, uncomplicated; F41.9 Anxiety disorder, unspecified; F10.20 Alcohol dependence, uncomplicated
CPT/HCPCS: 36415; 76705; 80048; 80076; 81003; 83690; 85025; 96374; 99284